=== PATIENT | male | born 1955 | race Caucasian/White ===

== ENCOUNTER 2021-04-13 07:36 | Outpatient (REF) | payer MEDICARE, SELFPAY ==
[2021-04-13 11:01] LABS: MANUAL DIFF FLAG NO
[2021-04-13 11:14] LABS: Appearance Urine HAZY; Color Urine YELLOW; Glucose Urine UA NEG (NEG); Leukocyte Esterase Urine NEG (NEG); Nitrite Urine NEG (NEG); Specific Gravity - Urine 1.025 (1.005-1.025); Urine Blood NEG (NEG); Urine Ketones NEG (NEG); Urine Protein NEG (NEG-TRACE)
[2021-04-13 11:17] LABS: Basophils Absolute Auto 0.1 X10*3/uL (0.0-0.2); Basophils Percent Auto 0.9 % (0-2); Eosinophils Absolute Auto 0.2 X10*3/uL (0.0-0.4); Eosinophils Percent Auto 3.6 % (0-4); Hematocrit 49.5 % (42.0-52.0); Hemoglobin 15.9 g/dl (14.0-18.0); Imm Gran Abs Auto 0.02 X10*3/uL (0.00-0.03); Imm Gran Pct Auto 0.3 % (0.0-0.4); Lymphocytes Absolute Auto 2.3 X10*3/uL (1.2-4.9); Lymphocytes Percent Auto 34.2 % (20-40); Mean Corpuscular HGB Conc 32.1 g/dl (31.0-36.0); Mean Corpuscular Hemoglobin 29.3 pg (27.0-33.0); Mean Corpuscular Volume 91.2 fL (80.0-98.0); Mean Platelet Volume 11.4 fL (9.4-12.4); Monocytes Absolute Auto 0.6 X10*3/uL (0.1-1.2); Monocytes Percent Auto 9.5 % (2-11); Neutrophils Absolute Auto 3.46 x10*3/uL (2.0-8.3); Neutrophils Percent Auto 51.5 % (45-73); Platelet Count 210 X10*3/uL (160-400); Red Blood Count 5.43 X10*6/uL (4.60-5.80); Red Cell Distribution Width 12.6 % (11.0-16.0); White Blood Count 6.7 X10*3/uL (4.8-10.8)
[2021-04-13 11:21] LABS: Estimated Average Glucose 114 mg/dL; Hemoglobin A1c % 5.6 %
[2021-04-13 11:37] LABS: Alanine Aminotransferase 14 U/L (0-40); Albumin Level 4.4 g/dL (3.5-5.0); Alkaline Phosphatase 56 U/L (39-117); Anion Gap 11 (12-20); Aspartate Amino Transferase 18 U/L (5-37); Bilirubin Total 0.8 mg/dL (0.0-1.0); Blood Urea Nitrogen 14 mg/dL (9-16); Calcium 9.1 mg/dL (8.4-10.2); Carbon Dioxide 28 mmol/L (22-29); Chloride 105 mmol/L (96-108); Cholesterol 224 mg/dL; Estimated Glomerular Filt Rate > 60; Glucose Fasting 111 mg/dL (60-99); HDL Cholesterol 50 mg/dL; LDL Cholesterol Calculated 156 mg/dl; Potassium 4.4 mmol/L (3.3-5.1); Sodium 140 mmol/L (135-145); Total Protein 6.9 g/dL (6.5-8.0); Triglycerides 92 mg/dL
[2021-04-13 12:22] LABS: Prostate Specific Antigen 0.78 ng/mL (<0.05-4.0)
== END 2021-04-13 07:37 | disposition home or self-care (01) ==
LOC: HO.HMGCLDS 07:36
PROVIDERS: PCP Internal Medicine; Visit Provider Internal Medicine
DX: Z00.01 Encounter for general adult medical examination with abnormal findings (principal); R35.0 Frequency of micturition; I10 Essential (primary) hypertension; E78.9 Disorder of lipoprotein metabolism, unspecified; E66.09 Other obesity due to excess calories
CPT/HCPCS: 36415; 80053; 80061; 81003; 83036; 84153; 84443; 85025

== ENCOUNTER 2021-08-19 07:25 | Inpatient (IN) | payer MEDICARE, SELFPAY ==
--- NOTE | ~2021-08-19 | CT_ITS ---
EXAMINATION: CT ANGIOGRAM NECK WITH CONTRAST CT ANGIOGRAM BRAIN WITH CONTRAST CLINICAL INFORMATION: Stroke. COMPARISON: Brain MRI 08/19/2021. TECHNIQUE: Test bolus sequences followed by intravenous administration 100 mL of Omnipaque 350. Helical imaging was performed in the axial plane from the thoracic inlet to the skull vertex. The data was processed at the lab animal technologist workstation for generation of MIP sequences. Angled MIPs and volume rendered reformatted images were also generated at an offline 3D workstation. Stenoses are assessed in accordance with NASCET criteria unless otherwise indicated. This CT examination was performed using dose optimization techniques as appropriate, variously including the following: *Automated exposure control *Adjustment of mA and/or kV according to patient size (this includes techniques or standardized protocols for targeted exams where dose is matched to indication/reason for exam; i.e. extremities or head) *Use of iterative reconstruction technique DLP: 1769 mGy-cm FINDINGS: Head CT: No diagnostic head CT was performed (MRI done just prior). No gross mass effect or midline shift is seen. The region of border zone ischemia seen on the MRI is not as well-defined. The extracranial structures are unremarkable allowing for paranasal sinus mucosal thickening. Neck CTA: The aortic arch demonstrates mild atheromatous changes but is patent. The great vessel origins are patent. Atheromatous changes are seen at both carotid bifurcations and along the proximal internal carotid arteries but without significant stenosis. The cervical segments of both ICAs are patent. The bilateral vertebral arteries are patent and are codominant. Head CTA: No proximal vessel occlusion is seen. The intradural vertebral arteries and basilar artery are patent. Both sample steamer are patent. Atheromatous changes are seen at the bilateral carotid siphons without significant stenosis. The right A1 segment is nondominant. The left A1 segment largely supplies the bilateral A2 segments. Both MCAs are patent the MCA collaterals appear symmetric. No discrete aneurysm is seen. The dural venous sinuses are normally opacified. Non-vascular findings: The cervical soft tissues are within normal limits. The upper lungs are essentially clear with background changes of emphysema demonstrated. Multilevel degenerative changes are seen in the spine. CT/CT angio head neck stroke IMPRESSION: No occlusion or high-grade stenosis within the intracranial arteries or the major neck arteries. This critical result was discussed with Dr. Jordan on 08/19/2021 3:05 PM, and it was ascertained that the content and urgency of the report was understood at the time of direct communication.
--- NOTE | ~2021-08-19 | CT_ITS ---
EXAMINATION: CT CERVICAL SPINE WITHOUT CONTRAST CLINICAL INFORMATION: Trauma. Fall. COMPARISON: None TECHNIQUE: Axial images through the cervical spine without contrast. Sagittal and coronal reconstructions on the technologist workstation were performed. This CT examination was performed using dose optimization techniques as appropriate, variously including the following: *Automated exposure control *Adjustment of mA and/or kV according to patient size (this includes techniques or standardized protocols for targeted exams where dose is matched to indication/reason for exam; i.e. extremities or head) *Use of iterative reconstruction technique DLP: 735 mGy-cm FINDINGS: Bone alignment is normal. No fracture or dislocation is seen. There is multilevel degenerative spondylosis and degenerative disc disease from C3-C4 to C6-C7. There are degenerative changes at the C1 dens articulation. Prevertebral soft tissues are normal. There is mild paraseptal emphysema. The lung apices are otherwise unremarkable. CT/CT cervical spine wo con IMPRESSION: Degenerative changes. No fracture or dislocation. Fleischner guidelines were followed.
--- NOTE | ~2021-08-19 | XR_ITS ---
EXAMINATION: XR CHEST CLINICAL INFORMATION: Chest pain. COMPARISON: None TECHNIQUE: Frontal view of the chest was obtained. FINDINGS: The cardiomediastinal silhouette is within normal limits. The lungs are well expanded. No consolidation or effusion. No pneumothorax. No visible rib fracture. XR/XR chest 1V IMPRESSION: No acute cardiopulmonary findings.
--- NOTE | ~2021-08-19 | CT_ITS ---
EXAMINATION: CT HEAD WITHOUT CONTRAST CLINICAL INFORMATION: Seizure. Fall. COMPARISON: None TECHNIQUE: Contiguous axial imaging was performed from the skull base to vertex without intravenous administration of contrast. This CT examination was performed using dose optimization techniques as appropriate, variously including the following: *Automated exposure control *Adjustment of mA and/or kV according to patient size (this includes techniques or standardized protocols for targeted exams where dose is matched to indication/reason for exam; i.e. extremities or head) *Use of iterative reconstruction technique DLP: 817 mGy-cm FINDINGS: There is no evidence of an extra-axial collection. There is no evidence of intra-axial or extra-axial hemorrhage. The ventricles and extra-axial CSF spaces are appropriate. Shankar-white matter differentiation is normal. There is a left basal ganglia pulmonary infarct. No mass or mass effect is seen review of bone windows is normal. No skull fracture is seen. There are inflammatory changes of the ethmoid and left frontal sinuses. CT/CT head/brain wo con IMPRESSION: Left basal ganglia lacunar infarct. Mild inflammatory changes of the ethmoid and left frontal sinuses.
--- NOTE | ~2021-08-19 | MR_ITS ---
EXAMINATION: MR BRAIN WITHOUT CONTRAST CLINICAL INFORMATION: CVA. COMPARISON: Head CT 08/19/2021. TECHNIQUE: Multiplanar, multisequence imaging of the brain was performed without intravenous contrast. FINDINGS: Multiple small foci of acute border zone type infarction are seen at the right parietotemporal and occipital junction. No large or confluent infarction is seen. Mild to moderate patchy T2/FLAIR hyperintensity is seen within the cerebral white matter. The ventricles are normal in size without hydrocephalus. The major arterial flow voids are preserved at the skull base. The orbital contents appear normal. There is moderate polypoid paranasal sinus mucosal thickening/opacification. The mastoids are clear. MR/MR head/brain wo con IMPRESSION: Multiple small foci of acute border zone infarction in the right parietotemporal and occipital junction. No intracranial mass or hemorrhage. Background changes of chronic microangiopathy seen within the white matter.
[2021-08-19 07:50] VITALS: BP 136/72; PULSE 110; PULSE 81; RESP 20; TEMP 36.9; O2SAT 91; BMI 33.9
--- NOTE | 2021-08-19 07:54 | ECG_ITS ---
Test Reason : seizure Blood Pressure : / mmHG Vent. Rate : 079 BPM Atrial Rate : 079 BPM P-R Int : 172 ms QRS Dur : 094 ms QT Int : 390 ms P-R-T Axes : 038 -46 023 degrees QTc Int : 447 ms Normal sinus rhythm Left anterior fascicular block Inferior infarct (cited on or before 21-OCT-2004) Abnormal ECG When compared with ECG of 21-OCT-2004 16:17, Left anterior fascicular block is now Present Referred By: Vito Gee Electronically Signed By:TOMASZ GAMEZ MD
--- NOTE | 2021-08-19 07:56 | ED.GENADULT ---
HPI - General Adult General Chief complaint: Seizure Stated complaint: DIFF BREATHING, DISORIENTED PER EMS Time Seen by Provider: 08/19/21 07:49 Source: patient Mode of arrival: EMS Limitations: no limitations History of Present Illness HPI narrative: Per significative other pt was found in the floor convulsing,was postictal after the episode,now awake and alert ,denies chest pain and sob,states that he had flash feeling in the eyes Yesterday Onset (ago): hour(s) (1) Severity: moderate Pain Consistency: constant Relieving factors: none Exacerbating factors: none Related Data Previous Rx's Medication Instructions Recorded atenolol 50 mg tablet 50 mg PO DAILY 90 Days #90 tab 07/24/21 tamsulosin 0.4 mg capsule (Flomax) 0.4 mg PO BEDTIME 90 Days #90 cap 07/24/21 Allergies Allergy/AdvReac Type Severity Reaction Status Date / Time hydrochlorothiazide Allergy Unknown muscle Verified 05/03/21 07:51 stiffness Review of Systems Constitutional: Constitutional: Denies fever(s) Eyes: Eyes: Reports seeing flashes (Yesterday) ENT: Reports system reviewed and no additional complaints, except as documented Cardiovascular: Cardiovascular: Reports no additional cardiovascular complaints Respiratory: Respiratory: Reports no additional respiratory complaints Gastrointestinal: Gastrointestinal: Reports no additional gastrointestinal complaints Integumentary/Breasts: Skin/Breast: Reports system reviewed and no additional complaints, except as docu PMFSH Past Medical History [facility] Narrative: HTN Social History Social History Housing: House Alcohol intake: current Alcohol intake frequency: a few times a week Patient Tobacco Use Status: Former Tobacco user Tobacco use type: Cigarette Years Smoked: 30 years ago Use of substances other than those prescribed or required for medical reasons: Yes Substance Use Type: Marijuana Advance Directives: No Advance Directives Information Provided: No Current occupational status: retired Physical Exam ED Vital Signs: Vital Signs - 24 hr 08/19/21 07:50 08/19/21 08:10 08/19/21 10:56 Temperature 98.5 F Pulse Rate 81 77 72 Respiratory Rate 20 16 16 Blood Pressure 136/72 160/91 H Pulse Oximetry 91 L 96 96 BMI result Body Mass Index 33.9 Const General: cooperative and no acute distress Nutritional Appearance: average body habitus Orientation/consciousness: patient oriented x3 Limitations: no limitations HENMT Head: Yes normal to inspection General nose exam: Normal external nose present Face and sinus: Yes normal facial exam Mouth: Normal oral and palatal mucosa present Throat: Yes posterior oropharynx normal Neck Neck: Yes normal visual inspection Chest Chest palpation & inspection: normal inspection of the chest Resp Effort & Inspection: normal respiratory effort Auscultation: clear to auscultation bilaterally Cardio Jugular venous distension: no JVD Rate: regular rate Rhythm: regular rhythm GI Inspection: Yes normal to inspection Palpation (GI): Soft to palpation, not firm, nontender, no guarding and not rigid General: Yes no CVA tenderness Back/Spine/Pelvis Back: no CVA tenderness Skin General skin exam: no rashes or lesions noted, elasticity normal and turgor normal Lesions: no lesions Rashes: no rashes Neuro General: patient oriented x3 NIH Stroke Scale Time: 08:00 Level of Consciousness: Alert Level of Consciousness Questions: Answers both questions correctly Level of Consciousness Commands: Performs both tasks correctly Best Gaze: Normal Visual: No visual loss Facial Palsy: Normal Motor Arm (Right): No drift Motor Arm (Left): No drift Motor Leg (Right): No drift Motor Leg (Left): No drift Limb Ataxia: Absent Sensory: Normal Best Language: No aphasia Dysarthia: Normal Extinction and Inattention: No abnormality Score: 0 Course Reevaluation(s) Reevaluation #1: Ct head showed left basal gangliar lacunar infart,case d/w DR Garcia.pt is out os the window for TPA ,his stroke scale is m0 on top he hs seizure Time: 10:26 Medical Decision Making Lab Data Result diagrams: 08/19/21 08:19 08/19/21 08:19 Labs: Lab Results 08/19/21 08/19/21 08/19/21 Range/Units 08:19 08:19 08:19 WBC 8.4 (4.8-10.8) X10*3/uL RBC 5.22 (4.60-5.80) X10*6/uL Hgb 15.2 (14.0-18.0) g/dl Hct 46.2 (42.0-52.0) % MCV 88.5 (80.0-98.0) fL MCH 29.1 (27.0-33.0) pg MCHC 32.9 (31.0-36.0) g/dl RDW 12.7 (11.0-16.0) % Plt Count 157 L D (160-400) X10*3/uL MPV 11.0 (9.4-12.4) fL Immature Gran % (Auto) 0.5 H (0.0-0.4) % Neut % (Auto) 82.4 H (45-73) % Lymph % (Auto) 9.8 L (20-40) % [place] % (Auto) 5.8 (2-11) % Eos % (Auto) 1.4 (0-4) % Baso % (Auto) 0.1 (0-2) % Lymph # (Auto) 0.8 L (1.2-4.9) X10*3/uL [place] # (Auto) 0.5 (0.1-1.2) X10*3/uL Eos # (Auto) 0.1 (0.0-0.4) X10*3/uL Baso # (Auto) 0.0 (0.0-0.2) X10*3/uL Abs Immat Gran (auto) 0.04 H (0.00-0.03) X10*3/uL Absolute Neuts (auto) 6.9 (2.0-8.3) x10*3/uL Absolute Nucleated RBC 0.000 (0.0-0.012) X10*3/uL Nucleated RBC % (auto) 0.0 (0.0-0.2) /100WBC PT 11.7 (9.9-13.0) SEC INR 1.0 (0.9-1.1) APTT 25.0 (24.1-38.0) SEC Sodium 140 (135-145) mmol/L Potassium 4.2 (3.3-5.1) mmol/L Chloride 107 (96-108) mmol/L Carbon Dioxide 23 (22-29) mmol/L Anion Gap 14 (12-20) BUN 14 (9-16) mg/dL Creatinine 1.02 (0.5-1.4) mg/dL Estim Creat Clear Calc 91.3 Estimated GFR > 60 Random Glucose 185 H (60-115) mg/dL Calcium 9.2 (8.4-10.2) mg/dL Total Bilirubin 0.6 (0.0-1.0) mg/dL AST 16 (5-37) U/L ALT 12 (0-40) U/L Alkaline Phosphatase 52 (39-117) U/L Troponin I High Sens (<3.5-35.0) ng/L Total Protein 6.7 (6.5-8.0) g/dL Albumin 4.1 (3.5-5.0) g/dL 08/19/21 Range/Units 08:19 WBC (4.8-10.8) X10*3/uL RBC (4.60-5.80) X10*6/uL Hgb (14.0-18.0) g/dl Hct (42.0-52.0) % MCV (80.0-98.0) fL MCH (27.0-33.0) pg MCHC (31.0-36.0) g/dl RDW (11.0-16.0) % Plt Count (160-400) X10*3/uL MPV (9.4-12.4) fL Immature Gran % (Auto) (0.0-0.4) % Neut % (Auto) (45-73) % Lymph % (Auto) (20-40) % [place] % (Auto) (2-11) % Eos % (Auto) (0-4) % Baso % (Auto) (0-2) % Lymph # (Auto) (1.2-4.9) X10*3/uL [place] # (Auto) (0.1-1.2) X10*3/uL Eos # (Auto) (0.0-0.4) X10*3/uL Baso # (Auto) (0.0-0.2) X10*3/uL Abs Immat Gran (auto) (0.00-0.03) X10*3/uL Absolute Neuts (auto) (2.0-8.3) x10*3/uL Absolute Nucleated RBC (0.0-0.012) X10*3/uL Nucleated RBC % (auto) (0.0-0.2) /100WBC PT (9.9-13.0) SEC INR (0.9-1.1) APTT (24.1-38.0) SEC Sodium (135-145) mmol/L Potassium (3.3-5.1) mmol/L Chloride (96-108) mmol/L Carbon Dioxide (22-29) mmol/L Anion Gap (12-20) BUN (9-16) mg/dL Creatinine (0.5-1.4) mg/dL Estim Creat Clear Calc Estimated GFR Random Glucose (60-115) mg/dL Calcium (8.4-10.2) mg/dL Total Bilirubin (0.0-1.0) mg/dL AST (5-37) U/L ALT (0-40) U/L Alkaline Phosphatase (39-117) U/L Troponin I High Sens 9.1 (<3.5-35.0) ng/L Total Protein (6.5-8.0) g/dL Albumin (3.5-5.0) g/dL ECG Data Attestation: I personally reviewed and interpreted this ECG as follows: Pacemaker model: NSR 79 no ischemic nareshaaaaaaaaaaaaaaaaaaaaaaanges Discharge Plan Discharge Clinical Impression: Seizure, CVA (cerebral vascular accident) Patient Disposition: Admitted As Inpatient
[2021-08-19 08:10] VITALS: PULSE 77; RESP 16; O2SAT 96
--- NOTE | 2021-08-19 08:21 | PC.NURSE ---
Pt does report 2-3 days of flashing lights prior to today. Sat 91% n ra, placed on 2lpm via nc. denies sob or other complaints
[2021-08-19 08:25] LABS: MANUAL DIFF FLAG NO
[2021-08-19 08:32] LABS: Basophils Percent Auto 0.1 % (0-2); Eosinophils Absolute Auto 0.1 X10*3/uL (0.0-0.4); Eosinophils Percent Auto 1.4 % (0-4); Hematocrit 46.2 % (42.0-52.0); Hemoglobin 15.2 g/dl (14.0-18.0); Imm Gran Abs Auto 0.04 X10*3/uL (0.00-0.03); Imm Gran Pct Auto 0.5 % (0.0-0.4); Lymphocytes Absolute Auto 0.8 X10*3/uL (1.2-4.9); Lymphocytes Percent Auto 9.8 % (20-40); Mean Corpuscular HGB Conc 32.9 g/dl (31.0-36.0); Mean Corpuscular Hemoglobin 29.1 pg (27.0-33.0); Mean Corpuscular Volume 88.5 fL (80.0-98.0); Monocytes Absolute Auto 0.5 X10*3/uL (0.1-1.2); Monocytes Percent Auto 5.8 % (2-11); Neutrophils Absolute Auto 6.9 x10*3/uL (2.0-8.3); Neutrophils Percent Auto 82.4 % (45-73); Platelet Count 157 X10*3/uL (160-400); Red Blood Count 5.22 X10*6/uL (4.60-5.80); Red Cell Distribution Width 12.7 % (11.0-16.0); White Blood Count 8.4 X10*3/uL (4.8-10.8)
[2021-08-19 08:34] LABS: Prothrombin Time 11.7 SEC (9.9-13.0)
[2021-08-19 08:44] LABS: Alanine Aminotransferase 12 U/L (0-40); Albumin Level 4.1 g/dL (3.5-5.0); Alkaline Phosphatase 52 U/L (39-117); Anion Gap 14 (12-20); Aspartate Amino Transferase 16 U/L (5-37); Bilirubin Total 0.6 mg/dL (0.0-1.0); Blood Urea Nitrogen 14 mg/dL (9-16); Calcium 9.2 mg/dL (8.4-10.2); Carbon Dioxide 23 mmol/L (22-29); Chloride 107 mmol/L (96-108); Creatinine Clr Calc Pharmacy 91.3; Estimated Glomerular Filt Rate > 60; Glucose Random 185 mg/dL (60-115); Potassium 4.2 mmol/L (3.3-5.1); Sodium 140 mmol/L (135-145); Total Protein 6.7 g/dL (6.5-8.0)
[2021-08-19 08:49] LABS: Troponin-I High Sensitivity 9.1 ng/L (<3.5-35.0)
[2021-08-19] MEDS: Aspirin 325 MG TABLET PO (10:44)
[2021-08-19] MEDS: levETIRAcetam 750 MG in 0.9 % Sodium Chloride 100 ML 430 MG IV (10:48)
[2021-08-19 10:56] VITALS: BP 160/91; PULSE 72; RESP 16; O2SAT 96
--- NOTE | 2021-08-19 10:59 | PC.NURSE ---
MRI screening form complete, neuro at bedside for evaluation
[2021-08-19 11:00] LABS: COVID-19 Test Negative (Negative)
--- NOTE | 2021-08-19 11:11 | PHA.MEDREC ---
Pharmacy Consult ? Medication Reconciliation Pharmacy has completed the medication reconciliation. Spoke with patient, daughter and who was on speaker phone.
--- NOTE | 2021-08-19 11:21 | P.CNNE_ITS ---
History of Present Illness Data of Consult Service Date: 08/19/21 Primary Care Provider: Ronal Marino MD [facility] Reason for consult: Stroke and seizure 66 years old man was brought to hospital after his found him unresponsive and seizing in bathroom. He said that during last few days he was having episodes when suddenly he would see bright lights on both sides of visual field. These episodes were lasting from minutes to 2 and continued all day. Yesterday he was in the bathroom when he had some similar symptoms and then he did not know what happened. His heard a noise inside the bathroom and found him on the floor convulsing. He shook for about a minute and then was unresponsive for a while. There was no incontinence. He did not sustain significant physical injury. Now he was back to baseline. Review of Systems Review of Systems: No recent headache or trauma. [facility] Social History Social History Housing: House Alcohol intake: current Alcohol intake frequency: a few times a week Patient Tobacco Use Status: Former Tobacco user Tobacco use type: Cigarette Years Smoked: 30 years ago Use of substances other than those prescribed or required for medical reasons: Yes Substance Use Type: Marijuana Advance Directives: No Advance Directives Information Provided: No Current occupational status: retired Meds Allergies Allergy/AdvReac Type Severity Reaction Status Date / Time hydrochlorothiazide Allergy Unknown muscle Verified 05/03/21 07:51 stiffness Active Medications: Current Medications Levetiracetam 750 mg/ Sodium (Chloride) 107.5 mls @ 430 mls/hr IV Q12H GARY Last Admin: 08/19/21 10:48 Dose: 430 mls/hr Documented by: Pharmacy Consult (Consult Rx Perform Med Rec) 1 each MISCELLANE ONCE PRN PRN Reason: Consult order Physical Exam Vital Signs: Vital Signs: Last Vital Signs Temp 98.5 F 08/19/21 07:50 Pulse 72 08/19/21 10:56 Resp 16 08/19/21 10:56 BP 160/91 H 08/19/21 10:56 Pulse Ox 96 08/19/21 10:56 BMI result Body Mass Index 33.9 Neuro: Other: Alert and awake with normal spontaneity of speech fluency comprehension and affect. Pupils were equal round reactive to light. With double simultaneous stimulation he did not recognize movement on left side of visual field. Face was symmetrical. There was no pronator drift. Deep tendon reflexes were trace with flexor plantars. Results Labs CBC & Chem 7: 08/19/21 08:19 08/19/21 08:19 Labs: Short CBC 08/19/21 Range/Units 08:19 WBC 8.4 (4.8-10.8) X10*3/uL Hgb 15.2 (14.0-18.0) g/dl Hct 46.2 (42.0-52.0) % Plt Count 157 L D (160-400) X10*3/uL BMP 08/19/21 08:19 Sodium 140 Potassium 4.2 Chloride 107 Carbon Dioxide 23 BUN 14 Creatinine 1.02 Calcium 9.2 Liver Function 08/19/21 Range/Units 08:19 Total Bilirubin 0.6 (0.0-1.0) mg/dL AST 16 (5-37) U/L ALT 12 (0-40) U/L Alkaline Phosphatase 52 (39-117) U/L Albumin 4.1 (3.5-5.0) g/dL Noncontrast head CT revealed slight hyperdensity around the tent, mild microvascular disease and no definite new lesion. Assessment and Plan (1) Seizure: Status: Acute 66 years old man who was found by his in the bathroom unresponsive and shaking. According to her he had a convulsion for about a minute or 2 and then he was confused around responsive for a while. He reported seeing flashes of light during last few days. His examination revealed left visual extinction or hemianopsia. CT scan of brain without contrast did not reveal any significant new lesion. My recommendation is to obtain an MRI of brain with and without contrast, and an EEG, and advised him to not drive at this time or be involved in an activity that could put his life in danger such as swimming alone or sitting in a soaking tub alone. Procedures Date of Service Date of Service: 08/19/21
--- NOTE | 2021-08-19 12:35 | P.HPHOSP_ITS ---
History of Present Illness Date of Service: 08/19/21 <Bryanna Jordan NP - Last Filed: 08/19/21 16:26> Chief Complaint: Fall, seizure <Bryanna Jordan NP - Last Filed: 08/19/21 16:26> 66 year old man presenting after a fall and possible seizure. Yesterday he was having flashing lights to his peripheral vision bilaterally that started yesterday. He stated that it would come and go. Then today he woke up and suddenly fell forward falling through a towel rack. The next thing he remembered was being helped out by the EMS. His found him floor seizing, full body shaking. He denied recent illness, sick contacts, fever, chills, nausea, vomiting, diarrhea. He denied hx of seizures. MRI showed multiple small foci of acute border zone infarctions in the right parietal temporal and occipital junction.His labs were WNL. He was started on IV Keppra in the ED. He will be admitted for acute stroke and seizure. <Bryanna Jordan NP - Last Filed: 08/19/21 16:26> Review of Systems Review of Systems: Denies any recent fever chills or decrease in appetite respiratory denies any shortness of breath coverage production cardiovascular denies chest pain gastrointestinal denies any dysphagia abdominal pain nausea vomiting or diarrhea genitourinary denies any dysuria frequency or hematuria musculoskeletal denies any joint pain or swelling neuropsych See HPI all other systems reviewed are negative <Bryanna Jordan NP - Last Filed: 08/19/21 16:26> [facility] Medical History: Medical History BPH (benign prostatic hyperplasia) Hypertension, essential <Bryanna Jordan NP - Last Filed: 08/19/21 16:26> Social History: Social History Household Members: Spouse Housing: House Alcohol intake: current Alcohol intake frequency: a few times a week Patient Tobacco Use Status: Former Tobacco user Tobacco use type: Cigarette Years Smoked: 30 years ago Substance Use Type: Marijuana service: No Current occupational status: employed and retired <JOSÉ MIGUEL Liang Last Filed: 08/19/21 16:26> Meds Allergies/Adverse reactions: Allergies Allergy/AdvReac Type Severity Reaction Status Date / Time hydrochlorothiazide Allergy Unknown muscle Verified 09/03/21 08:46 stiffness <Bryanna Jordan NP - Last Filed: 08/19/21 16:26> Active Medications: Current Medications Levetiracetam 750 mg/ Sodium (Chloride) 107.5 mls @ 430 mls/hr IV Q12H GARY Last Infusion: 08/19/21 11:29 Dose: Infused Documented by: Pharmacy Consult (Consult Rx Perform Med Rec) 1 each MISCELLANE ONCE PRN PRN Reason: Consult order <Bryanna Jordan NP - Last Filed: 08/19/21 16:26> Physical Exam Vital Signs and Narrative: Vital Signs: Last Vital Signs Temp 98.5 F 08/19/21 07:50 Pulse 72 08/19/21 10:56 Resp 16 08/19/21 10:56 BP 160/91 H 08/19/21 10:56 Pulse Ox 96 08/19/21 10:56 BMI result Body Mass Index 33.9 <Bryanna Jordan NP - Last Filed: 08/19/21 16:26> Appearing in no acute distress head is normocephalic atraumatic eyes pupils are PERRLA sclera is anicteric mouth throat mucous membranes are intact and moist neck is supple no lymphadenopathy, no JVD noted lung sounds are clear to auscultation heart regular rate rhythm, clear S1, S2 positive bowel sounds, abdomen is soft, nontender neuro patient is alert x3, no focal deficits <Bryanna Jordan NP - Last Filed: 08/19/21 16:26> Results Labs CBC and Chem 7: : 08/21/21 05:54 08/21/21 05:54 <Bryanna Jordan NP - Last Filed: 08/19/21 16:26> Labs: Laboratory Results - last 24 hr 08/19/21 08/19/21 08/19/21 08:19 08:19 08:19 MCV 88.5 MCH 29.1 MCHC 32.9 RDW 12.7 Plt Count 157 L D MPV 11.0 Immature Gran % (Auto) 0.5 H Neut % (Auto) 82.4 H Lymph % (Auto) 9.8 L [place] % (Auto) 5.8 Eos % (Auto) 1.4 Baso % (Auto) 0.1 Lymph # (Auto) 0.8 L [place] # (Auto) 0.5 Eos # (Auto) 0.1 Baso # (Auto) 0.0 Abs Immat Gran (auto) 0.04 H Absolute Neuts (auto) 6.9 Absolute Nucleated RBC 0.000 Nucleated RBC % (auto) 0.0 PT 11.7 INR 1.0 APTT 25.0 Anion Gap 14 Estim Creat Clear Calc 91.3 Estimated GFR > 60 Random Glucose 185 H Calcium 9.2 Total Bilirubin 0.6 AST 16 ALT 12 Alkaline Phosphatase 52 Total Protein 6.7 Albumin 4.1 COVID-19 ([facility]) COVID-19 Clin Com 08/19/21 10:31 MCV MCH MCHC RDW Plt Count MPV Immature Gran % (Auto) Neut % (Auto) Lymph % (Auto) [place] % (Auto) Eos % (Auto) Baso % (Auto) Lymph # (Auto) [place] # (Auto) Eos # (Auto) Baso # (Auto) Abs Immat Gran (auto) Absolute Neuts (auto) Absolute Nucleated RBC Nucleated RBC % (auto) PT INR APTT Anion Gap Estim Creat Clear Calc Estimated GFR Random Glucose Calcium Total Bilirubin AST ALT Alkaline Phosphatase Total Protein Albumin COVID-19 ([facility]UDIA) Negative COVID-19 Clin Com See Note <Bryanna Jordan NP - Last Filed: 08/19/21 16:26> Imaging Radiologist's Impressions: Impressions Chest X-Ray 08/19/21 08:37 IMPRESSION: No acute cardiopulmonary findings. Head CT 08/19/21 09:19 IMPRESSION: Left basal ganglia lacunar infarct. Mild inflammatory changes of the ethmoid and left frontal sinuses. Cervical Spine CT 08/19/21 09:20 IMPRESSION: Degenerative changes. No fracture or dislocation. Fleischner guidelines were followed. <Bryanna Jordan NP - Last Filed: 08/19/21 16:26> Assessment and Plan (1) Hypertension, essential: Status: Inactive <Bryanna Jordan NP - Last Filed: 08/19/21 16:26> (2) Seizure: Status: Resolved <Bryanna Jordan NP - Last Filed: 08/19/21 16:26> (3) CVA (cerebral vascular accident): Status: Acute <Bryanna Jordan NP - Last Filed: 08/19/21 16:26> Plan 66 year old man admitted with new onset seizure and acute stroke Acute/subacute stroke MRI showing multiple small infarctions in the right parietotemporal and occipital junction Neurology following Aspirin and statin Echo with bubble Head CTA with no significant stenosis PT/OT New onset seizure. possibly secondary to stroke EEG Neuro following continue Keppra seizure precautions Hypertension continue atenolol BPH continue tamsulosin DVT prophylaxis with Attending Dr. Holliday Full code <Bryanna Jordan NP - Last Filed: 08/19/21 16:26> Quality Stroke Does the patient have a stroke diagnosis?: Yes <Bryanna Jordan NP - Last Filed: 08/19/21 16:26> Reason for No Anti-thrombotic by Day Two: N/A - Med Ordered <Bryanna Jordan NP - Last Filed: 08/19/21 16:26> VTE Prior VTE?: No <Bryanna Jordan NP - Last Filed: 08/19/21 16:26> VTE Risk Level:: Medical - moderate - high <Bryanna Jordan NP - Last Filed: 08/19/21 16:26> VTE Device Contraindication: Treatment Not Indicated <Bryanna Jordan NP - Last Filed: 08/19/21 16:26> VTE Drug Contraindication: N/A - Med Ordered <Bryanna Jordan NP - Last Filed: 08/19/21 16:26>
[2021-08-19 12:58] VITALS: BP 155/90; PULSE 67; RESP 18; O2SAT 97
[2021-08-19] MEDS: Enoxaparin Sodium 40 MG/0.4 ML SYRINGE SUBCUT (12:59)
--- NOTE | 2021-08-19 13:41 | MHC.CM.PN ---
Addendum entered by Aleah Tsang 08/19/21 15:04: PT CHANGED TO INPATIENT STATUS. IMM DELIVERED Original Note: CM MET WITH PT AT HIS REQUEST HE IS WORRIED ABOUT COST RELATED TO BLS TRANSPORT AND ADMISSION CM EXPLAINED OBSERVATION STATUS TO PT AND ENCOURAGED HE AND HIS TO CONTACT THE INSURANCE COMPANY DIRECTLY PT REPORTS BEING INDEPENDENT WITH CARE AND USING NO DME OR SERVICES HE IS UNSURE IF HE HAS A HCP BUT WILL CHECK WITH ONCE SHE IS OFF THE PHONE PT CONFIRMS HIS PCP IS JOEY ZEE OBSERVATION NOTICE DELIVERED, COPY SENT TO [facility] CURRENT DC PLAN IS HOME WITH NO SERVICES TO TRANSPORT
[2021-08-19] MEDS: iohexoL 350 MG/ML 100 ML INFUS..BTL IV (14:51)
[2021-08-19] MEDS: 0.9 % Sodium Chloride Flush 3 ML SYRINGE IVFLUSH (17:25)
[2021-08-19 20:00] VITALS: BP 149/70; PULSE 70; RESP 18; TEMP 36.6; O2SAT 98
[2021-08-19] MEDS: Atorvastatin Calcium 40 MG TABLET PO (20:44)
[2021-08-19] MEDS: Tamsulosin HCL 0.4 MG CAPSULE PO (20:44)
[2021-08-19 23:27] VITALS: BP 171/96; PULSE 54; RESP 17; TEMP 36.3; O2SAT 95
[2021-08-20 03:50] VITALS: BP 179/93; PULSE 62; RESP 17; TEMP 36.8; O2SAT 95
[2021-08-20 06:54] LABS: MANUAL DIFF FLAG NO
[2021-08-20 07:00] LABS: Basophils Percent Auto 0.5 % (0-2); Eosinophils Absolute Auto 0.2 X10*3/uL (0.0-0.4); Eosinophils Percent Auto 3.7 % (0-4); Hemoglobin 14.2 g/dl (14.0-18.0); Imm Gran Abs Auto 0.02 X10*3/uL (0.00-0.03); Imm Gran Pct Auto 0.4 % (0.0-0.4); Lymphocytes Absolute Auto 1.6 X10*3/uL (1.2-4.9); Mean Corpuscular Hemoglobin 29.3 pg (27.0-33.0); Mean Corpuscular Volume 88.7 fL (80.0-98.0); Mean Platelet Volume 10.8 fL (9.4-12.4); Monocytes Absolute Auto 0.5 X10*3/uL (0.1-1.2); Monocytes Percent Auto 8.5 % (2-11); Neutrophils Absolute Auto 3.3 x10*3/uL (2.0-8.3); Neutrophils Percent Auto 58.9 % (45-73); Platelet Count 142 X10*3/uL (160-400); Red Blood Count 4.85 X10*6/uL (4.60-5.80); Red Cell Distribution Width 12.7 % (11.0-16.0); White Blood Count 5.6 X10*3/uL (4.8-10.8)
[2021-08-20 07:14] LABS: Anion Gap 10 (12-20); Blood Urea Nitrogen 13 mg/dL (9-16); Calcium 8.7 mg/dL (8.4-10.2); Carbon Dioxide 28 mmol/L (22-29); Chloride 107 mmol/L (96-108); Creatinine Clr Calc Pharmacy 102.4; Estimated Glomerular Filt Rate > 60; Glucose Random 109 mg/dL (60-115); Potassium 4.4 mmol/L (3.3-5.1); Sodium 141 mmol/L (135-145)
[2021-08-20 07:15] LABS: Cholesterol 198 mg/dL; HDL Cholesterol 43 mg/dL; LDL Cholesterol Calculated 135 mg/dl; Triglycerides 102 mg/dL
[2021-08-20 07:39] VITALS: BP 147/92; PULSE 66; RESP 18; TEMP 36.4; O2SAT 96
[2021-08-20] MEDS: Aspirin 81 MG TAB.CHEW PO (07:51)
[2021-08-20] MEDS: levETIRAcetam 500 MG TABLET PO ×2 (07:51→20:52)
[2021-08-20] MEDS: atenoloL 50 MG TABLET PO (07:51)
[2021-08-20] MEDS: 0.9 % Sodium Chloride Flush 3 ML SYRINGE IVFLUSH ×3 (07:52→20:52)
--- NOTE | 2021-08-20 09:26 | HO.PM.IMPN ---
Subjective Subjective Date of Service: 08/20/21 Review of Systems Follow up embolic stroke ? seizure feeling fine today Sitting up in bed, no weakness Physical Exam Vital Signs: Vital Signs: Last Vital Signs Temp 97.5 F 08/20/21 07:39 Pulse 66 08/20/21 07:39 Resp 18 08/20/21 07:39 BP 147/92 H 08/20/21 07:39 Pulse Ox 96 08/20/21 07:39 BMI result Body Mass Index 33.9 Appearing in no acute distress lung sounds are clear to auscultation heart regular rate rhythm, clear S1, S2 positive bowel sounds, abdomen is soft, nontender neuro patient is alert x3, no focal deficits Objective Data Active Medications Acetaminophen (Acetaminophen 325 Mg Tablet) 650 mg PO Q6H PRN PRN Reason: Pain, Mild (Pain Scale 1-3) Aspirin (Aspirin 81 Mg Tab.Chew) 81 mg PO DAILY [facility] Last Admin: 08/20/21 07:51 Dose: 81 mg Documented by: JEREMY Atenolol (Atenolol 50 Mg Tablet) 50 mg PO DAILY [facility]; Protocol Last Admin: 08/20/21 07:51 Dose: 50 mg Documented by: JEREMY Atorvastatin Calcium (Atorvastatin Calcium 40 Mg Tablet) 40 mg PO BEDTIME [facility] Last Admin: 08/19/21 20:44 Dose: 40 mg Documented by: DAWNA Enoxaparin Sodium (Enoxaparin Sodium 40 Mg/0.4 Ml Syringe) 40 mg SUBCUT Q24H [facility] Last Admin: 08/19/21 12:59 Dose: 40 mg Documented by: TYLER Levetiracetam (Levetiracetam 500 Mg Tablet) 500 mg PO BID [facility] Last Admin: 08/20/21 07:51 Dose: 500 mg Documented by: JEREMY Ondansetron HCl (Ondansetron Hcl 4 Mg/2 Ml Vial) 4 mg IVPUSH Q8H PRN PRN Reason: Nausea and Vomiting Pharmacy Consult (Consult Rx Perform Med Rec) 1 each MISCELLANE ONCE PRN PRN Reason: Consult order Sodium Chloride (0.9 % Sodium Chloride Flush 3 Ml Syringe) 3 ml IVFLUSH QSHIFT [facility] Last Admin: 08/20/21 07:52 Dose: 3 ml Documented by: JEREMY Tamsulosin HCl (Tamsulosin Hcl 0.4 Mg Capsule) 0.4 mg PO BEDTIME [facility] Last Admin: 08/19/21 20:44 Dose: 0.4 mg Documented by: DAWNA Labs CBC & Chem 7: 08/20/21 06:42 08/20/21 06:42 Labs: Laboratory Results - last 24 hr 08/19/21 08/20/21 08/20/21 10:31 06:42 06:42 MCV 88.7 MCH 29.3 MCHC 33.0 RDW 12.7 Plt Count 142 L MPV 10.8 Immature Gran % (Auto) 0.4 Neut % (Auto) 58.9 Lymph % (Auto) 28.0 Reagan % (Auto) 8.5 Eos % (Auto) 3.7 Baso % (Auto) 0.5 Lymph # (Auto) 1.6 Reagan # (Auto) 0.5 Eos # (Auto) 0.2 Baso # (Auto) 0.0 Abs Immat Gran (auto) 0.02 Absolute Neuts (auto) 3.3 Absolute Nucleated RBC 0.000 Nucleated RBC % (auto) 0.0 Anion Gap 10 L Estim Creat Clear Calc 102.4 Estimated GFR > 60 Random Glucose 109 D Calcium 8.7 Triglycerides Cholesterol LDL Cholesterol, Calc HDL Cholesterol COVID-19 ([facility]) Negative COVID-19 Clin Com See Note 08/20/21 06:42 MCV MCH MCHC RDW Plt Count MPV Immature Gran % (Auto) Neut % (Auto) Lymph % (Auto) Reagan % (Auto) Eos % (Auto) Baso % (Auto) Lymph # (Auto) Reagan # (Auto) Eos # (Auto) Baso # (Auto) Abs Immat Gran (auto) Absolute Neuts (auto) Absolute Nucleated RBC Nucleated RBC % (auto) Anion Gap Estim Creat Clear Calc Estimated GFR Random Glucose Calcium Triglycerides 102 Cholesterol 198 LDL Cholesterol, Calc 135 HDL Cholesterol 43 COVID-19 ([facility]) COVID-19 Clin Com Assessment and Plan (1) Seizure: Status: Acute (2) CVA (cerebral vascular accident): Status: Acute Plan Acute/subacute stroke Likely embolic stroke MRI showing multiple small infarctions? in the right parietotemporal and occipital junction Neurology following Aspirin and statin Echo with bubble may need STACI, cardiology consult, will likely also need holter on dc Head CTA with no significant stenosis PT/OT New onset seizure. possibly secondary to stroke EEG Neuro following continue Keppra seizure precautions Hypertension continue atenolol BPH continue tamsulosin DVT prophylaxis with Attending Dr. Rosen Full code Quality Stroke Does the patient have a stroke diagnosis?: Yes Reason for No Anti-thrombotic by Day Two: N/A - Med Ordered VTE Prior VTE?: No VTE Risk Level:: Medical - moderate - high VTE Device Contraindication: Treatment Not Indicated VTE Drug Contraindication: N/A - Med Ordered
[2021-08-20 11:50] VITALS: BP 141/84; PULSE 52; RESP 17; TEMP 36.3; O2SAT 96
--- NOTE | 2021-08-20 12:56 | MHC.CM.PN ---
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 CASE MANAGEMENT FOLLOWING FOR DISCHARGE NEEDS.
--- NOTE | 2021-08-20 13:39 | P.CONCA_ITS ---
History of Present Illness History of Present Illness Date of Service: 08/20/21 Requesting physician: Jefferson Rosen Chief complaint: Embolic CVA Narrative: I was requested to see Penelope in cardiology consultation today as he came in with seizure. Subsequent workup reveals bilateral new and old evidence of infarcts. There was some evidence of acute and some chronic infarct in bilateral cerebral hemisphere raising the possibility of embolic event. Patient present with symptoms of unresponsive episode with seizure in the bathroom. Prior to that it was preceded by seeing bright lights in both sides of visual field. He has had no focal neurologic deficits at current time. Prior history of elevated fasting sugars and hyperlipidemia. No prior history of strokes that he is aware of. No prior history of vascular disease or coronary artery disease or myocardial infarction. Denies any symptoms of palpitations or fast irregular heart beat in the past. His neck CTA does not show any evidence of significant extra or intracranial vascular disease Review of Systems Constitutional: Constitutional: Reports no additional constitutional complaints and Denies weakness Eyes: Eyes: Reports no additional eye complaints ENT: Reports system reviewed and no additional complaints, except as documented Cardiovascular: Cardiovascular: Reports no additional cardiovascular complaints Respiratory: Respiratory: Reports no additional respiratory complaints Gastrointestinal: Gastrointestinal: Reports no additional gastrointestinal complaints Genitourinary: Genitourinary: Reports no additional male genitourinary complaints Integumentary/Breasts: Skin/Breast: Reports system reviewed and no additional complaints, except as docu Neurologic: Denies Neuro-related abnormal movements, Denies Abnormal speech present, Reports Other visual disturbances, Reports seizure-like activity and Denies weakness Psychiatric: Psychiatric: Reports no additional psychiatric complaints Endocrine: Endocrine: Reports no additional endocrine complaints [facility] Past Medical History Medical History BPH (benign prostatic hyperplasia) Hypertension, essential Social History Social History Household Members: Spouse Housing: House Alcohol intake: current Alcohol intake frequency: a few times a week Patient Tobacco Use Status: Former Tobacco user Tobacco use type: Cigarette Years Smoked: 30 years ago Use of substances other than those prescribed or required for medical reasons: No Substance Use Type: Marijuana Currently Displaying Signs/Symptoms of Drug Intoxication Withdrawal: No Have you been hit, kicked, punched, or otherwise hurt by someone within the past year? If so, by whom?: No Do you feel safe in your current relationship?: Yes Is there a partner from a previous relationship who is making you feel unsafe now?: No Are you made to feel afraid or neglected: No Advance Directives: No Advance Directives Information Provided: No Do you have thoughts of harming others: None Do you have a plan to hurt others: No Plan Recently lost weight without trying: No Eating poorly because of decreased appetite: No Nutrition Risks: No Nutritional Risk service: No Current occupational status: employed and retired Meds Allergies Allergy/AdvReac Type Severity Reaction Status Date / Time hydrochlorothiazide Allergy Unknown muscle Verified 05/03/21 07:51 stiffness Active Medications: Current Medications Acetaminophen (Acetaminophen 325 Mg Tablet) 650 mg PO Q6H PRN PRN Reason: Pain, Mild (Pain Scale 1-3) Aspirin (Aspirin 81 Mg Tab.Chew) 81 mg PO DAILY [facility] Last Admin: 08/20/21 07:51 Dose: 81 mg Documented by: Atenolol (Atenolol 50 Mg Tablet) 50 mg PO DAILY [facility]; Protocol Last Admin: 08/20/21 07:51 Dose: 50 mg Documented by: Atorvastatin Calcium (Atorvastatin Calcium 40 Mg Tablet) 40 mg PO BEDTIME [facility] Last Admin: 08/19/21 20:44 Dose: 40 mg Documented by: Enoxaparin Sodium (Enoxaparin Sodium 40 Mg/0.4 Ml Syringe) 40 mg SUBCUT Q24H [facility] Last Admin: 08/19/21 12:59 Dose: 40 mg Documented by: Levetiracetam (Levetiracetam 500 Mg Tablet) 500 mg PO BID [facility] Last Admin: 08/20/21 07:51 Dose: 500 mg Documented by: Ondansetron HCl (Ondansetron Hcl 4 Mg/2 Ml Vial) 4 mg IVPUSH Q8H PRN PRN Reason: Nausea and Vomiting Pharmacy Consult (Consult Rx Perform Med Rec) 1 each MISCELLANE ONCE PRN PRN Reason: Consult order Sodium Chloride (0.9 % Sodium Chloride Flush 3 Ml Syringe) 3 ml IVFLUSH QSHIFT [facility] Last Admin: 08/20/21 07:52 Dose: 3 ml Documented by: Tamsulosin HCl (Tamsulosin Hcl 0.4 Mg Capsule) 0.4 mg PO BEDTIME [facility] Last Admin: 08/19/21 20:44 Dose: 0.4 mg Documented by: Physical Exam Vital Signs: Vital Signs: Last Vital Signs Temp 97.3 F 08/20/21 11:50 Pulse 52 08/20/21 11:50 Resp 17 08/20/21 11:50 BP 141/84 H 08/20/21 11:50 Pulse Ox 96 08/20/21 11:50 BMI result Body Mass Index 33.9 Const: General: cooperative, comfortable, no acute distress, alert and awake Nutritional Appearance: obese Orientation/consciousness: patient oriented x3 Limitations: no limitations HENMT: Head: Yes normocephalic and Yes atraumatic Neck: Neck: Yes trachea midline, Yes supple and Yes no JVD Chest: Chest palpation & inspection: normal inspection of the chest Resp: Effort & Inspection: normal respiratory effort Auscultation: clear to auscultation bilaterally Cardio: Jugular venous distension: no JVD Palpation: normal PMI Rate: regular rate Rhythm: regular rhythm Heart sounds: S1 normal heart sound present, S2 normal heart sound present, no click, no gallops, no murmurs and no rubs GI: Auscultation: normal bowel sounds Skin: General skin exam: no rashes or lesions noted Neuro: General: patient oriented x3 and no focal motor deficits Speech: No Abnormal speech present Extrem: General: Yes no clubbing, cyanosis or edema Objective Labs and Meds Result diagrams: 08/20/21 06:42 08/20/21 06:42 Lab results: Laboratory Results - last 24 hr 08/20/21 08/20/21 08/20/21 06:42 06:42 06:42 WBC 5.6 RBC 4.85 Hgb 14.2 Hct 43.0 MCV 88.7 MCH 29.3 MCHC 33.0 RDW 12.7 Plt Count 142 L MPV 10.8 Immature Gran % (Auto) 0.4 Neut % (Auto) 58.9 Lymph % (Auto) 28.0 Avery % (Auto) 8.5 Eos % (Auto) 3.7 Baso % (Auto) 0.5 Lymph # (Auto) 1.6 Avery # (Auto) 0.5 Eos # (Auto) 0.2 Baso # (Auto) 0.0 Abs Immat Gran (auto) 0.02 Absolute Neuts (auto) 3.3 Absolute Nucleated RBC 0.000 Nucleated RBC % (auto) 0.0 Sodium 141 Potassium 4.4 Chloride 107 Carbon Dioxide 28 Anion Gap 10 L BUN 13 Creatinine 0.91 Estim Creat Clear Calc 102.4 Estimated GFR > 60 Random Glucose 109 D Calcium 8.7 Triglycerides 102 Cholesterol 198 LDL Cholesterol, Calc 135 HDL Cholesterol 43 Imaging Radiologist's impression: Impressions Head/Neck CTA 08/19/21 14:52 IMPRESSION: No occlusion or high-grade stenosis within the intracranial arteries or the major neck arteries. This critical result was discussed with Dr. Jordan on 08/19/2021 3:05 PM, and it was ascertained that the content and urgency of the report was understood at the time of direct communication. Assessment and Plan (1) Cerebrovascular accident, embolic: Status: Acute Patient with multiple lesions suggestive prior CVA, acute as well as chronic in bilateral hemispheres. This is suggestive of embolic phenomenon. I agree with pursuing transesophageal echocardiogram to assess for cardiac source of emboli including evaluation for cardiac masses, thrombi, PFO as well as ascending and arch of the aorta for further treatment options. Will also get a better look at left atrial appendage. If this is negative should pursue with implantable loop recorder placement given patient's high risk for atrial fibrillation given his age, hypertension and overall metabolic future that may make improved to atrial fibrillation which will guide further therapy. For not treatment is oral anticoagulation therapy. Continue statin therapy target goal LDL less than 100 mg/dL. We discussed with patient the procedure of STACI including risk, benefits, alternatives 2nd opinion. Understands agrees. Also discussed with patient the placement of implantable loop recorder including risk, benefits. He understands agrees. Procedures Date of Service Date of Service: 08/20/21
[2021-08-20] MEDS: Enoxaparin Sodium 40 MG/0.4 ML SYRINGE SUBCUT (14:16)
[2021-08-20 15:43] VITALS: BP 175/107; PULSE 56; RESP 18; TEMP 36.3; O2SAT 96
[2021-08-20 17:31] LABS: Prothrombin Time 11.5 SEC (9.9-13.0)
[2021-08-20] MEDS: Warfarin Sodium 5 MG TABLET PO (17:52)
[2021-08-20 19:56] VITALS: BP 160/78; PULSE 53; RESP 18; TEMP 36.5; O2SAT 97
[2021-08-20] MEDS: Atorvastatin Calcium 40 MG TABLET PO (20:52)
[2021-08-20] MEDS: Tamsulosin HCL 0.4 MG CAPSULE PO (20:52)
[2021-08-21] VITALS (8 sets, daily range): BP systolic 101–170; BP diastolic 41–95; PULSE 45–57; RESP 16–18; TEMP 36.1–36.5; O2SAT 94–98
[2021-08-21 06:19] LABS: Hematocrit 44.7 % (42.0-52.0); Hemoglobin 14.4 g/dl (14.0-18.0); Mean Corpuscular HGB Conc 32.2 g/dl (31.0-36.0); Mean Corpuscular Hemoglobin 29.1 pg (27.0-33.0); Mean Corpuscular Volume 90.3 fL (80.0-98.0); Mean Platelet Volume 11.4 fL (9.4-12.4); Platelet Count 151 X10*3/uL (160-400); Red Blood Count 4.95 X10*6/uL (4.60-5.80); Red Cell Distribution Width 12.6 % (11.0-16.0); White Blood Count 5.6 X10*3/uL (4.8-10.8)
[2021-08-21 06:25] LABS: INTERNATIONAL NORM RATIO 1.1 (0.9-1.1); Prothrombin Time 12.3 SEC (9.9-13.0)
[2021-08-21 06:32] LABS: Anion Gap 12 (12-20); Blood Urea Nitrogen 16 mg/dL (9-16); Carbon Dioxide 27 mmol/L (22-29); Chloride 107 mmol/L (96-108); Creatinine Clr Calc Pharmacy 101.2; Estimated Glomerular Filt Rate > 60; Glucose Random 106 mg/dL (60-115); Potassium 4.5 mmol/L (3.3-5.1); Sodium 141 mmol/L (135-145)
[2021-08-21] MEDS: atenoloL 50 MG TABLET PO (07:43)
[2021-08-21] MEDS: levETIRAcetam 500 MG TABLET PO (07:43)
[2021-08-21] MEDS: Aspirin 81 MG TAB.CHEW PO (07:44)
[2021-08-21] MEDS: 0.9 % Sodium Chloride Flush 3 ML SYRINGE IVFLUSH (07:44)
--- NOTE | 2021-08-21 09:01 | P.DS_ITS ---
DS: Providers Provider Date of Service: 08/21/21 Date of admission: 08/19/21 14:36 Primary care physician: Ronal Marino MD Consults: 08/19/21 12:43 Consult to Neurology Routine Consulting Provider: [facility] Reason for consultation: seizure Has provider been notified: Yes 08/20/21 09:30 Consult to Cardiology Routine Consulting Provider: Nik Kim Reason for consultation: ? George, embolic stroke Has provider been notified: No DS: Diagnosis Discharge Diagnosis (1) Cerebrovascular accident, embolic: Status: Acute DS: Summary Hospital Course Hospital Course: Chief Complaint: Fall, seizure 66 year old man presenting after a fall and possible seizure. Yesterday he was having flashing lights to his peripheral vision bilaterally that started yesterday. He stated that it would come and go. Then today he woke up and suddenly fell forward falling through a towel rack. The next thing he remembered was being helped out by the EMS. His found him floor seizing, full body shaking. He denied recent illness, sick contacts, fever, chills, nausea, vomiting, diarrhea. He denied hx of seizures.? MRI showed multiple small foci of acute border zone infarctions in the right parietal temporal and occipital junction.His labs were WNL. He was started on IV Keppra in the ED. He will be admitted for acute stroke and seizure. Hospital course: patient presented with new onset seizure, fall and noted to have multiple embolic pattern subacute CVA.. Neurology is recommending anti seizure meds and not to drive, GEORGE show no clot and therefore had implantable device to check for AFIB..Medical management with aspirin, statin and blood pressure controll. He advised not drive or operate heavy machinery..Discussed with him, son and at bedside.. Will continue anticoagulation with couamdin until finding of event monitor are known Time Spent with Patient Time attestation: Total time spent providing and/or coordinating discharge services: Discharge coordination time: Greater than 30 minutes Quality: Stroke Does the patient have a stroke diagnosis?: No Physical Exam Vital Signs: Vital Signs: Last Vital Signs Temp 97.7 F 08/21/21 07:37 Pulse 53 08/21/21 07:37 Resp 18 08/21/21 07:37 BP 170/95 H 08/21/21 07:37 Pulse Ox 98 08/21/21 07:37 BMI result Body Mass Index 33.9 DS: Data Data Completed and Pending Labs on day of discharge: Laboratory Results - last 24 hr 08/20/21 08/21/21 08/21/21 17:09 05:54 05:54 WBC 5.6 RBC 4.95 Hgb 14.4 Hct 44.7 MCV 90.3 MCH 29.1 MCHC 32.2 RDW 12.6 Plt Count 151 L MPV 11.4 Absolute Nucleated RBC 0.000 Nucleated RBC % (auto) 0.0 PT 11.5 INR 1.0 Sodium 141 Potassium 4.5 Chloride 107 Carbon Dioxide 27 Anion Gap 12 BUN 16 Creatinine 0.92 Estim Creat Clear Calc 101.2 Estimated GFR > 60 Random Glucose 106 Calcium 9.0 08/21/21 05:54 WBC RBC Hgb Hct MCV MCH MCHC RDW Plt Count MPV Absolute Nucleated RBC Nucleated RBC % (auto) PT 12.3 INR 1.1 Sodium Potassium Chloride Carbon Dioxide Anion Gap BUN Creatinine Estim Creat Clear Calc Estimated GFR Random Glucose Calcium Discharge Plan Discharge Anticipated Discharge Date/Time: 08/21/21 11:52 Patient Disposition: Home, Self-Care Discharge Diagnosis: Embolic CVA Referrals: Ronal Marino MD [Primary Care Provider] - 1 Week Discharge Medications: New levetiracetam 500 mg Tablet 500 mg PO BID Qty: 60 0RF aspirin 81 mg Tablet,Chewable 81 mg PO DAILY Qty: 90 0RF atorvastatin 40 mg Tablet 40 mg PO BEDTIME Qty: 30 0RF warfarin [Jantoven] 5 mg Tablet 5 mg PO DAILY@1800 Qty: 30 0RF warfarin 5 mg tablet 5 mg PO DAILY Qty: 30 0RF Continued tamsulosin [Flomax] 0.4 mg capsule 0.4 mg PO BEDTIME 90 Days Qty: 90 0RF atenolol 50 mg tablet 50 mg PO DAILY 90 Days Qty: 90 0RF Discharge Orders: Discharge Order (Routine); Ordered 08/21/21 Ordered By: Espinoza Castellanos Diet: advance to usual diet Activity on Discharge: As tolerated Stand Alone Forms: Patient Portal Discharge page Care Plan Goals: prevent more stroke in the future Health Concerns: embolic strokes, seizure Plan of Treatment: take aspirin, lipitor, and blood pressure medicaitons as recommended. 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 Assessment: as above
--- NOTE | 2021-08-21 10:17 | P.CONAN_ITS ---
HPI - Anesthesia Eval Consult details Narrative: CVA [facility] Active Problems Active Problems: All Active Problems (Updated 08/20/21 @ 13:43 by Nik Kim MD) Cerebrovascular accident, embolic (Acute) Seizure (Acute) CVA (cerebral vascular accident) (Acute) Obesity due to excess calories (Acute) Elevated fasting blood sugar (Acute) Frequency of urination (Acute) Lipid disorder (Acute) Encounter for general adult medical examination with abnormal findings (Acute) Past Medical History Medical History BPH (benign prostatic hyperplasia) Hypertension, essential Family History Family history of problems with anesthesia: No Surgical History History of Problems with Anesthesia: No Social History Social History Household Members: Spouse Housing: House Alcohol intake: current Alcohol intake frequency: a few times a week Patient Tobacco Use Status: Former Tobacco user Tobacco use type: Cigarette Years Smoked: 30 years ago Use of substances other than those prescribed or required for medical reasons: No Substance Use Type: Marijuana Currently Displaying Signs/Symptoms of Drug Intoxication Withdrawal: No Have you been hit, kicked, punched, or otherwise hurt by someone within the past year? If so, by whom?: No Do you feel safe in your current relationship?: Yes Is there a partner from a previous relationship who is making you feel unsafe now?: No Are you made to feel afraid or neglected: No Advance Directives: No Advance Directives Information Provided: No Do you have thoughts of harming others: None Do you have a plan to hurt others: No Plan Recently lost weight without trying: No Eating poorly because of decreased appetite: No Nutrition Risks: No Nutritional Risk service: No Current occupational status: employed and retired Meds Allergies Allergy/AdvReac Type Severity Reaction Status Date / Time hydrochlorothiazide Allergy Unknown muscle Verified 05/03/21 07:51 stiffness Active Medications: Current Medications Acetaminophen (Acetaminophen 325 Mg Tablet) 650 mg PO Q6H PRN PRN Reason: Pain, Mild (Pain Scale 1-3) Aspirin (Aspirin 81 Mg Tab.Chew) 81 mg PO DAILY [facility] Last Admin: 08/21/21 07:44 Dose: 81 mg Documented by: Atenolol (Atenolol 50 Mg Tablet) 50 mg PO DAILY [facility]; Protocol Last Admin: 08/21/21 07:43 Dose: 50 mg Documented by: Atorvastatin Calcium (Atorvastatin Calcium 40 Mg Tablet) 40 mg PO BEDTIME [facility] Last Admin: 08/20/21 20:52 Dose: 40 mg Documented by: Enoxaparin Sodium (Enoxaparin Sodium 40 Mg/0.4 Ml Syringe) 40 mg SUBCUT Q24H [facility] Last Admin: 08/20/21 14:16 Dose: 40 mg Documented by: Levetiracetam (Levetiracetam 500 Mg Tablet) 500 mg PO BID [facility] Last Admin: 08/21/21 07:43 Dose: 500 mg Documented by: Ondansetron HCl (Ondansetron Hcl 4 Mg/2 Ml Vial) 4 mg IVPUSH Q8H PRN PRN Reason: Nausea and Vomiting Pharmacy Consult (Consult Rx Perform Med Rec) 1 each MISCELLANE ONCE PRN PRN Reason: Consult order Sodium Chloride (0.9 % Sodium Chloride Flush 3 Ml Syringe) 3 ml IVFLUSH QSHIFT [facility] Last Admin: 08/21/21 07:44 Dose: 3 ml Documented by: Tamsulosin HCl (Tamsulosin Hcl 0.4 Mg Capsule) 0.4 mg PO BEDTIME [facility] Last Admin: 08/20/21 20:52 Dose: 0.4 mg Documented by: Warfarin Sodium (Warfarin Sodium 5 Mg Tablet) 5 mg PO DAILY@1800 [facility] Last Admin: 08/20/21 17:52 Dose: 5 mg Documented by: Exam Exam Date and Time: August 21, 2021 1017 Height,Weight and Vital Signs: Height 6 ft Weight 113.398 kg Last Vital Signs Temp 97.7 F 08/21/21 07:37 Pulse 53 08/21/21 07:37 Resp 18 08/21/21 07:37 BP 170/95 H 08/21/21 07:37 Pulse Ox 98 08/21/21 07:37 Pertinent Lab Results Pertinent Lab Results: Laboratory Tests 08/19/21 08/19/21 08/19/21 08:19 08:19 08:19 WBC 8.4 RBC 5.22 Hgb 15.2 Hct 46.2 MCV 88.5 MCH 29.1 MCHC 32.9 RDW 12.7 Plt Count 157 L D MPV 11.0 Immature Gran % (Auto) 0.5 H Neut % (Auto) 82.4 H Lymph % (Auto) 9.8 L [place] % (Auto) 5.8 Eos % (Auto) 1.4 Baso % (Auto) 0.1 Lymph # (Auto) 0.8 L [place] # (Auto) 0.5 Eos # (Auto) 0.1 Baso # (Auto) 0.0 Abs Immat Gran (auto) 0.04 H Absolute Neuts (auto) 6.9 Absolute Nucleated RBC 0.000 Nucleated RBC % (auto) 0.0 PT 11.7 INR 1.0 APTT 25.0 Sodium 140 Potassium 4.2 Chloride 107 Carbon Dioxide 23 Anion Gap 14 BUN 14 Creatinine 1.02 Estim Creat Clear Calc 91.3 Estimated GFR > 60 Random Glucose 185 H Calcium 9.2 Total Bilirubin 0.6 AST 16 ALT 12 Alkaline Phosphatase 52 Troponin I High Sens Total Protein 6.7 Albumin 4.1 Triglycerides Cholesterol LDL Cholesterol, Calc HDL Cholesterol COVID-19 ([facility]) COVID-19 Clin Com 08/19/21 08/19/21 08/20/21 08:19 10:31 06:42 WBC 5.6 RBC 4.85 Hgb 14.2 Hct 43.0 MCV 88.7 MCH 29.3 MCHC 33.0 RDW 12.7 Plt Count 142 L MPV 10.8 Immature Gran % (Auto) 0.4 Neut % (Auto) 58.9 Lymph % (Auto) 28.0 [place] % (Auto) 8.5 Eos % (Auto) 3.7 Baso % (Auto) 0.5 Lymph # (Auto) 1.6 [place] # (Auto) 0.5 Eos # (Auto) 0.2 Baso # (Auto) 0.0 Abs Immat Gran (auto) 0.02 Absolute Neuts (auto) 3.3 Absolute Nucleated RBC 0.000 Nucleated RBC % (auto) 0.0 PT INR APTT Sodium Potassium Chloride Carbon Dioxide Anion Gap BUN Creatinine Estim Creat Clear Calc Estimated GFR Random Glucose Calcium Total Bilirubin AST ALT Alkaline Phosphatase Troponin I High Sens 9.1 Total Protein Albumin Triglycerides Cholesterol LDL Cholesterol, Calc HDL Cholesterol COVID-19 ([facility]) Negative COVID-19 Clin Com See Note 08/20/21 08/20/21 08/20/21 06:42 06:42 17:09 WBC RBC Hgb Hct MCV MCH MCHC RDW Plt Count MPV Immature Gran % (Auto) Neut % (Auto) Lymph % (Auto) [place] % (Auto) Eos % (Auto) Baso % (Auto) Lymph # (Auto) [place] # (Auto) Eos # (Auto) Baso # (Auto) Abs Immat Gran (auto) Absolute Neuts (auto) Absolute Nucleated RBC Nucleated RBC % (auto) PT 11.5 INR 1.0 APTT Sodium 141 Potassium 4.4 Chloride 107 Carbon Dioxide 28 Anion Gap 10 L BUN 13 Creatinine 0.91 Estim Creat Clear Calc 102.4 Estimated GFR > 60 Random Glucose 109 D Calcium 8.7 Total Bilirubin AST ALT Alkaline Phosphatase Troponin I High Sens Total Protein Albumin Triglycerides 102 Cholesterol 198 LDL Cholesterol, Calc 135 HDL Cholesterol 43 COVID-19 ([facility]) COVID-19 [employer] 08/21/21 08/21/21 08/21/21 05:54 05:54 05:54 WBC 5.6 RBC 4.95 Hgb 14.4 Hct 44.7 MCV 90.3 MCH 29.1 MCHC 32.2 RDW 12.6 Plt Count 151 L MPV 11.4 Immature Gran % (Auto) Neut % (Auto) Lymph % (Auto) [place] % (Auto) Eos % (Auto) Baso % (Auto) Lymph # (Auto) [place] # (Auto) Eos # (Auto) Baso # (Auto) Abs Immat Gran (auto) Absolute Neuts (auto) Absolute Nucleated RBC 0.000 Nucleated RBC % (auto) 0.0 PT 12.3 INR 1.1 APTT Sodium 141 Potassium 4.5 Chloride 107 Carbon Dioxide 27 Anion Gap 12 BUN 16 Creatinine 0.92 Estim Creat Clear Calc 101.2 Estimated GFR > 60 Random Glucose 106 Calcium 9.0 Total Bilirubin AST ALT Alkaline Phosphatase Troponin I High Sens Total Protein Albumin Triglycerides Cholesterol LDL Cholesterol, Calc HDL Cholesterol COVID-19 ([facility]) COVID-19 [employer] Com Airway Mallampati Class: III TM Dist: >3cm Neck ROM: Full Partial: Lower Loose/Missing/Broken Teeth: Yes Heart: [id number] Lungs: cta b/l Assessment and Plan Assessment Anesthesia Assessment: Anesthesia Plan Discussed and Chart Reviewed Final Anesthetic Review Family History of Problems with Anesthesia: No History of Problems with Anesthesia: No NPO: Yes ASA Class: III Final Preanesthetic Review: No Changes in Pt Med Stat, Meds/Allgs Chart Reviewed, Consent Obtained/Reviewed and Anes Risks/Benef Reviewed Patient Risk: Intermediate Procedure Risk: Intermediate Assessment/Block/Sedation in SS: Assess/Block/Sedation-SS Anesthetic Plan Anesthetic Plan: MAC: and Agree w/ Assess. and Plan Disposition: Standard PACU
--- NOTE | 2021-08-21 11:00 | CA_ITS ---
Transesophageal Echocardiogram Patient (Last, First, Middle): Penelope Driscoll, Gender: Male Date of : 1955 Age: 66 Procedure Date: 08/21/2021 Procedure Type: Transesophageal Echocardiogram Location: S3E Height: 182.88 cm Weight: 113.4 kg BSA: 2.34 m2 Heart Rate: bpm BP: 162 / 92 mmHg Human Resource Assistant: DEMAR Referring MD: Nik Kim MD Symptoms: Embolic CVA Conclusion: ??? 1. Normal LV systolic function with probably mild LVH with grade 1 diastolic dysfunction 2. Moderately dilated right-sided chambers 3. No intracardiac shunting 4. Trivial aortic regurgitation 5. No intracardiac thrombi or masses or vegetations next 6. Mild atherosclerotic changes noted in the arch and descending thoracic aorta 7. No gross pericardial effusion Findings Procedure Information Consent was obtained prior to the procedure. Pre STACI oral cavity was checked and revealed no overcrowding. The adult 3D probe was passed with no difficulty. Left Ventricle Normal left ventricular size and systolic function. There is mildly increased left ventricular wall thickness. The visually estimated ejection fraction is between 60-65%. Spectral Doppler is indicative of an impaired relaxation filling pattern. E/E prime ratio is <8, consistent with normal filling pressures. Evidence suggests grade I (mild) diastolic dysfunction. Right Ventricle Moderately increased right ventricular cavity size. There is normal right ventricular systolic function. Atria The left atrium is likely dilated. There is no evidence of interatrial shunt by color Doppler and contrast. There is no evidence of a patent foramen ovale. left atrium was identified multiple view. There are no masses or thrombi noted. The left atrial appendage was also identified multiple views and no evidence of clot or masses seen. The left atrial appendage ejection velocity is within normal limits. The left upper, right upper and right lower pulmonary vein drain normally into the left atrium. The right atrium is moderately dilated. There is a prominent eustachian valve. Right atrium was seen in multiple views with no clots or masses seen. IVC and SVC drain normally into the right atrium. Aortic Valve Normal aortic valve structure and function. There is no aortic valve stenosis. There is no evidence of a mass on the aortic valve. There is trace (trivial) aortic valve regurgitation. Mitral Valve Normal mitral valve structure and function. There is trace mitral valve regurgitation. There is no mitral valve stenosis. There is no mass noted on the mitral valve. Pulmonic Valve The pulmonic valve is likely normal. There is trace pulmonic valve regurgitation. Tricuspid Valve Normal tricuspid valve structure. There is mild tricuspid valve regurgitation. The right ventricular systolic pressure is normal. There is no evidence of pulmonary hypertension. Great Vessels All visible segments of the aorta are normal in size. Small plaque is seen in the arch and descending thoracic aorta. The visualized portions of the pulmonary artery and branches are normal. Venous The inferior vena cava is normal in size. Pericardium/Pleural There is no evidence of pericardial effusion. Prior Study Comparison no prior STACI Measurements Mitral Valve MV Pk E: 0.43 MV PK A: 0.62 MV Decel Time: 306.00 E/A: 0.70 E'Lateral: 6.69 E'Medial: 5.56 E/E' Med: 7.80 E/E' Lat: 6.50 PHT: 90.00 MVA PHT: 2.44 Decel [place]: 1.41 Diastolic Function MV Pk E: 0.43 MV Pk A: 0.62 E/A: 0.70 E'Medial: 5.56 E/E' Med: 7.80 E' Laterial: 6.69 E/E' Lat: 6.50 Tricuspid Valve TR Pk [place]: 2.31 TR Pk Grad: 21.00 Updated by Nik Kim on 12:46 PM with Status of Final Nik Kim MD electronically signed on 08/21/2021 12:46:23 PM with status of Final
--- NOTE | 2021-08-21 12:08 | PM.OP ---
Brief Operative Note Date of Service: 08/21/21 Pre-op diagnosis: Embolic CVA Post-op diagnosis: same Procedure: Placement of implantable loop recorder Implants: After obtaining full informed consent patient was in the OR suite after the STACI. Patient was sedated because the STACI. Patient's precordial area was then shaved. The area was then prepped and draped in a sterile fashion. Patient was then given 2% lidocaine with epinephrine intradermally and subcutaneously. A [employer] implantable loop recorder serial number [id number] was then implanted in the subcutaneous space using Seldinger technique. Measured R-wave at 0.41 mV. The wound was then closed with Steri-Strip and pressure bandage applied. Patient tolerated the procedure well Surgeon: Nik Kim MD Anesthesia: local Was an Combatant Diver Officer used for this Procedure?: No Estimated blood loss (mL): 1 Pathology: none sent Condition: stable Disposition: PACU
--- NOTE | 2021-08-21 12:10 | PM.PNCARD ---
Subjective Subjective Date of Service: 08/21/21 Principal diagnosis: Embolic CVA Interval history: No new cardiac symptoms to report. Underwent STACI without any clear source of cardiac emboli. Underwent implantable loop recorder placement which he tolerated well. Denies any new cardiac complaints. Review of Systems Review of Systems Yes all other systems are reviewed and are negative Physical Exam Vital Signs: Last Vital Signs Temp 97.6 F 08/21/21 10:24 Pulse 46 L 08/21/21 10:24 Resp 18 08/21/21 10:24 BP 162/92 H 08/21/21 10:24 Pulse Ox 98 08/21/21 10:24 BMI result Body Mass Index 33.9 Const General: cooperative, comfortable, no acute distress, alert and awake Orientation/consciousness: patient oriented x3 Neck Neck: Yes trachea midline, Yes supple and Yes no JVD Resp Effort & Inspection: normal respiratory effort Auscultation: clear to auscultation bilaterally Cardio Jugular venous distension: no JVD Palpation: normal PMI Rate: regular rate Rhythm: regular rhythm Heart sounds: S1 normal heart sound present, S2 normal heart sound present, no click, no gallops and no murmurs GI Auscultation: normal bowel sounds Neuro General: patient oriented x3 and no focal motor deficits Objective Labs and Meds Result diagrams: 08/21/21 05:54 08/21/21 05:54 Lab results: Laboratory Results - last 24 hr 08/20/21 08/21/21 08/21/21 17:09 05:54 05:54 WBC 5.6 RBC 4.95 Hgb 14.4 Hct 44.7 MCV 90.3 MCH 29.1 MCHC 32.2 RDW 12.6 Plt Count 151 L MPV 11.4 Absolute Nucleated RBC 0.000 Nucleated RBC % (auto) 0.0 PT 11.5 INR 1.0 Sodium 141 Potassium 4.5 Chloride 107 Carbon Dioxide 27 Anion Gap 12 BUN 16 Creatinine 0.92 Estim Creat Clear Calc 101.2 Estimated GFR > 60 Random Glucose 106 Calcium 9.0 08/21/21 05:54 WBC RBC Hgb Hct MCV MCH MCHC RDW Plt Count MPV Absolute Nucleated RBC Nucleated RBC % (auto) PT 12.3 INR 1.1 Sodium Potassium Chloride Carbon Dioxide Anion Gap BUN Creatinine Estim Creat Clear Calc Estimated GFR Random Glucose Calcium Progress Note: A&P Assessment and plan (1) Cerebrovascular accident, embolic: Status: Acute Assessment and Plan: Patient with embolic CVA without any structural abnormality noted on the STACI to suggest any source of emboli from the heart. Continue with warfarin therapy as planned by Neurology. Target INR between 2 and 3. Implantable loop recorder has been placed, will follow clinically. High likelihood of atrial fibrillation, see below (2) Enlarged RV (right ventricle): Status: Acute Assessment and Plan: Patient with right-sided chamber enlargement without any signs or symptoms of heart failure. He has witnessed apnea during anesthesia which a consistent with presence of underlying probably obstructive sleep apnea which also makes him more likely to develop atrial fibrillation. Advise home sleep study. (3) Witnessed episode of apnea: Status: Acute Assessment and Plan: As above. Will follow up in the clinic. Fall Risk Details Current Medications: Current Medications Acetaminophen (Acetaminophen 325 Mg Tablet) 650 mg PO Q6H PRN PRN Reason: Pain, Mild (Pain Scale 1-3) Acetaminophen (Acetaminophen 325 Mg Tablet) 650 mg PO ONCE PRN PRN Reason: Pain, Mild (Pain Scale 1-3) Aspirin (Aspirin 81 Mg Tab.Chew) 81 mg PO DAILY [facility] Last Admin: 08/21/21 07:44 Dose: 81 mg Documented by: Atenolol (Atenolol 50 Mg Tablet) 50 mg PO DAILY [facility]; Protocol Last Admin: 08/21/21 07:43 Dose: 50 mg Documented by: Atorvastatin Calcium (Atorvastatin Calcium 40 Mg Tablet) 40 mg PO BEDTIME [facility] Last Admin: 08/20/21 20:52 Dose: 40 mg Documented by: Enoxaparin Sodium (Enoxaparin Sodium 40 Mg/0.4 Ml Syringe) 40 mg SUBCUT Q24H [facility] Last Admin: 08/20/21 14:16 Dose: 40 mg Documented by: Levetiracetam (Levetiracetam 500 Mg Tablet) 500 mg PO BID [facility] Last Admin: 08/21/21 07:43 Dose: 500 mg Documented by: Ondansetron HCl (Ondansetron Hcl 4 Mg/2 Ml Vial) 4 mg IVPUSH Q8H PRN PRN Reason: Nausea and Vomiting Ondansetron HCl (Ondansetron Hcl 4 Mg/2 Ml Vial) 4 mg IVPUSH ONCE PRN PRN Reason: Nausea and Vomiting Oxycodone HCl (Oxycodone Hcl Immed Release 5 Mg Tablet) 10 mg PO ONCE PRN PRN Reason: Pain, Severe (Pain Scale 7-10) Pharmacy Consult (Consult Rx Perform Med Rec) 1 each MISCELLANE ONCE PRN PRN Reason: Consult order Sodium Chloride (0.9 % Sodium Chloride Flush 3 Ml Syringe) 3 ml IVFLUSH QSHIFT [facility] Last Admin: 08/21/21 07:44 Dose: 3 ml Documented by: Tamsulosin HCl (Tamsulosin Hcl 0.4 Mg Capsule) 0.4 mg PO BEDTIME [facility] Last Admin: 08/20/21 20:52 Dose: 0.4 mg Documented by: Warfarin Sodium (Warfarin Sodium 5 Mg Tablet) 5 mg PO DAILY@1800 [facility] Last Admin: 08/20/21 17:52 Dose: 5 mg Documented by: Time Spent With Patient Time: Total time spent is greater than 50% in coordination of care (as documented) at patient's floor/unit and/or counseling patient: Time with patient: 25 - 35 minutes Progress Note: Quality Stroke Does the patient have a stroke diagnosis?: No Reason for No Anti-thrombotic by Day Two: N/A - Med Ordered Procedures Date of Service Date of Service: 08/21/21
--- NOTE | 2021-08-21 13:32 | MHC.CM.PN ---
Addendum entered by Celsa Bergman 08/21/21 13:49: CHANGE OF DC PLAN PATIENT IS DC TO HOME ON COUMADIN WILL NEED INR DRAWN BY THURSDAY VNA REFERRALS PLACED. THIS NOTE TO BE UPDATED WITH FINAL DC PLAN Original Note: PATIENT IS DC HOME - SELF CARE TO SUPERVISOR [employer] AWARE OF PLAN. IMM 08/19 IN CHART
--- NOTE | 2021-08-21 15:06 | MHC.CM.PN ---
PER CONVERSATION WITH PATIENT'S PCP OFFICE ([phone]) PATIENT CAN COME TO LAB AT PCP LOCATION AND HAVE INR DRAWN. CASE MANAGEMENT STILL ATTEMPTING TO SECURE A VNA FOR THE HOME. IF SUCCESSFUL, PATIENT WILL BE MADE AWARE. RN, AND PATIENT AWARE OF PLAN
== END 2021-08-21 17:45 | disposition home or self-care (01) | DRG 42 ==
LOC: HO.ED 11:00 → HO.EDOVER 12:48 → HO.S3 13:23
PROVIDERS: Family Medicine; Internal Medicine Cardiovascular Disease; Admitting Provider Nurse Practitioner Acute Care; Emergency Provider Emergency Medicine; PCP Internal Medicine; Visit Provider Internal Medicine
PROC: 0JH602Z Insertion of Monitoring Device into Chest Subcutaneous Tissue and Fascia, Open Approach (ICD-10-PCS; CPT 93312; principal; 2021-08-21 11:00)
PROC: 0JH602Z Insertion of Monitoring Device into Chest Subcutaneous Tissue and Fascia, Open Approach (ICD-10-PCS; CPT 33285; 2021-08-21 11:00)
DX: I63.49 Cerebral infarction due to embolism of other cerebral artery (principal); R56.9 Unspecified convulsions; N40.0 Benign prostatic hyperplasia without lower urinary tract symptoms; R29.700 NIHSS score 0; Z20.822 Contact with and (suspected) exposure to COVID-19; Z87.891 Personal history of nicotine dependence; Z79.01 Long term (current) use of anticoagulants; Z79.82 Long term (current) use of aspirin; Z79.899 Other long term (current) drug therapy
CPT/HCPCS: 36415; 70450; 70496; 70498; 70551; 71045; 72125; 80048; 80053; 80061; 84484; 85025; 85027; 85610; 85730; 87635; 93005; 93312; 96374; 97161; 97165; 99285; C1764; J1650; J1953; Q9967

== ENCOUNTER 2021-08-22 12:01 | Outpatient (REF) | payer MEDICARE, SELFPAY ==
[2021-08-22 14:13] LABS: INTERNATIONAL NORM RATIO 1.1 (0.9-1.1); Prothrombin Time 12.2 SEC (9.9-13.0)
== END 2021-08-22 12:02 | disposition home or self-care (01) ==
LOC: HO.HMGCLDS 12:01
PROVIDERS: Visit Provider Internal Medicine
DX: I63.9 Cerebral infarction, unspecified (principal)
CPT/HCPCS: 36415; 85610

== ENCOUNTER → 2021-09-24 14:23 | Outpatient (BNVA) | payer MEDICARE, SELFPAY | PROVIDERS: PCP Internal Medicine; Referring Provider Internal Medicine; Visit Provider Nurse Practitioner Family | DX: Z45.09 Encounter for adjustment and management of other cardiac device (principal); I51.7 Cardiomegaly; I10 Essential (primary) hypertension; E78.9 Disorder of lipoprotein metabolism, unspecified; E66.09 Other obesity due to excess calories; R56.9 Unspecified convulsions; Z86.73 Personal history of transient ischemic attack (TIA), and cerebral infarction without residual deficits; Z68.34 Body mass index [BMI] 34.0-34.9, adult | CPT/HCPCS: 99212 ==

== ENCOUNTER 2021-09-27 14:08 | Outpatient (REF) | payer MEDICARE, SELFPAY ==
[2021-09-27 16:50] LABS: INTERNATIONAL NORM RATIO 1.2 (0.9-1.1); Prothrombin Time 13.1 SEC (9.9-13.0)
== END 2021-09-27 14:09 | disposition home or self-care (01) ==
LOC: HO.HMGCLDS 14:08
PROVIDERS: PCP Internal Medicine; Visit Provider Internal Medicine
DX: I63.9 Cerebral infarction, unspecified (principal); Z79.01 Long term (current) use of anticoagulants
CPT/HCPCS: 36415; 85610

== ENCOUNTER → 2021-10-03 12:59 | Outpatient (BNVA) | payer MEDICARE, SELFPAY | PROVIDERS: PCP Internal Medicine; Visit Provider Internal Medicine | DX: I63.9 Cerebral infarction, unspecified (principal); Z79.01 Long term (current) use of anticoagulants; Z51.81 Encounter for therapeutic drug level monitoring | CPT/HCPCS: 85610; 99202 ==

== ENCOUNTER → 2021-10-07 13:22 | Outpatient (BNVA) | payer MEDICARE, SELFPAY | PROVIDERS: PCP Internal Medicine; Visit Provider Internal Medicine | DX: I63.9 Cerebral infarction, unspecified (principal); Z79.01 Long term (current) use of anticoagulants; Z51.81 Encounter for therapeutic drug level monitoring | CPT/HCPCS: 85610; 99211 ==

== ENCOUNTER → 2021-10-10 08:45 | Outpatient (BNVA) | payer MEDICARE, SELFPAY | PROVIDERS: PCP Internal Medicine; Visit Provider Internal Medicine | DX: I63.9 Cerebral infarction, unspecified (principal); Z79.01 Long term (current) use of anticoagulants; Z51.81 Encounter for therapeutic drug level monitoring | CPT/HCPCS: 85610; 99211 ==

== ENCOUNTER → 2021-10-15 08:44 | Outpatient (BNVA) | payer MEDICARE, SELFPAY | PROVIDERS: PCP Internal Medicine; Visit Provider Internal Medicine | DX: I63.9 Cerebral infarction, unspecified (principal); Z79.01 Long term (current) use of anticoagulants; Z51.81 Encounter for therapeutic drug level monitoring | CPT/HCPCS: 85610; 99211 ==

== ENCOUNTER → 2021-10-17 10:51 | Outpatient (REF) | payer MEDICARE, SELFPAY | LOC: HO.SL 10:51 | PROVIDERS: PCP Internal Medicine; Visit Provider Internal Medicine Cardiovascular Disease | DX: R06.81 Apnea, not elsewhere classified (principal); R06.83 Snoring | CPT/HCPCS: 95806 ==

== ENCOUNTER → 2021-10-22 08:56 | Outpatient (BNVA) | payer MEDICARE, SELFPAY | PROVIDERS: PCP Internal Medicine; Visit Provider Internal Medicine | DX: I63.9 Cerebral infarction, unspecified (principal); Z79.01 Long term (current) use of anticoagulants; Z51.81 Encounter for therapeutic drug level monitoring | CPT/HCPCS: 85610; 99211 ==

== ENCOUNTER → 2021-10-29 09:37 | Outpatient (BNVA) | payer MEDICARE, SELFPAY | PROVIDERS: PCP Internal Medicine; Visit Provider Internal Medicine | DX: I63.9 Cerebral infarction, unspecified (principal); Z79.01 Long term (current) use of anticoagulants; Z51.81 Encounter for therapeutic drug level monitoring | CPT/HCPCS: 85610; 99211 ==

== ENCOUNTER → 2021-11-08 09:00 | Outpatient (BNVA) | payer MEDICARE, SELFPAY | PROVIDERS: PCP Internal Medicine; Visit Provider Internal Medicine | DX: I63.9 Cerebral infarction, unspecified (principal); Z79.01 Long term (current) use of anticoagulants; Z51.81 Encounter for therapeutic drug level monitoring | CPT/HCPCS: 85610; 99211 ==

== ENCOUNTER → 2021-11-15 09:15 | Outpatient (BNVA) | payer MEDICARE, SELFPAY | PROVIDERS: PCP Internal Medicine; Visit Provider Internal Medicine | DX: I63.9 Cerebral infarction, unspecified (principal); Z79.01 Long term (current) use of anticoagulants; Z51.81 Encounter for therapeutic drug level monitoring | CPT/HCPCS: 85610; 99211 ==

== ENCOUNTER → 2021-11-22 09:05 | Outpatient (BNVA) | payer MEDICARE, SELFPAY | PROVIDERS: PCP Internal Medicine; Visit Provider Internal Medicine | DX: I63.9 Cerebral infarction, unspecified (principal); Z79.01 Long term (current) use of anticoagulants; Z51.81 Encounter for therapeutic drug level monitoring | CPT/HCPCS: 85610; 99211 ==

== ENCOUNTER → 2021-12-02 09:02 | Outpatient (BNVA) | payer MEDICARE, SELFPAY | PROVIDERS: PCP Internal Medicine; Visit Provider Internal Medicine | DX: I63.9 Cerebral infarction, unspecified (principal); Z79.01 Long term (current) use of anticoagulants; Z51.81 Encounter for therapeutic drug level monitoring | CPT/HCPCS: 85610; 99211 ==

== ENCOUNTER → 2021-12-17 09:00 | Outpatient (BNVA) | payer MEDICARE, SELFPAY | PROVIDERS: PCP Internal Medicine; Visit Provider Internal Medicine | DX: Z86.73 Personal history of transient ischemic attack (TIA), and cerebral infarction without residual deficits (principal); Z51.81 Encounter for therapeutic drug level monitoring; Z79.01 Long term (current) use of anticoagulants | CPT/HCPCS: 85610; 99211 ==

== ENCOUNTER → 2022-01-07 09:01 | Outpatient (BNVA) | payer MEDICARE, SELFPAY | PROVIDERS: PCP Internal Medicine; Visit Provider Internal Medicine | DX: I63.9 Cerebral infarction, unspecified (principal); Z79.01 Long term (current) use of anticoagulants; Z51.81 Encounter for therapeutic drug level monitoring | CPT/HCPCS: 85610; 99211 ==

== ENCOUNTER → 2022-01-28 09:16 | Outpatient (BNVA) | payer MEDICARE, SELFPAY | PROVIDERS: PCP Internal Medicine; Visit Provider Internal Medicine | DX: I63.9 Cerebral infarction, unspecified (principal); Z79.01 Long term (current) use of anticoagulants; Z51.81 Encounter for therapeutic drug level monitoring | CPT/HCPCS: 85610; 99211 ==

== ENCOUNTER → 2022-02-18 09:11 | Outpatient (BNVA) | payer MEDICARE, SELFPAY | PROVIDERS: PCP Internal Medicine; Visit Provider Internal Medicine | DX: I63.9 Cerebral infarction, unspecified (principal); Z79.01 Long term (current) use of anticoagulants; Z51.81 Encounter for therapeutic drug level monitoring | CPT/HCPCS: 85610; 99211 ==

== ENCOUNTER → 2022-03-18 09:17 | Outpatient (BNVA) | payer MEDICARE, SELFPAY | PROVIDERS: PCP Internal Medicine; Visit Provider Internal Medicine | DX: I63.9 Cerebral infarction, unspecified (principal); Z79.01 Long term (current) use of anticoagulants; Z51.81 Encounter for therapeutic drug level monitoring | CPT/HCPCS: 85610; 99211 ==

== ENCOUNTER → 2022-03-25 09:34 | Outpatient (BNVA) | payer MEDICARE, SELFPAY | PROVIDERS: PCP Internal Medicine; Referring Provider Internal Medicine; Visit Provider Internal Medicine Cardiovascular Disease | DX: I63.9 Cerebral infarction, unspecified (principal); I10 Essential (primary) hypertension | CPT/HCPCS: 99212 ==

== ENCOUNTER → 2022-04-15 09:27 | Outpatient (BNVA) | payer MEDICARE, SELFPAY | PROVIDERS: PCP Internal Medicine; Visit Provider Internal Medicine | DX: I63.9 Cerebral infarction, unspecified (principal); Z79.01 Long term (current) use of anticoagulants; Z51.81 Encounter for therapeutic drug level monitoring | CPT/HCPCS: 85610; 99211 ==

== ENCOUNTER 2022-04-16 08:49 | Outpatient (REF) | payer MEDICARE, SELFPAY ==
[2022-04-16 12:03] LABS: MANUAL DIFF FLAG NO
[2022-04-16 12:05] LABS: Basophils Absolute Auto 0.1 X10*3/uL (0.0-0.2); Basophils Percent Auto 0.8 % (0-2); Eosinophils Absolute Auto 0.3 X10*3/uL (0.0-0.4); Eosinophils Percent Auto 4.8 % (0-4); Hematocrit 47.4 % (42.0-52.0); Hemoglobin 16.2 g/dl (14.0-18.0); Imm Gran Abs Auto 0.01 X10*3/uL (0.00-0.03); Imm Gran Pct Auto 0.2 % (0.0-0.4); Lymphocytes Absolute Auto 2.1 X10*3/uL (1.2-4.9); Lymphocytes Percent Auto 33.2 % (20-40); Mean Corpuscular HGB Conc 34.2 g/dl (31.0-36.0); Mean Corpuscular Hemoglobin 30.2 pg (27.0-33.0); Mean Corpuscular Volume 88.4 fL (80.0-98.0); Mean Platelet Volume 11.8 fL (9.4-12.4); Monocytes Absolute Auto 0.6 X10*3/uL (0.1-1.2); Monocytes Percent Auto 9.8 % (2-11); Neutrophils Absolute Auto 3.2 x10*3/uL (2.0-8.3); Neutrophils Percent Auto 51.2 % (45-73); Platelet Count 183 X10*3/uL (160-400); Red Blood Count 5.36 X10*6/uL (4.60-5.80); Red Cell Distribution Width 12.7 % (11.0-16.0); White Blood Count 6.2 X10*3/uL (4.8-10.8)
[2022-04-16 12:28] LABS: Alanine Aminotransferase 36 U/L (0-40); Albumin Level 4.2 g/dL (3.5-5.0); Alkaline Phosphatase 60 U/L (39-117); Anion Gap 17 (12-20); Aspartate Amino Transferase 26 U/L (5-37); Bilirubin Total 0.9 mg/dL (0.0-1.0); Blood Urea Nitrogen 19 mg/dL (9-16); Calcium 9.3 mg/dL (8.4-10.2); Carbon Dioxide 23 mmol/L (22-29); Chloride 105 mmol/L (96-108); Estimated Glomerular Filt Rate > 60; Glucose Random 117 mg/dL (60-115); Potassium 4.6 mmol/L (3.3-5.1); Sodium 140 mmol/L (135-145); Total Protein 6.7 g/dL (6.5-8.0)
[2022-04-16 12:39] LABS: Estimated Average Glucose 123 mg/dL; Hemoglobin A1c % 5.9 %
[2022-04-16 12:51] LABS: Prostate Specific Antigen 0.63 ng/mL (<0.05-4.0)
[2022-04-17 17:22] LABS: LDL Cholesterol Direct 99 mg/dL (<100)
== END 2022-04-16 08:50 | disposition home or self-care (01) ==
LOC: HO.HMGCLDS 08:49
PROVIDERS: PCP Internal Medicine; Visit Provider Internal Medicine
DX: Z00.01 Encounter for general adult medical examination with abnormal findings (principal); Z12.5 Encounter for screening for malignant neoplasm of prostate; E66.09 Other obesity due to excess calories; E78.9 Disorder of lipoprotein metabolism, unspecified; I10 Essential (primary) hypertension; R56.9 Unspecified convulsions; R73.01 Impaired fasting glucose; R35.0 Frequency of micturition; Z79.01 Long term (current) use of anticoagulants
CPT/HCPCS: 36415; 80053; 83036; 83721; 84153; 85025

== ENCOUNTER → 2022-05-13 09:28 | Outpatient (BNVA) | payer MEDICARE, SELFPAY | PROVIDERS: PCP Internal Medicine; Visit Provider Internal Medicine | DX: I63.9 Cerebral infarction, unspecified (principal); Z79.01 Long term (current) use of anticoagulants; Z51.81 Encounter for therapeutic drug level monitoring | CPT/HCPCS: 85610; 99211 ==

== ENCOUNTER → 2022-06-18 09:25 | Outpatient (BNVA) | payer MEDICARE, SELFPAY | PROVIDERS: PCP Internal Medicine; Visit Provider Internal Medicine | DX: I63.9 Cerebral infarction, unspecified (principal); Z79.01 Long term (current) use of anticoagulants; Z51.81 Encounter for therapeutic drug level monitoring | CPT/HCPCS: 85610; 99211 ==

== ENCOUNTER → 2022-07-23 09:26 | Outpatient (BNVA) | payer MEDICARE, SELFPAY | PROVIDERS: PCP Internal Medicine; Visit Provider Internal Medicine | DX: I63.9 Cerebral infarction, unspecified (principal); Z79.01 Long term (current) use of anticoagulants; Z51.81 Encounter for therapeutic drug level monitoring | CPT/HCPCS: 85610; 99211 ==

== ENCOUNTER → 2022-07-29 13:21 | Outpatient (BNVA) | payer MEDICARE, SELFPAY | PROVIDERS: PCP Internal Medicine; Visit Provider Internal Medicine | DX: Z86.010 Personal history of colon polyps (principal); Z86.73 Personal history of transient ischemic attack (TIA), and cerebral infarction without residual deficits; Z79.01 Long term (current) use of anticoagulants; Z80.0 Family history of malignant neoplasm of digestive organs | CPT/HCPCS: 99202 ==

== ENCOUNTER → 2022-08-27 09:22 | Outpatient (BNVA) | payer MEDICARE, SELFPAY | PROVIDERS: PCP Internal Medicine; Visit Provider Internal Medicine | DX: I63.9 Cerebral infarction, unspecified (principal); Z79.01 Long term (current) use of anticoagulants; Z51.81 Encounter for therapeutic drug level monitoring | CPT/HCPCS: 85610; 99211 ==

== ENCOUNTER → 2022-09-15 11:08 | Outpatient (BNVA) | payer MEDICARE, SELFPAY | PROVIDERS: PCP Internal Medicine; Visit Provider Internal Medicine | DX: I63.9 Cerebral infarction, unspecified (principal); Z79.01 Long term (current) use of anticoagulants; Z51.81 Encounter for therapeutic drug level monitoring | CPT/HCPCS: 85610; 99211 ==

== ENCOUNTER → 2022-09-26 09:08 | Outpatient (BNVA) | payer MEDICARE, SELFPAY | PROVIDERS: PCP Internal Medicine; Visit Provider Internal Medicine | DX: Z86.73 Personal history of transient ischemic attack (TIA), and cerebral infarction without residual deficits (principal); Z79.01 Long term (current) use of anticoagulants; Z51.81 Encounter for therapeutic drug level monitoring | CPT/HCPCS: 85610; 99211 ==

== ENCOUNTER → 2022-09-30 10:27 | Outpatient (BNVA) | payer MEDICARE, SELFPAY | PROVIDERS: PCP Internal Medicine; Referring Provider Internal Medicine; Visit Provider Internal Medicine Cardiovascular Disease | DX: Z86.73 Personal history of transient ischemic attack (TIA), and cerebral infarction without residual deficits (principal); I10 Essential (primary) hypertension; Z79.01 Long term (current) use of anticoagulants | CPT/HCPCS: 93005; 99212 ==

== ENCOUNTER 2022-10-10 11:51 | Outpatient (REF) | payer MEDICARE, SELFPAY ==
[2022-10-10 11:57] VITALS: BMI 33.9
[2022-10-10 11:59] VITALS: BP 170/94; PULSE 58; RESP 16; TEMP 36.6; O2SAT 95
[2022-10-10 12:47] VITALS: BP 186/93; PULSE 54; RESP 16; O2SAT 96
--- NOTE | 2022-10-10 13:04 | P.BOP_ITS ---
Brief Operative Note Date of Service: 10/10/22 Pre-op diagnosis: Implantable loop recorder in place Procedure: Removal of implantable loop recorder Implants: After obtaining consent patient was brought to the minor surgery suite. Patient was then laid on the operating table in supine position. The precordial area was then prepped and draped in sterile fashion. Patient was then given 2% lidocaine with epinephrine intradermally and subcutaneously. A small incision was then made over the head of the implantable loop recorder. The implantable loop recorder was then removed with the use of Dulce forceps. The wound was then closed with Steri-Strips. Pressure dressing was then applied in a sterile fashion. Surgeon: Nik Kim MD Anesthesia: local Was an Natural Resources Engineer used for this Procedure?: No Estimated blood loss (mL): 1 Pathology: none sent Condition: stable Disposition: same day
== END 2022-10-10 11:52 | disposition home or self-care (01) ==
LOC: HO.MS 11:51
PROVIDERS: PCP Internal Medicine; Visit Provider Internal Medicine Cardiovascular Disease
PROC: (CPT 33286; principal; 2022-10-10 12:00)
DX: Z95.818 Presence of other cardiac implants and grafts (principal)
CPT/HCPCS: 33286

== ENCOUNTER → 2022-10-17 11:56 | Outpatient (BNVA) | payer MEDICARE, SELFPAY | PROVIDERS: PCP Internal Medicine; Visit Provider Nurse Practitioner Family | DX: Z51.89 Encounter for other specified aftercare (principal); I10 Essential (primary) hypertension; Z79.01 Long term (current) use of anticoagulants; Z86.73 Personal history of transient ischemic attack (TIA), and cerebral infarction without residual deficits | CPT/HCPCS: 99212 ==

== ENCOUNTER → 2022-10-30 09:32 | Outpatient (BNVA) | payer MEDICARE, SELFPAY | PROVIDERS: PCP Internal Medicine; Visit Provider Internal Medicine | DX: Z86.73 Personal history of transient ischemic attack (TIA), and cerebral infarction without residual deficits (principal); Z79.01 Long term (current) use of anticoagulants; Z51.81 Encounter for therapeutic drug level monitoring | CPT/HCPCS: 85610; 99211 ==

== ENCOUNTER → 2022-12-04 09:28 | Outpatient (BNVA) | payer MEDICARE, SELFPAY | PROVIDERS: PCP Internal Medicine; Visit Provider Internal Medicine | DX: Z86.73 Personal history of transient ischemic attack (TIA), and cerebral infarction without residual deficits (principal); Z79.01 Long term (current) use of anticoagulants; Z51.81 Encounter for therapeutic drug level monitoring | CPT/HCPCS: 85610; 99211 ==

== ENCOUNTER → 2022-12-12 09:53 | Outpatient (BNVA) | payer MEDICARE, SELFPAY | PROVIDERS: PCP Internal Medicine; Visit Provider Internal Medicine | DX: Z86.73 Personal history of transient ischemic attack (TIA), and cerebral infarction without residual deficits (principal); Z79.01 Long term (current) use of anticoagulants; Z51.81 Encounter for therapeutic drug level monitoring | CPT/HCPCS: 85610; 99211 ==

== ENCOUNTER 2022-12-18 10:31 | Day surgery (SDC) | payer MEDICARE, SELFPAY ==
[2022-12-15 12:06] VITALS: BMI 34.7
[2022-12-18 11:26] VITALS: BP 180/96; PULSE 67; RESP 16; TEMP 36.7; O2SAT 96; BMI 33.2
--- NOTE | 2022-12-18 12:03 | PC.NURSE ---
Pt & INR reviewed by anesthesia Dr Gilbert & Dr Ion alva to proceed.
--- NOTE | 2022-12-18 12:03 | HO.ANESPROP2 ---
HPI - Anesthesia Eval Consult details Narrative: for upper endo plus colon screen PMFSH Active Problems Active Problems: All Active Problems (Updated 10/17/22 @ 12:05 by SIRISHA Mcdaniels) Visit for wound check (Acute) Family history of stomach cancer (Acute) Colon cancer screening (Acute) Current use of anticoagulant therapy (Acute) Warfarin anticoagulation (Acute) CVA (cerebral vascular accident) (Acute) Hypertension, essential (Acute) On warfarin therapy (Acute) Seizures (Acute) Uncontrolled hypertension (Acute) Hospital discharge follow-up (Acute) Witnessed episode of apnea (Acute) Enlarged RV (right ventricle) (Acute) Cerebrovascular accident, embolic (Acute) Obesity due to excess calories (Acute) Elevated fasting blood sugar (Acute) Frequency of urination (Acute) Lipid disorder (Acute) Encounter for general adult medical examination with abnormal findings (Acute) Past Medical History Medical History BPH (benign prostatic hyperplasia) CVA (cerebral vascular accident) Hypertension, essential Family History Family History Father Stomach cancer Paternal Grandfather Stomach cancer Family history of problems with anesthesia: No Surgical History Surgical History History of total right knee replacement Hx of colonoscopy History of Problems with Anesthesia: No Social History Social History Household Members: Spouse Housing: House Alcohol intake: current Alcohol intake frequency: a few times a week Patient Tobacco Use Status: Former Tobacco user Quit Date: 1999 Tobacco use type: Cigarette Years Smoked: 30 +/- e-Cigarette/Vaping Use: Never Used Use of substances other than those prescribed or required for medical reasons: No Substance Use Type: Marijuana Advance Directives: No Advance Directives Information Provided: Yes service: No Current occupational status: employed and retired 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 Current occupational exposures/hazards: No Cognitive needs: No Hearing needs: No Vision needs: No Meds Allergies Allergy/AdvReac Type Severity Reaction Status Date / Time hydrochlorothiazide Allergy Unknown muscle Verified 12/12/22 10:11 stiffness Home Medications Medication Instructions Recorded Confirmed Last Taken Type chlorhexidine gluconate 0.12 % ml PO 09/26/22 12/12/22 Unknown History mouthwash Exam Exam Date and Time: December 18, 2022 1203 Height,Weight and Vital Signs: Height 6 ft Weight 111.13 kg Last Vital Signs Temp 98.1 F 12/18/22 11:26 Pulse 67 12/18/22 11:26 Resp 16 12/18/22 11:26 BP 180/96 H 12/18/22 11:26 Pulse Ox 96 12/18/22 11:26 O2 Del Method Room Air 12/18/22 11:26 Pertinent Lab Results Pertinent Lab Results: Laboratory Tests 12/18/22 11:30 PT 13.5 H INR 1.2 H Airway Mallampati Class: II TM Dist: >3cm Neck ROM: Full Heart: rrr Lungs: cta Assessment and Plan Assessment Anesthesia Assessment: Anesthesia Plan Discussed and Chart Reviewed Final Anesthetic Review Family History of Problems with Anesthesia: No History of Problems with Anesthesia: No NPO: Yes ASA Class: III Final Preanesthetic Review: No Changes in Pt Med Stat, Meds/Allgs Chart Reviewed, Consent Obtained/Reviewed and Anes Risks/Benef Reviewed Patient Risk: Intermediate Procedure Risk: Low Anesthetic Plan Anesthetic Plan: MAC: Disposition: Standard PACU
--- NOTE | 2022-12-18 12:26 | MHC.SHP ---
Pre-Procedural Eval Section A Date of Service: 12/18/22 Section B Chief Complaint: fam hx of gastric ca, personal hx of polyps Details of Present Illness: PMH: BPH (benign prostatic hyperplasia) CVA (cerebral vascular accident) Hypertension, essential Surgical History History of total right knee replacement Hx of colonoscopy Family History Father Stomach cancer Paternal Grandfather Stomach cancer Present Medications: see Short Stay Collaborative assessment Allergies: Allergies Allergy/AdvReac Type Severity Reaction Status Date / Time hydrochlorothiazide Allergy Unknown muscle Verified 12/12/22 10:11 stiffness Review of Systems Review of Systems Comment: 10 point ROS negative Exam Exam Comment: Gen appear: No acute distress HEENT: no icterus Chest: No overt resp distress Abd: soft, nontender, nondistended Psych: Stable affect, answering questions appropriately Neuro: A/Ox3 noted to move all extremities spontaneously Ext: no peripheral edema Plan Diagnosis/Plan: Unchanged I have reviewed the history and physical and performed a pertinent physical examination on my patient. No changes have occurred unless specified. Time Spent With Patient Time: Total time managing care of this patient today ____ minutes.
--- NOTE | 2022-12-18 12:27 | W.PM.OPN ---
Operative Note Operative Note Date of Service: 12/18/22 Narrative: Procedure:?Esophagogastroduodenoscopy and colonoscopy Endoscopist:?Jasmin Lemon MD Indication:?Fam hx of gastric ca, personal hx of polyps Anesthesia Provider:?Dr Susana Ledezma Anesthesia Type:?MAC Instrument:?Olympus GIF-H190, PCF-190L EGD Procedure:?? The procedure, indications, preparation and potential complications were reviewed with the patient, who indicated understanding and gave written informed consent to proceed. A physical exam was performed. The endoscope was introduced through the mouth, and advanced to the second part of duodenum. The mucosa was carefully examined on slow withdrawal of the endoscope. The patient tolerated the procedure well and there were no immediate complications. EGD Findings:? Esophagus:? Normal mucosa noted in the entire esophagus. Small hiatal hernia with Z line at 42 cm and the diaphragmatic pinch at 45 cm. Stomach:? Normal gastric mucosa. Retroflexion performed in the fundus showed Hill grade II hernia. No obvious mucosal abnormality was noted. Due to family hx, mapping biopsies per Josey protocol were obtained. Duodenum:? Normal duodenal mucosa to the extent visualised. Colonoscopy Procedure:? The patient was then turned for the colonoscopy. A digital rectal exam was performed which was normal.? A distal attachment cap was affixed to the tip of the scope and the colonoscope was then inserted through the anus and advanced through the colon to the cecum at 75 cm and terminal ileum. Appendiceal orifice and ileocecal valve were identified. Mucosa was carefully examined under high definition white light as the instrument was slowly withdrawn in a retrograde panoramic fashion. Retroflexion was performed in rectum. The procedure was not difficult. There were no immediate obvious complications. The quality of the prep was BBPS: 3+2+3 = adequate Withdrawal time: 15 minutes Limitations: No limitation. Findings: Mucosa: Normal mucosa to cecum and terminal ileum. Protruding lesions: 4 sessile polyp of size 2-5 mm in the cecum. Cold snare polypectomy was performed. The polyps were completely removed and retrieved. 1 semi-pedunculated polyp of size 5 mm in the cecum. Hot snare polypectomy was performed. The polyp was completely removed and retrieved. Medium internal hemorrhoids without stigmata of recent bleeding. Impression: 1. Normal esophagus 2. Hiatal hernia 3. Normal stomach (biopsy) 4. Normal duodenum 5. Total of 5 polyps removed from cecum 6. Internal hemorrhoids Recommendations:?? Repeat colonoscopy in 3 years if at least 3 polyps are adenomas. No further EGD for gastric ca screening recommended if this index EGD biopsies do not show any gastric intestinal metaplasia/dysplasia.
[2022-12-18 13:41] VITALS: BP 134/72; PULSE 71; RESP 16; TEMP 36.5; O2SAT 96
[2022-12-18 13:59] VITALS: BP 121/60; PULSE 65; RESP 18; TEMP 36.5; O2SAT 96
== END 2022-12-18 14:36 | disposition home or self-care (01) ==
PROVIDERS: PCP Internal Medicine; Visit Provider Internal Medicine
PROC: (CPT 45385; principal; 2022-12-18 12:00)
DX: Z12.11 Encounter for screening for malignant neoplasm of colon (principal); D12.0 Benign neoplasm of cecum; K64.8 Other hemorrhoids; Z86.010 Personal history of colon polyps; K44.9 Diaphragmatic hernia without obstruction or gangrene; A04.8 Other specified bacterial intestinal infections; Z80.0 Family history of malignant neoplasm of digestive organs; I10 Essential (primary) hypertension; Z86.73 Personal history of transient ischemic attack (TIA), and cerebral infarction without residual deficits; Z79.01 Long term (current) use of anticoagulants
CPT/HCPCS: 45385; 43239; 36415; 85610; 88305; 88342; J2250

== ENCOUNTER 2022-12-25 09:13 | Outpatient (AMB) | payer MEDICARE, SELFPAY ==
[2022-12-25 09:43] LABS: Prothrombin Time Whole Bld POC 25.3 sec (11.1-13.5); ~PT, ~INR - Anti Coag Clinic 2.1 (0.9-1.1)
--- NOTE | 2022-12-25 09:44 | MHC.OFFVISCO ---
Intake Intake Visit Reasons: Anticoagulation Allergies hydrochlorothiazide Allergy (Unknown, Verified 12/25/22 09:36) muscle stiffness Medication List - Last Reconciled 12/25/22 by Aleah Trevino RN atenolol 50 mg PO DAILY 90 days atorvastatin 40 mg PO BEDTIME chlorhexidine gluconate 0.12% mL PO warfarin See Protocol one to two tablets based on INR level PO daily; dosing to be adjusted as instructed by Anticoagulation Clinic Nursing Note INR: 2.1- in therapeutic range Medications and supplements reviewed- no changes No changes in health, diet, medications, or supplements, Denies any signs and symptoms of bleeding or bruising or clotting. Bleeding, bruising, clotting discussed Nutritional guidance given Dose: 7.5mg x 6, 10mg x 1 F/U INR: pt ref earlier appt than 4 weeks Patient verbalizes understanding of instructions given pt s/p colonoscopy with 5 day hold of warfarin without lovenox bridge, restarted warfarin 12/19/22 Anti-Coag Initial Assessment Social Hx Patient Tobacco Use Status: Former Tobacco user Quit Date: 1999 Tobacco use type: Cigarette alcohol intake: current Alcohol intake frequency: a few times a week Cardiovascular Hx: HTN and Other (enlarged right ventricle) Blood Disorder Hx: Hyperlipidemia Hx: Prostate and Other (urinary frequency) Neurological Hx: Epilepsy/Seizures and Stroke/TIA Cancer HX: No Psych. Illness/Depression: No Coding Level of Care Code Est Patient Level 1 Diagnoses Current use of anticoagulant therapy Z79.01 Assessment & Plan Assessment & Plan (1) Current use of anticoagulant therapy: Code(s): Z79.01 - terminal carman (current) use of anticoagulants Category: Medical
== END 2022-12-25 09:50 | disposition home or self-care (01) ==
LOC: HO.ACS 09:13
PROVIDERS: PCP Internal Medicine; Visit Provider Internal Medicine
DX: Z79.01 Long term (current) use of anticoagulants (principal)

== ENCOUNTER → 2022-12-25 09:13 | Outpatient (BNVA) | payer MEDICARE, SELFPAY | PROVIDERS: PCP Internal Medicine; Visit Provider Internal Medicine | DX: Z86.73 Personal history of transient ischemic attack (TIA), and cerebral infarction without residual deficits (principal); Z79.01 Long term (current) use of anticoagulants; Z51.81 Encounter for therapeutic drug level monitoring | CPT/HCPCS: 85610; 99211 ==

== ENCOUNTER 2023-01-07 10:56 | Outpatient (AMB) | payer MEDICARE, SELFPAY ==
--- NOTE | 2023-01-07 11:02 | A.OFFVIS_ITS ---
Intake Vital Signs 01/07/23 11:05 Height 6 ft Weight 246 lb 14.684 oz BMI 33.5 BP 149/71 H Blood Pressure Location Lt brachial Position Sitting Pulse 57 Intake Visit Reasons: s/P [place]; Dr Lemon Intake Note: Penelope presents in the office as a follow up for his procedures. CC: He has a soreness in the back but he states that it is not related to GI. Other than that he is feeling okay. Psychiatric Technician Required: No Allergies hydrochlorothiazide Allergy (Unknown, Verified 12/25/22 09:36) muscle stiffness HPI HPI Comments History of Present Illness Details 67y.o M with personal hx of polyps who is here to discuss repeat colonoscopy. 07/29/22: Patient currently does not have any gastrointestinal symptoms to include abdominal pain, nausea, vomiting, changes in bowel habits, blood in stool. Has occasional heartburn which is manageable by [id number] antacids. Last colonoscopy 2014 probably at [facility] and did not have a polyp at that time. But did have a polyp prior to this. Fam hx pertinent for some sort of abdominal cancer, possibly stomach cancer but patient is not sure (father diagnosed at age 55y.o - lived for 20y after resection). Thinks grandfather had stomach cancer as well. Patient has never had an upper endoscopy. 12/18/22: EGD/colo: EGD Findings:? * Esophagus:? Normal mucosa noted in the entire esophagus. Small hiatal hernia with Z line at 42 cm and the diaphragmatic pinch at 45 cm. * Stomach:? Normal gastric mucosa. Retroflexion performed in the fundus showed Hill grade II hernia. No obvious mucosal abnormality was noted. Due to family hx, mapping biopsies per Josey protocol were obtained. * Duodenum:? Normal duodenal mucosa to the extent visualised. Colonoscopy Findings: Mucosa: Normal mucosa to cecum and terminal ileum. Protruding lesions: * 4 sessile polyp of size 2-5 mm in the cecum. Cold snare polypectomy was performed. The polyps were completely removed and retrieved. * 1 semi-pedunculated polyp of size 5 mm in the cecum. Hot snare polypectomy was performed. The polyp was completely removed and retrieved. * Medium internal hemorrhoids without stigmata of recent bleeding. Path: A.? Stomach, antrum lesser curvature, biopsy: - Antral-type mucosa with severe chronic active inflammation. - Positive for H pylori. B.? Stomach, antrum greater curvature, biopsy: - Antral-type mucosa with severe chronic active inflammation. - Positive for H pylori. C.? Stomach, incisura, biopsy: - Antral-type mucosa with severe chronic active inflammation. - Positive for H pylori. D.? Stomach, body lesser curvature, biopsy: - Antral-type and oxyntic mucosa with severe chronic active inflammation. - Positive for H pylori. E.? Stomach, body greater curvature, biopsy: - Oxyntic mucosa with severe chronic active inflammation. - Positive for H pylori. F.? Cecum, polypectomies (5):? Fragments of tubular adenomata; negative for high-grade dysplasia or carcinoma. 01/07/23: Presents with his . No acute gastrointestinal issues. Results of EGD and colo reviewed. Due to fam hx of gastric ca and inflammation noted on histology, will favor treatment or H Pylori. He was also notified of 5 TAs and need for repeat colo in 3 years. [facility] Medical History BPH (benign prostatic hyperplasia) CVA (cerebral vascular accident) Hypertension, essential Surgical History History of esophagogastroduodenoscopy (EGD) History of total right knee replacement Hx of colonoscopy Family History Father Stomach cancer Paternal Grandfather Stomach cancer Social History Household Members: Spouse Housing: House Alcohol intake: current Alcohol intake frequency: a few times a week Patient Tobacco Use Status: Former Tobacco user Quit Date: 1999 Tobacco use type: Cigarette Years Smoked: 30 +/- e-Cigarette/Vaping Use: Never Used Substance Use Type: Marijuana service: No Current occupational status: employed and retired 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 Current occupational exposures/hazards: No Cognitive needs: No Hearing needs: No Vision needs: No Review of Systems Const All systems reviewed & are unremarkable except as noted in HPI and below Physical Exam Vital Signs: Last Vital Signs Pulse 57 01/07/23 11:05 BP 149/71 H 01/07/23 11:05 BMI result Body Mass Index 33.5 Gen appear: No acute distress, well nourished HEENT: no icterus, no cervical lymphadenopathy Chest: No overt resp distress CVS: S1/S2, regular Abd: soft, nontender, nondistended Psych: Stable affect, answering questions appropriately Neuro: A/Ox3 noted to move all extremities spontaneously Ext: no peripheral edema Assessment & Plan Assessment & Plan (1) Personal history of colonic polyps: Code(s): Z86.010 - Personal history of colonic polyps (2) Family history of stomach cancer: Code(s): Z80.0 - Family history of malignant neoplasm of digestive organs (3) Warfarin anticoagulation: Code(s): Z79.01 - nursing home (current) use of anticoagulants (4) H. pylori infection: Code(s): A04.8 - Other specified bacterial intestinal infections Plan 1. Colon polyps: Repeat colonoscopy recommended in 3 years i.e 2025. Bulletin board updated in [employer]. 2. H Pylori infection: Due to fam hx of gastric ca in father as well as grandfather will favor treatment despite absence of GIM on mapping biopsies. Quad therapy will be prescribed as below. Plan: -Omeprazole 40mg 2 times a day -Tetracycline 500mg 4 times a day (counseled on sun sensitivity) -Metronidazole 250mg 4 times a day? (Counseled on avoidance of etOH with this) -Bismuth Subsalicylate 524mg 4 times a day (may turn stools black). -This is to be taken for 14 days total -Breath test for KAHLIL will be arranged 2-3 weeks after completion of therapy -Instructions were given in written as well -Pt was also encouraged to reach out to coumadin clinic due to potential for drug interaction, for any adjustment in warfarin as needed. Follow up in office if KAHLIL positive. Medications: New omeprazole 20 mg PO BID 14 days 28 caps 0RF metronidazole 250 mg PO QID 14 days 56 tabs 0RF bismuth subsalicylate 2 tabs PO QID 14 days 112 tabs 0RF tetracycline 500 mg PO QID 14 days 56 caps 0RF Patient Instructions: Date: 01/07/23 ? Dear Penelope ? This is to review the results of the biopsy and the instructions for medications again. As discussed, the upper endoscopy showed presence of H.Pylori which is a bacteria that can cause irritation and changes in the lining of the stomach. In most patients, it is important to treat this as if left untreated there is a small chance of the gastric changes progressing to cancer. This small risk is variable and also depends on other factors such as obesity, diabetes, family history etc. Treatment is through a combination of antibiotics and acid-suppressing medications to be taken for 2 weeks. Please do not start the treatment until you have ALL the following pills: -Omeprazole 40mg 2 times a day -Tetracycline 500mg 4 times a day (avoid sunburn while taking) -Metronidazole 250mg 4 times a day? (this may cause abdominal discomfort and nausea. Avoid all alcohol while taking, can take with food to avoid nausea) -Bismuth Subsalicylate 524mg 4 times a day (may turn stools black). Once the treatment has been completed, you will be due for a test to make sure the bacteria has been eliminated ( test of cure ). If you have any questions, please call the office at [phone]. Sincerely Jasmin Lemon MD Gastroenterology [address] [place] [address], [address] [place] [address] Coding Level of Care Code Est Pt Level 4 (70791) Diagnoses Personal history of colonic polyps Z86.010 Family history of stomach cancer Z80.0 Warfarin anticoagulation Z79.01 H. pylori infection A04.8
[2023-01-07 11:05] VITALS: BP 149/71; PULSE 57; BMI 33.5
== END 2023-01-07 11:39 | disposition home or self-care (01) ==
PROVIDERS: Visit Provider Internal Medicine
DX: D12.0 Benign neoplasm of cecum (principal); A04.8 Other specified bacterial intestinal infections; Z86.010 Personal history of colon polyps; Z71.2 Person consulting for explanation of examination or test findings
CPT/HCPCS: 99214

== ENCOUNTER → 2023-01-07 10:56 | Outpatient (BNVA) | payer MEDICARE, SELFPAY | PROVIDERS: Visit Provider Internal Medicine | DX: A04.8 Other specified bacterial intestinal infections (principal); Z79.01 Long term (current) use of anticoagulants; Z86.010 Personal history of colon polyps; Z80.0 Family history of malignant neoplasm of digestive organs | CPT/HCPCS: 99212 ==

== ENCOUNTER 2023-01-13 08:55 | Outpatient (AMB) | payer MEDICARE, SELFPAY ==
[2023-01-13 09:09] LABS: ~PT, ~INR - Anti Coag Clinic 3.6 (0.9-1.1)
--- NOTE | 2023-01-13 09:16 | MHC.OFFVISCO ---
Intake Intake Visit Reasons: Anticoagulation Allergies hydrochlorothiazide Allergy (Unknown, Verified 01/13/23 09:02) muscle stiffness Medication List - Last Reconciled 01/13/23 by Freda Thomas RN atenolol 50 mg PO DAILY 90 days atorvastatin 40 mg PO BEDTIME bismuth subsalicylate 2 tabs PO QID 14 days chlorhexidine gluconate 0.12% mL PO metronidazole 250 mg PO QID 14 days omeprazole 20 mg PO BID 14 days tetracycline 500 mg PO QID 14 days warfarin See Protocol one to two tablets based on INR level PO daily; dosing to be adjusted as instructed by Anticoagulation Clinic Nursing Note Amb to [facility] accomp by , feeling ok has started on the bismuth (aware not to take at same time as warfarin), metronidazole (raise INR), Omeprazole (raise INR), and tetracycline (raise INR) 01/10 sts taking x 14 days, for H/Pylori, should be completed 01/23, has increased greens and decreased dose last night to 7.5mg (vs 10 per L.Trevino) Medications and supplements reviewed as noted above, pt sts he is not drinking beers while on new meds No other changes in health, diet, medications, or supplements Denies any unusual signs and symptoms of bruising, bleeding Denies any new Chest pain, SOB, or clotting INR: 3.6 above therapeutic range Nutritional guidance given: continue with moderate greens while on antibiotics, Dose: hold warfarin today, resume 7.5mg Thursday and , decrease dose on Thursday to 5mg (vs 7.5mg), take 7.5mg Thursday and Thursday and Thursday; F/U INR: 1 week, reviewed with pt and importance of continued follow up as already INR is elevating and dosing adjustments Patient verbalizes understanding of instructions given with accurate read back/ teach back of dosing Anti-Coag Initial Assessment Social Hx Patient Tobacco Use Status: Former Tobacco user Quit Date: 1999 Tobacco use type: Cigarette alcohol intake: current Alcohol intake frequency: a few times a week Cardiovascular Hx: HTN and Other (enlarged right ventricle) Blood Disorder Hx: Hyperlipidemia Hx: Prostate and Other (urinary frequency) Neurological Hx: Epilepsy/Seizures and Stroke/TIA Cancer HX: No Psych. Illness/Depression: No Coding Level of Care Code Est Patient Level 1 Diagnoses Current use of anticoagulant therapy Z79.01 Time Spent (min) 15 Assessment & Plan Assessment & Plan (1) Current use of anticoagulant therapy: Code(s): Z79.01 - long-term (current) use of anticoagulants Category: Medical
== END 2023-01-13 09:45 | disposition home or self-care (01) ==
LOC: HO.ACS 08:55
PROVIDERS: PCP Internal Medicine; Visit Provider Internal Medicine
DX: Z79.01 Long term (current) use of anticoagulants (principal)

== ENCOUNTER → 2023-01-13 08:55 | Outpatient (BNVA) | payer MEDICARE, SELFPAY | PROVIDERS: PCP Internal Medicine; Visit Provider Internal Medicine | DX: Z86.73 Personal history of transient ischemic attack (TIA), and cerebral infarction without residual deficits (principal); Z79.01 Long term (current) use of anticoagulants; Z51.81 Encounter for therapeutic drug level monitoring | CPT/HCPCS: 85610; 99211 ==

== ENCOUNTER 2023-01-20 08:57 | Outpatient (AMB) | payer MEDICARE, SELFPAY ==
[2023-01-20 09:17] LABS: Prothrombin Time Whole Bld POC 63.3 sec (11.1-13.5); ~PT, ~INR - Anti Coag Clinic 5.3 (0.9-1.1)
--- NOTE | 2023-01-20 09:39 | MHC.OFFVISCO ---
Intake Intake Visit Reasons: Anticoagulation Allergies hydrochlorothiazide Allergy (Unknown, Verified 01/20/23 09:08) muscle stiffness Medication List - Last Reconciled 01/20/23 by Freda Thomas RN atenolol 50 mg PO DAILY 90 days atorvastatin 40 mg PO BEDTIME bismuth subsalicylate 2 tabs PO QID 14 days chlorhexidine gluconate 0.12% mL PO metronidazole 250 mg PO QID 14 days omeprazole 20 mg PO BID 14 days tetracycline 500 mg PO QID 14 days warfarin See Protocol one to two tablets based on INR level PO daily; dosing to be adjusted as instructed by Anticoagulation Clinic Nursing Note Amb to [facility] accomp by , feeling well Medications and supplements reviewed, continues on antibiotics for H Pylori, will complete 01/23 No other changes in health, diet, medications, or supplements Denies any unusual signs and symptoms of bruising, bleeding Denies any new Chest pain, SOB, or clotting INR: 5.3 our meter, sent to our lab for confirmation LAB 4.6 discussion regarding elevation somewhat expected due to meds however dosing changes last week to try to keep from going too high pt not a green eater though he was instructed to increase greens, sts he had green beans (no lowering effect) and blueberries, discussed needs a good green like spinach today or broccoli has been also eating cherries which can raise INR Nutritional guidance given: dark leafy greens today and tomorrow, spinach only x 1 day can do broccoli x 2 days, reviewed power of greens and food list then balance greens and reds in diet Dose: hold warfarin today, decrease dose tomorrow to 2.5mg, and 5mg on recheck on Thursday; F/U INR: 01/23 Patient and verbalizes understanding of instructions given with accurate read back/ teach back of dosing and understanding of continuous monitoring due to antibiotics compose note to Dr Marino office as original meter was critical INR Anti-Coag Initial Assessment Social Hx Patient Tobacco Use Status: Former Tobacco user Quit Date: 1999 Tobacco use type: Cigarette alcohol intake: current Alcohol intake frequency: a few times a week Cardiovascular Hx: HTN and Other (enlarged right ventricle) Blood Disorder Hx: Hyperlipidemia Hx: Prostate and Other (urinary frequency) Neurological Hx: Epilepsy/Seizures and Stroke/TIA Cancer HX: No Psych. 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
== END 2023-01-20 15:38 | disposition home or self-care (01) ==
LOC: HO.ACS 08:57
PROVIDERS: PCP Internal Medicine; Visit Provider Internal Medicine
DX: Z79.01 Long term (current) use of anticoagulants (principal)

== ENCOUNTER 2023-01-20 08:57 | Outpatient (REF) | payer MEDICARE, SELFPAY ==
[2023-01-20 10:19] LABS: INTERNATIONAL NORM RATIO 4.6 (0.9-1.1); Prothrombin Time 56.4 SEC (11.1-13.3)
== END 2023-01-20 08:58 | disposition home or self-care (01) ==
LOC: HO.LAB 08:57
PROVIDERS: PCP Internal Medicine; Visit Provider Internal Medicine
DX: Z79.01 Long term (current) use of anticoagulants (principal)
CPT/HCPCS: 36415; 85610; 99212

== ENCOUNTER 2023-01-23 09:25 | Outpatient (AMB) | payer MEDICARE, SELFPAY ==
[2023-01-23 10:03] LABS: Prothrombin Time Whole Bld POC 32.9 sec (11.1-13.5); ~PT, ~INR - Anti Coag Clinic 2.7 (0.9-1.1)
--- NOTE | 2023-01-23 10:08 | MHC.OFFVISCO ---
Intake Intake Visit Reasons: Anticoagulation Allergies hydrochlorothiazide Allergy (Unknown, Verified 01/23/23 09:57) muscle stiffness Medication List - Last Reconciled 01/23/23 by Freda Thomas RN atenolol 50 mg PO DAILY 90 days atorvastatin 40 mg PO BEDTIME bismuth subsalicylate 2 tabs PO QID 14 days chlorhexidine gluconate 0.12% mL PO metronidazole 250 mg PO QID 14 days omeprazole 20 mg PO BID 14 days tetracycline 500 mg PO QID 14 days warfarin See Protocol one to two tablets based on INR level PO daily; dosing to be adjusted as instructed by Anticoagulation Clinic Nursing Note Amb to [facility] accomp by feeling well Medications and supplements reviewed, warfarin dosing chgs due to H Pylori antibiotics, completing today No other changes in health, diet, medications, or supplements Denies any unusual signs and symptoms of bruising, bleeding Denies any new Chest pain, SOB, or clotting INR: 2.7 now in therapeutic range Nutritional guidance given: continue with extra greens related to delayed onset of some of new meds Dose: resume usual dosing; 10mg x 1 day and 7.5mg x 6 days F/U INR: 1 week Patient verbalizes understanding of instructions given with accurate read back/ teach back of dosing Anti-Coag Initial Assessment Social Hx Patient Tobacco Use Status: Former Tobacco user Quit Date: 1999 Tobacco use type: Cigarette alcohol intake: current Alcohol intake frequency: a few times a week Cardiovascular Hx: HTN and Other (enlarged right ventricle) Blood Disorder Hx: Hyperlipidemia Hx: Prostate and Other (urinary frequency) Neurological Hx: Epilepsy/Seizures and Stroke/TIA Cancer HX: No Psych. Illness/Depression: No Coding Level of Care Code Est Patient Level 1 Diagnoses Current use of anticoagulant therapy Z79.01 Time Spent (min) 15 Assessment & Plan Assessment & Plan (1) Current use of anticoagulant therapy: Code(s): Z79.01 - [facility] (current) use of anticoagulants Category: Medical
== END 2023-01-23 10:20 | disposition home or self-care (01) ==
LOC: HO.ACS 09:25
PROVIDERS: PCP Internal Medicine; Visit Provider Internal Medicine
DX: Z79.01 Long term (current) use of anticoagulants (principal)

== ENCOUNTER → 2023-01-23 09:25 | Outpatient (BNVA) | payer MEDICARE, SELFPAY | PROVIDERS: PCP Internal Medicine; Visit Provider Internal Medicine | DX: Z86.73 Personal history of transient ischemic attack (TIA), and cerebral infarction without residual deficits (principal); Z79.01 Long term (current) use of anticoagulants; Z51.81 Encounter for therapeutic drug level monitoring | CPT/HCPCS: 85610; 99211 ==

== ENCOUNTER 2023-01-30 08:32 | Outpatient (AMB) | payer MEDICARE, SELFPAY ==
[2023-01-30 08:47] LABS: Prothrombin Time Whole Bld POC 41.5 sec (11.1-13.5); ~PT, ~INR - Anti Coag Clinic 3.5 (0.9-1.1)
--- NOTE | 2023-01-30 09:00 | MHC.OFFVISCO ---
Intake Intake Visit Reasons: Anticoagulation Allergies hydrochlorothiazide Allergy (Unknown, Verified 01/30/23 08:40) muscle stiffness Medication List - Last Reconciled 01/30/23 by Freda Thomas, RN atenolol 50 mg PO DAILY 90 days atorvastatin 40 mg PO BEDTIME chlorhexidine gluconate 0.12% mL PO warfarin See Protocol one to two tablets based on INR level PO daily; dosing to be adjusted as instructed by Anticoagulation Clinic Nursing Note Amb to [facility] accomp by , feeling well Medications and supplements reviewed, HPylori meds removed from EMAR as completed No changes in health, diet, medications, or supplements PT STS having dental implant x 2 on 02/10 (posts and temp crown) sts he needed to hold warfarin x 2 days before and have an INR done day before Denies any unusual signs and symptoms of bruising, bleeding Denies any new Chest pain, SOB, or clotting INR: 3.5 above therapeutic range, increase secondary to delayed raise in INR from HPylori meds Nutritional guidance given: mod greens today then balance greens and reds in diet, greens when prep for dental Dose: decrease dose today to 5mg (vs 7.5) and take 7.5mg daily (including Thursday which is usually 10mg) until hold 02/08 and 02/09 for dental on 02/10; F/U INR: 02/09 Patient and verbalizes understanding of instructions given with accurate read back/ teach back of dosing Anti-Coag Initial Assessment Social Hx Patient Tobacco Use Status: Former Tobacco user Quit Date: 1999 Tobacco use type: Cigarette alcohol intake: current Alcohol intake frequency: a few times a week Cardiovascular Hx: HTN and Other (enlarged right ventricle) Blood Disorder Hx: Hyperlipidemia Hx: Prostate and Other (urinary frequency) Neurological Hx: Epilepsy/Seizures and Stroke/TIA Cancer HX: No Psych. Illness/Depression: No Coding Level of Care Code Est Patient Level 2 Diagnoses Current use of anticoagulant therapy Z79.01 Time Spent (min) 30 Assessment & Plan Assessment & Plan (1) Current use of anticoagulant therapy: Code(s): Z79.01 - [facility] (current) use of anticoagulants Category: Medical
== END 2023-01-30 09:12 | disposition home or self-care (01) ==
LOC: HO.ACS 08:32
PROVIDERS: PCP Internal Medicine; Visit Provider Internal Medicine
DX: Z79.01 Long term (current) use of anticoagulants (principal)

== ENCOUNTER → 2023-01-30 08:32 | Outpatient (BNVA) | payer MEDICARE, SELFPAY | PROVIDERS: PCP Internal Medicine; Visit Provider Internal Medicine | DX: I69.30 Unspecified sequelae of cerebral infarction (principal); Z79.01 Long term (current) use of anticoagulants; Z51.81 Encounter for therapeutic drug level monitoring | CPT/HCPCS: 85610; 99212 ==

== ENCOUNTER 2023-02-09 08:31 | Outpatient (AMB) | payer MEDICARE, SELFPAY ==
[2023-02-09 08:39] LABS: Prothrombin Time Whole Bld POC 24.9 sec (11.1-13.5); ~PT, ~INR - Anti Coag Clinic 2.1 (0.9-1.1)
--- NOTE | 2023-02-09 08:50 | MHC.OFFVISCO ---
Intake Intake Visit Reasons: Anticoagulation Allergies hydrochlorothiazide Allergy (Unknown, Verified 02/09/23 08:32) muscle stiffness Medication List - Last Reconciled 02/09/23 by Cherie Gallegos RN amoxicillin 2,000 mg PO atenolol 50 mg PO DAILY 90 days atorvastatin 40 mg PO BEDTIME chlorhexidine gluconate 0.12% mL PO warfarin See Protocol one to two tablets based on INR level PO daily; dosing to be adjusted as instructed by Anticoagulation Clinic Nursing Note INR: 2.1 in therapeutic range Medications and supplements reviewed No changes in health, diet, medications, or supplements, Denies any signs and symptoms of bleeding or bruising or clotting. Bleeding, bruising, clotting discussed Nutritional guidance given Dose: HOLDING X 2 DAYS FOR DENTAL IMPLANTS THEN RESUME TUES PER MD 10MG X 2 DAYS/ THEN RESUME 10MG X 1 DAY/ 6MG X 6 DAYS F/U INR: 10 DAYS Patient verbalizes understanding of instructions given RESULTS FAXED TO [facility] MOELLER Anti-Coag Initial Assessment Social Hx Patient Tobacco Use Status: Former Tobacco user Quit Date: 1999 Tobacco use type: Cigarette alcohol intake: current Alcohol intake frequency: a few times a week Cardiovascular Hx: HTN and Other (enlarged right ventricle) Blood Disorder Hx: Hyperlipidemia Hx: Prostate and Other (urinary frequency) Neurological Hx: Epilepsy/Seizures and Stroke/TIA Cancer HX: No Psych. Illness/Depression: No Coding Level of Care Code Est Patient Level 1 Diagnoses Current use of anticoagulant therapy Z79.01 Results AMB INR Fingerstick AMB INR Fingerstick 2.1 Last Edit by Cherie Gallegos RN on 02/09/23 08:41 MANUAL ENTRY INTERFACE DELAY Assessment & Plan Assessment & Plan (1) Current use of anticoagulant therapy: Code(s): Z79.01 - [facility] (current) use of anticoagulants Category: Medical
== END 2023-02-09 08:53 | disposition home or self-care (01) ==
LOC: HO.ACS 08:31
PROVIDERS: PCP Internal Medicine; Visit Provider Internal Medicine
DX: Z79.01 Long term (current) use of anticoagulants (principal)

== ENCOUNTER → 2023-02-09 08:31 | Outpatient (BNVA) | payer MEDICARE, SELFPAY | PROVIDERS: PCP Internal Medicine; Visit Provider Internal Medicine | DX: Z86.73 Personal history of transient ischemic attack (TIA), and cerebral infarction without residual deficits (principal); Z79.01 Long term (current) use of anticoagulants; Z51.81 Encounter for therapeutic drug level monitoring | CPT/HCPCS: 85610; 99211 ==

== ENCOUNTER 2023-02-12 08:42 | Outpatient (REF) | payer MEDICARE, SELFPAY ==
[2023-02-16 10:55] LABS: H Pylori Breath Test Negative (Negative)
== END 2023-02-12 08:43 | disposition home or self-care (01) ==
LOC: HO.LNP 08:42
PROVIDERS: PCP Internal Medicine; Visit Provider Internal Medicine
DX: Z11.2 Encounter for screening for other bacterial diseases (principal)
CPT/HCPCS: 83013; 99211

== ENCOUNTER 2023-02-23 09:00 | Outpatient (AMB) | payer MEDICARE, SELFPAY ==
--- NOTE | 2023-02-23 09:08 | MHC.OFFVISCO ---
Intake Intake Visit Reasons: Anticoagulation Allergies hydrochlorothiazide Allergy (Unknown, Verified 02/23/23 09:05) muscle stiffness Medication List - Last Reconciled 02/23/23 by Aleah Trevino RN amoxicillin 2,000 mg PO atenolol 50 mg PO DAILY 90 days atorvastatin 40 mg PO BEDTIME chlorhexidine gluconate 0.12% mL PO warfarin See Protocol one to two tablets based on INR level PO daily; dosing to be adjusted as instructed by Anticoagulation Clinic Nursing Note INR: 2.4- in therapeutic range Medications and supplements reviewed No changes in health, diet, medications, or supplements, Denies any signs and symptoms of bleeding or bruising or clotting. Bleeding, bruising, clotting discussed Nutritional guidance given Dose: 10mg x 1, 7.5mg x 6 F/U INR: pt ref earlier appt than 4 weeks Patient and verbalizes understanding of instructions given pt s/p dental implants on 02/10/23, finished course of antibiotics. pt states eating more solid foods- ie broccolli and tomatoes. has f/u with dentist today. pt states will call acs with any changes Anti-Coag Initial Assessment Social Hx Patient Tobacco Use Status: Former Tobacco user Quit Date: 1999 Tobacco use type: Cigarette alcohol intake: current Alcohol intake frequency: a few times a week Cardiovascular Hx: HTN and Other (enlarged right ventricle) Blood Disorder Hx: Hyperlipidemia Hx: Prostate and Other (urinary frequency) Neurological Hx: Epilepsy/Seizures and Stroke/TIA Cancer HX: No Psych. Illness/Depression: No Coding Level of Care Code Est Patient Level 1 Diagnoses Current use of anticoagulant therapy Z79.01 Assessment & Plan Assessment & Plan (1) Current use of anticoagulant therapy: Code(s): Z79.01 - custodial (current) use of anticoagulants Category: Medical
[2023-02-23 09:10] LABS: Prothrombin Time Whole Bld POC 28.3 sec (11.1-13.5); ~PT, ~INR - Anti Coag Clinic 2.4 (0.9-1.1)
== END 2023-02-23 09:18 | disposition home or self-care (01) ==
LOC: HO.ACS 09:00
PROVIDERS: PCP Internal Medicine; Visit Provider Internal Medicine
DX: Z79.01 Long term (current) use of anticoagulants (principal)

== ENCOUNTER → 2023-02-23 09:00 | Outpatient (BNVA) | payer MEDICARE, SELFPAY | PROVIDERS: PCP Internal Medicine; Visit Provider Internal Medicine | DX: Z86.73 Personal history of transient ischemic attack (TIA), and cerebral infarction without residual deficits (principal); Z79.01 Long term (current) use of anticoagulants; Z51.81 Encounter for therapeutic drug level monitoring | CPT/HCPCS: 85610; 99211 ==

== ENCOUNTER 2023-03-24 09:01 | Outpatient (AMB) | payer MEDICARE, SELFPAY ==
--- NOTE | 2023-03-24 09:15 | MHC.OFFVISCO ---
Intake Intake Visit Reasons: Anticoagulation Allergies hydrochlorothiazide Allergy (Unknown, Verified 03/24/23 09:09) muscle stiffness Medication List - Last Reconciled 03/24/23 by Aleah Trevino RN amoxicillin 2,000 mg PO atenolol 50 mg PO DAILY 90 days atorvastatin 40 mg PO BEDTIME warfarin See Protocol one to two tablets based on INR level PO daily; dosing to be adjusted as instructed by Anticoagulation Clinic Nursing Note INR: 2.1- in therapeutic range Medications and supplements reviewed No changes in health, diet, medications, or supplements, Denies any signs and symptoms of bleeding or bruising or clotting. Bleeding, bruising, clotting discussed Nutritional guidance given Dose: 10mg x 1, 7.5mg x 6 F/U INR: 4 weeks Patient verbalizes understanding of instructions given Anti-Coag Initial Assessment Social Hx Patient Tobacco Use Status: Former Tobacco user Quit Date: 1999 Tobacco use type: Cigarette alcohol intake: current Alcohol intake frequency: a few times a week Cardiovascular Hx: HTN and Other (enlarged right ventricle) Blood Disorder Hx: Hyperlipidemia Hx: Prostate and Other (urinary frequency) Neurological Hx: Epilepsy/Seizures and Stroke/TIA Cancer HX: No Psych. 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
== END 2023-03-24 09:40 | disposition home or self-care (01) ==
LOC: HO.ACS 09:01
PROVIDERS: PCP Internal Medicine; Visit Provider Internal Medicine
DX: Z79.01 Long term (current) use of anticoagulants (principal)

== ENCOUNTER → 2023-03-24 09:01 | Outpatient (BNVA) | payer MEDICARE, SELFPAY | PROVIDERS: PCP Internal Medicine; Visit Provider Internal Medicine | DX: Z86.73 Personal history of transient ischemic attack (TIA), and cerebral infarction without residual deficits (principal); Z79.01 Long term (current) use of anticoagulants; Z51.81 Encounter for therapeutic drug level monitoring | CPT/HCPCS: 85610; 99211 ==

== ENCOUNTER 2023-04-21 09:25 | Outpatient (AMB) | payer MEDICARE, SELFPAY ==
[2023-04-21 09:40] LABS: Prothrombin Time Whole Bld POC 34.3 sec (11.1-13.5); ~PT, ~INR - Anti Coag Clinic 2.9 (0.9-1.1)
--- NOTE | 2023-04-21 09:40 | MHC.OFFVISCO ---
Intake Intake Visit Reasons: Anticoagulation Allergies hydrochlorothiazide Allergy (Unknown, Verified 03/24/23 09:09) muscle stiffness Nursing Note INR: 2.9- in therapeutic range of 2-3 Medications and supplements reviewed- had flu and covid booster on 03/27/23 No changes in health, diet, medications, or supplements, Denies any signs and symptoms of bleeding or bruising or clotting. Bleeding, bruising, clotting discussed Nutritional guidance given Dose: 10mg x 1, 7.5mg x 6 F/U INR: pt req 5 weeks Patient verbalizes understanding of instructions given Anti-Coag Initial Assessment Social Hx Patient Tobacco Use Status: Former Tobacco user Quit Date: 1999 Tobacco use type: Cigarette alcohol intake: current Alcohol intake frequency: a few times a week Cardiovascular Hx: HTN and Other (enlarged right ventricle) Blood Disorder Hx: Hyperlipidemia Hx: Prostate and Other (urinary frequency) Neurological Hx: Epilepsy/Seizures and Stroke/TIA Cancer HX: No Psych. Illness/Depression: No Coding Level of Care Code Est Patient Level 1 Diagnoses Current use of anticoagulant therapy Z79.01 Assessment & Plan Assessment & Plan (1) Current use of anticoagulant therapy: Code(s): Z79.01 - assisted (current) use of anticoagulants Category: Medical
== END 2023-04-21 09:52 | disposition home or self-care (01) ==
LOC: HO.ACS 09:25
PROVIDERS: PCP Internal Medicine; Visit Provider Internal Medicine
DX: Z79.01 Long term (current) use of anticoagulants (principal)

== ENCOUNTER → 2023-04-21 09:25 | Outpatient (BNVA) | payer MEDICARE, SELFPAY | PROVIDERS: PCP Internal Medicine; Visit Provider Internal Medicine | DX: Z86.73 Personal history of transient ischemic attack (TIA), and cerebral infarction without residual deficits (principal); Z79.01 Long term (current) use of anticoagulants; Z51.81 Encounter for therapeutic drug level monitoring | CPT/HCPCS: 85610; 99211 ==

== ENCOUNTER 2023-04-22 10:25 | Outpatient (AMB) | payer MEDICARE, SELFPAY ==
[2023-04-22 10:27] VITALS: BP 142/74; PULSE 60; O2SAT 96; BMI 33.9
--- NOTE | 2023-04-22 10:27 | A.OFFPC_ITS ---
Vital Signs 04/22/23 10:27 Height 6 ft Weight 250 lb 2 oz BMI 33.9 BP 142/74 H Blood Pressure Location Rt brachial Position Sitting Pulse 60 Pulse Source Pulse Oximeter Pulse Oximetry (%) 96 Oxygen Delivery Method Room Air Intake Visit Reasons: Annual Allergies hydrochlorothiazide Allergy (Unknown, Verified 04/22/23 10:27) muscle stiffness Medication List - Last Reconciled 04/22/23 by Ronal Marino MD atenolol 50 mg PO DAILY 90 days atorvastatin 40 mg PO BEDTIME warfarin See Protocol one to two tablets based on INR level PO daily; dosing to be adjusted as instructed by Anticoagulation Clinic Tobacco use date assessed: 04/22/23 Fall risk assessment: No Falls in past year Last assessed Fall Risk: 04/22/23 Dental Screening Dental Screen Date: 04/22/23 Did you have a dental visit in the last 12 months?: Yes Did you have a dental problem in the last 6 months where you did not have access to dental care?: No Was dental information given to patient?: Patient has dentist HPI Annual HPI Details Patient is a 68-year-old gentleman with history of stroke See neurologist last year currently taking warfarin Patient had Cardiology visit in October when his loop recorder was removed, no atrial ventricular arrhythmia was recorded as a cause of stroke He is questioning whether he should continue with warfarin I have told him to discuss it further with the Neurology Meanwhile patient is on atenolol 50 mg and atorvastatin 40 mg He goes to warfarin clinic every 5 week for INR check He had a colonoscopy December of this year by Dr. [facility], next 1 will be in 3 years BMI is elevated at 33.9 patient need to lose weight Labs are due today Patient has no appointment scheduled for cardiology I see in his chart He will return in 6 months for follow-up with me Pneumonia and tetanus vaccine was given today. Patient already had COVID and flu vaccine from pharmacy for this season. [facility] Medical History BPH (benign prostatic hyperplasia) CVA (cerebral vascular accident) Hypertension, essential Surgical History History of esophagogastroduodenoscopy (EGD) Hx of colonoscopy History of total right knee replacement Family History Father Stomach cancer Paternal Grandfather Stomach cancer Social History Household Members: Spouse Housing: House Alcohol intake: current Alcohol intake frequency: a few times a week Patient Tobacco Use Status: Former Tobacco user Quit Date: 1999 Tobacco use type: Cigarette Years Smoked: 30 +/- e-Cigarette/Vaping Use: Never Used Substance Use Type: Marijuana service: No Current occupational status: employed and retired 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 1. Little interest or pleasure in doing things: not at all 2. Feeling down, depressed, or hopeless: not at all 3. Trouble falling or staying asleep, or sleeping too much: not at all 4. Feeling tired or having little energy: not at all 5. Poor appetite or overeating: not at all 6. Feeling bad about yourself - or that you are a failure or have let yourself or your family down: not at all 7. Trouble concentrating on things, such as reading the newspaper or watching television: not at all 8. Moving or speaking so slowly that other people could have noticed. Or the opposite - being so fidgety or restless that you have been moving around a lot more than usual: not at all 9. Thoughts that you would be better off or of hurting yourself in some way: not at all Total score: 0 Depression Screening Interpretation: Negative Depression Screening Done: Yes 06395 - PHQ-9 Billing: Yes Source: Developed by Drs. José Miguel Fischer, Katya Green, Kni Doan and colleagues, with an educational willi from [employer]. Thrive Questionnaire Date Thrive assessed: 08/30/21 WYATT-7 AMB Questionnaire WYATT-7 Date WYATT - 7 assessed: 08/30/21 Source: Developed by Drs. José Miguel Fischer, Katya Green, Kin Doan and colleagues, with an educational willi from [employer]. Review of Systems Const Denies chills, Denies fever(s) and Denies headache(s) Eyes Denies blurry vision ENT Denies headache(s), Denies nasal discharge, Denies nasal obstruction, Denies odynophagia and Denies sinus pain Card Denies chest pain at rest and Denies chest pain with activity Resp Denies cough and Denies hemoptysis GI Denies diarrhea, Denies odynophagia, Denies vomiting and Denies hematemesis Reports as per HPI Musc Denies abnormal gait Skin/Breast Reports as per HPI Neuro Denies Neuro-related abnormal movements, Denies Abnormal speech present, Denies abnormal gait and Denies headache(s) Psych Denies mood swings and Denies paranoia Endo Reports as per HPI Reddy/Lymph Reports as per HPI Aller/Immun Reports as per HPI Physical exam (Primary Care) Vital Signs: Last Vital Signs Pulse 60 04/22/23 10:27 BP 142/74 H 04/22/23 10:27 Pulse Ox 96 04/22/23 10:27 Oxygen Delivery Method Room Air 04/22/23 10:27 BMI result Body Mass Index 33.9 Tobacco/Smoking Status: Tobacco use Status Tobacco use date assessed 04/22/23 04/22/23 10:29 Patient Tobacco Use Status Former Tobacco user 04/22/23 10:29 Tobacco use type Cigarette 04/22/23 10:29 e-Cigarette/Vaping Use Never Used 04/22/23 10:29 Depression Screening Interpretation: Negative Thrive Assessment: Date of Thrive Assessment Date Thrive assessed 08/30/21 04/22/23 10:29 Const General: cooperative, comfortable and no acute distress Orientation/consciousness: patient oriented x3 HENMT Head: Yes normocephalic and Yes atraumatic Eyes General: appearance normal, both eyes and all related structures Pupils: Equal, round and reactive pupils present EOM: EOMs intact bilaterally Neck Neck: Yes supple and No lymphadenopathy Thyroid: Thyroid normal Lymphatic: no lymphadenopathy noted Chest Breast/axilla palpation: normal palpation of the breasts Resp Effort & Inspection: normal respiratory effort and able to speak in complete sentences Auscultation: clear to auscultation bilaterally Cardio Heart sounds: S1 normal heart sound present and S2 normal heart sound present GI Palpation (GI): Soft to palpation and nontender Auscultation: normal bowel sounds General: Yes no CVA tenderness Back/Spine/Pelvis Back: no CVA tenderness Skin General skin exam: elasticity normal and turgor normal Neuro General: patient oriented x3 and gait normal Cranial nerves: Yes Equal, round and reactive pupils present Speech: No Abnormal speech present Coordination: tandem gait normal and Romberg test negative Extrem General: Yes normal exam except as noted and No edema Immunizations pneumoc 20-nicole conj-dip cr(PF) 0.5 mL IM syringe Performing Provider: Ronal Marino MD Performing Location: [facility] Administered by: REGULO Hayes on 04/22/23 11:11 Dose Route Admin Location Dispensed Lot Number Expiration Date [employer] Community Service Officer Coordinator 0.5 mL IM Left Deltoid 0.5 mL [id number] 01/14/24 0976-7999-56 [employer] VIS Given Date VIS Provided VIS Publication Date 04/22/23 Single Vaccine 21 Eligibility Eligibility Date Funding Source Not VFC Eligible 04/22/23 Private Boostrix Tdap 2.5 Lf unit-8 mcg-5 Lf/0.5 mL intramuscular syringe Performing Provider: Ronal Marino MD Performing Location: [facility] Administered by: [employer] REGULO Landis on 04/22/23 11:11 Dose Route Admin Location Dispensed Lot Number Expiration Date [employer] Community Service Officer Coordinator 0.5 mL IM Left Deltoid 0.5 mL [id number] 06/25/25 [id number] [employer] VIS Given Date VIS Provided VIS Publication Date 04/22/23 Single Vaccine 21 Eligibility Eligibility Date Funding Source Not VFC Eligible 04/22/23 Private Assessment and Plan Assessment & Plan (1) Encounter for general adult medical examination with abnormal findings: Code(s): Z00.01 - Encounter for general adult medical examination with abnormal findings (2) Lipid disorder: Code(s): E78.9 - Disorder of lipoprotein metabolism, unspecified (3) Seizures: Code(s): R56.9 - Unspecified convulsions (4) Enlarged RV (right ventricle): Code(s): I51.7 - Cardiomegaly (5) Hypertension, essential: Code(s): I10 - Essential (primary) hypertension (6) On warfarin therapy: Code(s): Z79.01 - senior living (current) use of anticoagulants (7) CVA (cerebral vascular accident): Code(s): I63.9 - Cerebral infarction, unspecified Qualifiers: CVA mechanism: embolism Precerebral and cerebral artery: unspecified cerebral artery Qualified Code(s): I63.40 - Cerebral infarction due to embolism of unspecified cerebral artery (8) Alcoholic peripheral neuropathy: Code(s): G62.1 - Alcoholic polyneuropathy (9) Paresthesia of left lower extremity: Code(s): R20.2 - Paresthesia of skin (10) Alcoholism: Code(s): F10.20 - Alcohol dependence, uncomplicated Plan Patient is a 68-year-old gentleman with history of stroke See neurologist last year currently taking warfarin He is complaining of numbness left big toe Patient have a long history of alcohol consumption, he tells me that he has cut down from past Currently drinking 6 pack of beer every weekend and wine at least 2 times a week. Patient had Cardiology visit in October when his loop recorder was removed, no atrial ventricular arrhythmia was recorded as a cause of stroke, he does have enlarged right ventricle He is questioning whether he should continue with warfarin I have told him to discuss it further with the Neurology, there is a questionable history of seizures as well however he is not taking any medications and has not had any seizures in past 1 year Meanwhile patient is on atenolol 50 mg and atorvastatin 40 mg He goes to warfarin clinic every 5 week for INR check He had a colonoscopy December of this year by Dr. [facility], next 1 will be in 3 years BMI is elevated at 33.9 patient need to lose weight Labs are due today Patient has no appointment scheduled for cardiology I see in his chart He will return in 6 months for follow-up with me Pneumonia and tetanus vaccine was given today. Patient already had COVID and flu vaccine from pharmacy for this season. 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01 - Encounter for general adult medical examination with abnormal findings, Z79.01 - senior living (current) use of anticoagulants Comprehensive Met. Panel Today E78.9 - Disorder of lipoprotein metabolism, unspecified, I10 - Essential (primary) hypertension, I51.7 - Cardiomegaly, I63.9 - Cerebral infarction, unspecified, R56.9 - Unspecified convulsions, Z00.01 - Encounter for general adult medical examination with abnormal findings, Z79.01 - senior living (current) use of anticoagulants LDL Cholesterol Direct Today E78.9 - Disorder of lipoprotein metabolism, unspecified, I10 - Essential (primary) hypertension, I51.7 - Cardiomegaly, I63.9 - Cerebral infarction, unspecified, R56.9 - Unspecified convulsions, Z00.01 - Encounter for general adult medical examination with abnormal findings, Z79.01 - senior living (current) use of anticoagulants Pneumococcal 20 Immunization Today Z23 - Encounter for immunization TDaP Immunization Today Z23 - Encounter for immunization Coding Level of Care Code Est Pt Prev Care >65y(29483) Diagnoses Encounter for general adult medical examination with abnormal findings Z00.01 Lipid disorder E78.9 Seizures R56.9 Enlarged RV (right ventricle) I51.7 Hypertension, essential I10 On warfarin therapy Z79.01 Cerebrovascular accident (CVA) due to embolism of cerebral artery I63.40 CVA mechanism: embolism Precerebral and cerebral artery: unspecified cerebral artery 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 Paresthesia of left lower extremity R20.2 Alcoholism F10.20
== END 2023-04-22 11:11 | disposition home or self-care (01) ==
PROVIDERS: Visit Provider Internal Medicine
DX: Z00.00 Encounter for general adult medical examination without abnormal findings (principal); R56.9 Unspecified convulsions; I63.40 Cerebral infarction due to embolism of unspecified cerebral artery; G62.1 Alcoholic polyneuropathy; F10.20 Alcohol dependence, uncomplicated; E78.9 Disorder of lipoprotein metabolism, unspecified; I51.7 Cardiomegaly; Z23 Encounter for immunization; I10 Essential (primary) hypertension; Z79.01 Long term (current) use of anticoagulants; R20.2 Paresthesia of skin
CPT/HCPCS: 90471; 90677; 90715; 99397

== ENCOUNTER 2023-04-22 11:13 | Outpatient (REF) | payer MEDICARE, SELFPAY ==
[2023-04-22 13:31] LABS: MANUAL DIFF FLAG NO
[2023-04-22 13:38] LABS: Basophils Absolute Auto 0.1 X10*3/uL (0.0-0.2); Basophils Percent Auto 0.8 % (0-2); Eosinophils Absolute Auto 0.3 X10*3/uL (0.0-0.4); Eosinophils Percent Auto 4.4 % (0-4); Hematocrit 47.2 % (42.0-52.0); Hemoglobin 15.5 g/dl (14.0-18.0); Imm Gran Abs Auto 0.02 X10*3/uL (0.00-0.03); Imm Gran Pct Auto 0.3 % (0.0-0.4); Lymphocytes Absolute Auto 1.7 X10*3/uL (1.2-4.9); Lymphocytes Percent Auto 27.1 % (20-40); Mean Corpuscular HGB Conc 32.8 g/dl (31.0-36.0); Mean Corpuscular Hemoglobin 29.4 pg (27.0-33.0); Mean Corpuscular Volume 89.4 fL (80.0-98.0); Mean Platelet Volume 11.5 fL (9.4-12.4); Monocytes Absolute Auto 0.6 X10*3/uL (0.1-1.2); Monocytes Percent Auto 9.6 % (2-11); Neutrophils Absolute Auto 3.6 x10*3/uL (2.0-8.3); Neutrophils Percent Auto 57.8 % (45-73); Platelet Count 201 X10*3/uL (160-400); Red Blood Count 5.28 X10*6/uL (4.60-5.80); Red Cell Distribution Width 12.8 % (11.0-16.0); White Blood Count 6.2 X10*3/uL (4.8-10.8)
[2023-04-22 14:06] LABS: Alanine Aminotransferase 18 U/L (0-40); Albumin Level 4.2 g/dL (3.5-5.0); Alkaline Phosphatase 55 U/L (39-117); Anion Gap 11 (12-20); Aspartate Amino Transferase 20 U/L (5-37); Bilirubin Total 0.9 mg/dL (0.0-1.0); Blood Urea Nitrogen 16 mg/dL (9-16); Calcium 9.7 mg/dL (8.4-10.2); Carbon Dioxide 27 mmol/L (22-29); Chloride 108 mmol/L (96-108); Estimated Glomerular Filt Rate > 60; Glucose Random 100 mg/dL (60-115); Potassium 4.4 mmol/L (3.3-5.1); Sodium 142 mmol/L (135-145)
[2023-04-22 14:29] LABS: TSH reflex Free T4 1.19 uIU/mL (0.32-4.0)
[2023-04-25 15:43] LABS: Vitamin D 25-OH, D2 <4 ng/mL; Vitamin D 25-OH, D3 33 ng/mL; Vitamin D 25-OH, Total 33 ng/mL (30-100)
[2023-04-27 19:05] LABS: LDL Cholesterol Direct 86 mg/dL (<100)
== END 2023-04-22 11:14 | disposition home or self-care (01) ==
LOC: HO.HMGCLDS 11:13
PROVIDERS: PCP Internal Medicine; Visit Provider Internal Medicine
DX: Z00.01 Encounter for general adult medical examination with abnormal findings (principal); E78.9 Disorder of lipoprotein metabolism, unspecified; R56.9 Unspecified convulsions; I51.7 Cardiomegaly; I10 Essential (primary) hypertension; Z79.01 Long term (current) use of anticoagulants; Z86.73 Personal history of transient ischemic attack (TIA), and cerebral infarction without residual deficits
CPT/HCPCS: 36415; 80053; 82306; 83721; 84443; 85025

== ENCOUNTER 2023-05-26 09:30 | Outpatient (AMB) | payer MEDICARE, SELFPAY ==
[2023-05-26 09:46] LABS: Prothrombin Time Whole Bld POC 37.9 sec (11.1-13.5); ~PT, ~INR - Anti Coag Clinic 3.2 (0.9-1.1)
--- NOTE | 2023-05-26 09:52 | MHC.OFFVISCO ---
Intake Intake Visit Reasons: Anticoagulation Allergies hydrochlorothiazide Allergy (Unknown, Verified 05/26/23 09:37) muscle stiffness Medication List - Last Reconciled 05/26/23 by Cherie Gallegos RN atenolol 50 mg PO DAILY 90 days atenolol-chlorthalidone 50-25 mg 1 tab PO DAILY atorvastatin 40 mg PO BEDTIME warfarin See Protocol one to two tablets based on INR level PO daily; dosing to be adjusted as instructed by Anticoagulation Clinic Nursing Note INR: 3.2almost in therapeutic range, had RSV Vaccine 2 weeks ago , and dental work recently Medications and supplements reviewed No changes in health, diet, medications, or supplements, Denies any signs and symptoms of bleeding or bruising or clotting. Bleeding, bruising, clotting discussed Nutritional guidance given - cooked greens lower your INR more than raw Dose: keep same dose and eat cooked greens today / 10mg sun/ 7.5mg x 6 days F/U INR: 1 month Patient verbalizes understanding of instructions given Anti-Coag Initial Assessment Social Hx Patient Tobacco Use Status: Former Tobacco user Quit Date: 1999 Tobacco use type: Cigarette alcohol intake: current Alcohol intake frequency: a few times a week Cardiovascular Hx: HTN and Other (enlarged right ventricle) Blood Disorder Hx: Hyperlipidemia Hx: Prostate and Other (urinary frequency) Neurological Hx: Epilepsy/Seizures and Stroke/TIA Cancer HX: No Psych. Illness/Depression: No Coding Level of Care Code Est Patient Level 1 Diagnoses Current use of anticoagulant therapy Z79.01 Assessment & Plan Assessment & Plan (1) Current use of anticoagulant therapy: Code(s): Z79.01 - retirement (current) use of anticoagulants Category: Medical
== END 2023-05-26 09:52 | disposition home or self-care (01) ==
LOC: HO.ACS 09:30
PROVIDERS: PCP Internal Medicine; Visit Provider Internal Medicine
DX: Z79.01 Long term (current) use of anticoagulants (principal)

== ENCOUNTER → 2023-05-26 09:30 | Outpatient (BNVA) | payer MEDICARE, SELFPAY | PROVIDERS: PCP Internal Medicine; Visit Provider Internal Medicine | DX: Z86.73 Personal history of transient ischemic attack (TIA), and cerebral infarction without residual deficits (principal); Z79.01 Long term (current) use of anticoagulants; Z51.81 Encounter for therapeutic drug level monitoring | CPT/HCPCS: 85610; 99211 ==

== ENCOUNTER 2023-06-30 09:32 | Outpatient (AMB) | payer MEDICARE, SELFPAY ==
--- NOTE | 2023-06-30 09:42 | MHC.OFFVISCO ---
Intake Intake Visit Reasons: Anticoagulation Allergies hydrochlorothiazide Allergy (Unknown, Verified 06/30/23 09:32) muscle stiffness Medication List - Last Reconciled 06/30/23 by Aleah Trevino RN atenolol-chlorthalidone 50-25 mg 1 tab PO DAILY atorvastatin 40 mg PO BEDTIME warfarin See Protocol one to two tablets based on INR level PO daily; dosing to be adjusted as instructed by Anticoagulation Clinic Nursing Note INR 3.7-?? out of therapeutic range of 2-3 Medications and supplements reviewed Patient status: no c.o, pt states had less greens, had etoh Medications or supplements: elev BP- now taking atenolol chlorthalidone- had prev been on atenolol 50mg dly Diet: same Denies any signs and symptoms of bleeding or clotting or unusual bruising Bleeding, bruising, clotting discussed Nutritional guidance given: eat greens to lower inr, no reds for 2 days Dose: hold today then cont reg 7.5mg x 6, 10mg x 1 F/U INR Date : 2 weeks Patient and spouse verbalizing understanding of instructions given. pt questioning duration of treatment with warfarin- instructed to discuss with pcp Anti-Coag Initial Assessment Social Hx Patient Tobacco Use Status: Former Tobacco user Quit Date: 1999 Tobacco use type: Cigarette alcohol intake: current Alcohol intake frequency: a few times a week Cardiovascular Hx: HTN and Other (enlarged right ventricle) Blood Disorder Hx: Hyperlipidemia Hx: Prostate and Other (urinary frequency) Neurological Hx: Epilepsy/Seizures and Stroke/TIA Cancer HX: No Psych. 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
[2023-06-30 09:43] LABS: Prothrombin Time Whole Bld POC 44.1 sec (11.1-13.5); ~PT, ~INR - Anti Coag Clinic 3.7 (0.9-1.1)
== END 2023-06-30 09:57 | disposition home or self-care (01) ==
LOC: HO.ACS 09:32
PROVIDERS: PCP Internal Medicine; Visit Provider Internal Medicine
DX: Z79.01 Long term (current) use of anticoagulants (principal)

== ENCOUNTER → 2023-06-30 09:32 | Outpatient (BNVA) | payer MEDICARE, SELFPAY | PROVIDERS: PCP Internal Medicine; Visit Provider Internal Medicine | DX: Z86.73 Personal history of transient ischemic attack (TIA), and cerebral infarction without residual deficits (principal); Z79.01 Long term (current) use of anticoagulants; Z51.81 Encounter for therapeutic drug level monitoring | CPT/HCPCS: 85610; 99211 ==

== ENCOUNTER 2023-07-14 09:25 | Outpatient (AMB) | payer MEDICARE, SELFPAY ==
[2023-07-14 09:34] LABS: Prothrombin Time Whole Bld POC 35.5 sec (11.1-13.5)
--- NOTE | 2023-07-14 09:44 | MHC.OFFVISCO ---
Intake Intake Visit Reasons: Anticoagulation Allergies hydrochlorothiazide Allergy (Unknown, Verified 07/14/23 09:27) muscle stiffness Medication List - Last Reconciled 07/14/23 by Freda Baker RN atenolol-chlorthalidone 50-25 mg 1 tab PO DAILY atorvastatin 40 mg PO BEDTIME warfarin See Protocol one to two tablets based on INR level PO daily; dosing to be adjusted as instructed by Anticoagulation Clinic Nursing Note INR: [3.0] in therapeutic range Medications and supplements reviewed No changes in health, diet, medications, or supplements, Denies any signs and symptoms of unusual bleeding or bruising or clotting. Bleeding, bruising, clotting discussed Nutritional guidance given Pt states he has been eating pistachios and broccoli and chocolate Dose: Keep same dosing, 10 mg x1 day/7.5 mg x6 days F/U INR: [1 month per pt request] Patient verbalizes understanding of instructions given Anti-Coag Initial Assessment Social Hx Patient Tobacco Use Status: Former Tobacco user Quit Date: 1999 Tobacco use type: Cigarette alcohol intake: current Alcohol intake frequency: a few times a week Cardiovascular Hx: HTN and Other (enlarged right ventricle) Blood Disorder Hx: Hyperlipidemia Hx: Prostate and Other (urinary frequency) Neurological Hx: Epilepsy/Seizures and Stroke/TIA Cancer HX: No Psych. 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
== END 2023-07-14 09:49 | disposition home or self-care (01) ==
LOC: HO.ACS 09:25
PROVIDERS: PCP Internal Medicine; Visit Provider Internal Medicine
DX: Z79.01 Long term (current) use of anticoagulants (principal)

== ENCOUNTER → 2023-07-14 09:25 | Outpatient (BNVA) | payer MEDICARE, SELFPAY | PROVIDERS: PCP Internal Medicine; Visit Provider Internal Medicine | DX: Z86.73 Personal history of transient ischemic attack (TIA), and cerebral infarction without residual deficits (principal); Z79.01 Long term (current) use of anticoagulants; Z51.81 Encounter for therapeutic drug level monitoring | CPT/HCPCS: 85610; 99211 ==

== ENCOUNTER 2023-08-11 09:27 | Outpatient (AMB) | payer MEDICARE, SELFPAY ==
--- NOTE | 2023-08-11 09:40 | MHC.OFFVISCO ---
Intake Intake Visit Reasons: Anticoagulation Allergies hydrochlorothiazide Allergy (Unknown, Verified 08/11/23 09:36) muscle stiffness Medication List - Last Reconciled 08/11/23 by Aleah Trevino RN atenolol-chlorthalidone 50-25 mg 1 tab PO DAILY atorvastatin 40 mg PO BEDTIME warfarin See Protocol one to two tablets based on INR level PO daily; dosing to be adjusted as instructed by Anticoagulation Clinic Nursing Note INR: 2.7- in therapeutic range of 2-3 Medications and supplements reviewed No changes in health, diet, medications, or supplements, Denies any signs and symptoms of bleeding or bruising or clotting. Bleeding, bruising, clotting discussed Nutritional guidance given Dose: 10mg x 1. 7.5 mg x 6 F/U INR: approx 5 weeks Patient verbalizes understanding of instructions given Anti-Coag Initial Assessment Social Hx Patient Tobacco Use Status: Former Tobacco user Quit Date: 1999 Tobacco use type: Cigarette alcohol intake: current Alcohol intake frequency: a few times a week Cardiovascular Hx: HTN and Other (enlarged right ventricle) Blood Disorder Hx: Hyperlipidemia Hx: Prostate and Other (urinary frequency) Neurological Hx: Epilepsy/Seizures and Stroke/TIA Cancer HX: No Psych. 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
[2023-08-11 09:41] LABS: Prothrombin Time Whole Bld POC 32.1 sec (11.1-13.5); ~PT, ~INR - Anti Coag Clinic 2.7 (0.9-1.1)
== END 2023-08-11 09:57 | disposition home or self-care (01) ==
LOC: HO.ACS 09:27
PROVIDERS: PCP Internal Medicine; Visit Provider Internal Medicine
DX: Z79.01 Long term (current) use of anticoagulants (principal)

== ENCOUNTER → 2023-08-11 09:27 | Outpatient (BNVA) | payer MEDICARE, SELFPAY | PROVIDERS: PCP Internal Medicine; Visit Provider Internal Medicine | DX: Z86.73 Personal history of transient ischemic attack (TIA), and cerebral infarction without residual deficits (principal); Z79.01 Long term (current) use of anticoagulants; Z51.81 Encounter for therapeutic drug level monitoring | CPT/HCPCS: 85610; 99211 ==

== ENCOUNTER 2023-09-04 13:39 | Outpatient (AMB) | payer MEDICARE, SELFPAY ==
[2023-09-04 13:40] VITALS: BP 126/74; PULSE 56; O2SAT 96; BMI 34.0
--- NOTE | 2023-09-04 13:40 | A.OFFPC_ITS ---
Vital Signs 3 09/04/23 13:40 Height 6 ft Weight 250 lb 8 oz BMI 34.0 BP 126/74 Blood Pressure Location Rt brachial Position Sitting Pulse 56 Pulse Source Pulse Oximeter Pulse Oximetry (%) 96 Oxygen Delivery Method Room Air Intake Visit Reasons: lump on left knee Allergies hydrochlorothiazide Allergy (Unknown, Verified 09/04/23 13:40) muscle stiffness Tobacco use date assessed: 09/04/23 Fall risk assessment: No Falls in past year Last assessed Fall Risk: 09/04/23 Dental Screening Dental Screen Date: 09/04/23 Did you have a dental visit in the last 12 months?: Yes Did you have a dental problem in the last 6 months where you did not have access to dental care?: No Was dental information given to patient?: Patient has dentist HPI lump on left knee 2 HPI0 Details Patient is 68-year-old gentleman came in today to be evaluated for pain and swelling left knee for the past 3 days Patient is a very active he bicycle and so I am as well He has osteoarthritis in his knee, he had right knee replacement about 8 years ago On examination he does have slight amount of fluid in his left knee range of motion is intact Said that since yesterday it is feeling much better. Patient will take a leave as needed I have ordered x-ray of his knee, at this time he does not want any intervention. [facility] Medical History BPH (benign prostatic hyperplasia) CVA (cerebral vascular accident) Hypertension, essential Surgical History History of esophagogastroduodenoscopy (EGD) Hx of colonoscopy History of total right knee replacement Family History Father Stomach cancer Paternal Grandfather Stomach cancer Social History Household Members: Spouse Housing: House Alcohol intake: current Alcohol intake frequency: a few times a week Patient Tobacco Use Status: Former Tobacco user Quit Date: 1999 Tobacco use type: Cigarette Years Smoked: 30 +/- e-Cigarette/Vaping Use: Never Used Substance Use Type: Marijuana service: No Current occupational status: employed and retired 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 How often do you have a drink containing alcohol?: Monthly or less 2. How many drinks containing alcohol do you have on a typical day when you are drinking?: 1 or 2 3. How often do you have six or more drinks on one occasion?: Never Total Score: 1 WYATT-7 AMB Questionnaire WYATT-7 Date WYATT - 7 assessed: 08/30/21 Source: Developed by Drs. José Miguel Fischer, Katya Green, Kin Doan and colleagues, with an educational willi from [employer]. Review of Systems Const All systems reviewed & are unremarkable except as noted in HPI and below Physical exam (Primary Care) Vital Signs: Last Vital Signs Pulse 56 09/04/23 13:40 BP 126/74 09/04/23 13:40 Pulse Ox 96 09/04/23 13:40 Oxygen Delivery Method Room Air 09/04/23 13:40 BMI result Body Mass Index 34.0 Tobacco/Smoking Status: Tobacco use Status Tobacco use date assessed 09/04/23 09/04/23 13:42 Patient Tobacco Use Status Former Tobacco user 09/04/23 13:42 Tobacco use type Cigarette 09/04/23 13:42 e-Cigarette/Vaping Use Never Used 09/04/23 13:42 Thrive Assessment: Date of Thrive Assessment Date Thrive assessed 08/30/21 09/04/23 13:42 Const General: no acute distress Orientation/consciousness: patient oriented x3 Eyes General: appearance normal, both eyes and all related structures Resp Effort & Inspection: normal respiratory effort and able to speak in complete sentences Auscultation: clear to auscultation bilaterally Neuro General: patient oriented x3 Extrem Elbow/forearm/wrist images: 2 1. Mild swelling of knee, range of motion is intact, no skin changes, no pain behind the knee Psych Mental Status: mental status grossly normal Assessment and Plan Assessment & Plan (1) Swelling of left knee joint: Code(s): M25.462 - Effusion, left knee (2) Pain in left knee: Code(s): M25.562 - Pain in left knee Qualifiers: Chronicity: acute Qualified Code(s): M25.562 - Pain in left knee Plan Patient is 68-year-old gentleman came in today to be evaluated for pain and swelling left knee for the past 3 days Patient is a very active he bicycle and so I am as well He has osteoarthritis in his knee, he had right knee replacement about 8 years ago On examination he does have slight amount of fluid in his left knee range of motion is intact Said that since yesterday it is feeling much better. Patient will take a leave as needed I have ordered x-ray of his knee, at this time he does not want any intervention. Orders: Orders 2 XR knee LT 2V Today M25.462 - Effusion, left knee, M25.562 - Pain in left knee Coding Level of Care Code Est Pt Level 3 (39146) Diagnoses Swelling of left knee joint M25.462 Acute pain of left knee M25.562 Chronicity: acute
== END 2023-09-04 14:22 | disposition home or self-care (01) ==
PROVIDERS: PCP Internal Medicine; Visit Provider Internal Medicine
DX: M25.462 Effusion, left knee (principal); M25.562 Pain in left knee
CPT/HCPCS: 99213

== ENCOUNTER 2023-09-04 13:58 | Outpatient (REF) | payer MEDICARE, SELFPAY ==
--- NOTE | ~2023-09-04 | XR_ITS ---
EXAMINATION: XR KNEE, LEFT CLINICAL INFORMATION: Left knee effusion COMPARISON: None TECHNIQUE: Four views of the left knee. FINDINGS: There is a joint effusion present. There is patellofemoral degenerative lipping and also findings which suggest a bipartite patella versus sequela of previous injury. There is degenerative change in the medial and lateral joint space with meniscal calcifications. Tibial spine spurring is also noted here. On the lateral image small bony density posterior to the tibial plateau could represent dystrophic calcification. Small avulsion fracture cannot be excluded. XR/XR knee LT 4V IMPRESSION: Findings as described above. Moderate degenerative changes and meniscal calcifications. There is a small joint fluid present. Correlation recommended clinically. Recommend MR for full evaluation
== END 2023-09-04 13:59 | disposition home or self-care (01) ==
LOC: HO.HMGCX 13:58
PROVIDERS: PCP Internal Medicine; Visit Provider Internal Medicine
DX: M25.462 Effusion, left knee (principal); M25.562 Pain in left knee
CPT/HCPCS: 73564

== ENCOUNTER 2023-09-15 09:27 | Outpatient (AMB) | payer MEDICARE, SELFPAY ==
[2023-09-15 09:41] LABS: Prothrombin Time Whole Bld POC 48.9 sec (11.1-13.5); ~PT, ~INR - Anti Coag Clinic 4.1 (0.9-1.1)
--- NOTE | 2023-09-15 09:58 | MHC.OFFVISCO ---
Intake Intake Visit Reasons: Anticoagulation Allergies hydrochlorothiazide Allergy (Unknown, Verified 09/15/23 09:36) muscle stiffness Nursing Note INR 4.1?out of therapeutic range of 2-3 Medications and supplements reviewed: no changes Patient status: no changes Medications or supplements: no changes Diet: pt not sure what he ate that may have raised his INR Denies any signs and symptoms of bleeding or clotting or unusual bruising Bleeding, bruising, clotting discussed and pt aware he is at risk for bleeding Nutritional guidance given: to have greens today and tomorrow then to balance reds and greens. Food list reviewed and given to pt. Dose: HOLD today's dose of 7.5mg then cont usual dose of 7.5mg X6 days and 10mg X 1 day (Thursday) F/U INR Date : 2 weeks?? Patient verbalizing understanding of instructions given. Anti-Coag Initial Assessment Social Hx Patient Tobacco Use Status: Former Tobacco user Quit Date: 1999 Tobacco use type: Cigarette alcohol intake: current Alcohol intake frequency: a few times a week Cardiovascular Hx: HTN and Other (enlarged right ventricle) Blood Disorder Hx: Hyperlipidemia Hx: Prostate and Other (urinary frequency) Neurological Hx: Epilepsy/Seizures and Stroke/TIA Cancer HX: No Psych. Illness/Depression: No Coding Level of Care Code Est Patient Level 1 Diagnoses Current use of anticoagulant therapy Z79.01 Assessment & Plan Assessment & Plan (1) Current use of anticoagulant therapy: Code(s): Z79.01 - nursing home (current) use of anticoagulants Category: Medical
== END 2023-09-15 10:06 | disposition home or self-care (01) ==
LOC: HO.ACS 09:27
PROVIDERS: PCP Internal Medicine; Visit Provider Internal Medicine
DX: Z79.01 Long term (current) use of anticoagulants (principal)

== ENCOUNTER → 2023-09-15 09:27 | Outpatient (BNVA) | payer MEDICARE, SELFPAY | PROVIDERS: PCP Internal Medicine; Visit Provider Internal Medicine | DX: Z86.73 Personal history of transient ischemic attack (TIA), and cerebral infarction without residual deficits (principal); Z51.81 Encounter for therapeutic drug level monitoring; Z79.01 Long term (current) use of anticoagulants | CPT/HCPCS: 85610; 99211 ==

== ENCOUNTER 2023-09-29 09:42 | Outpatient (AMB) | payer MEDICARE, SELFPAY ==
[2023-09-29 09:54] LABS: Prothrombin Time Whole Bld POC 43.8 sec (11.1-13.5); ~PT, ~INR - Anti Coag Clinic 3.7 (0.9-1.1)
--- NOTE | 2023-09-29 10:01 | MHC.OFFVISCO ---
Intake Intake Visit Reasons: Anticoagulation Allergies hydrochlorothiazide Allergy (Unknown, Verified 09/29/23 09:46) muscle stiffness Medication List - Last Reconciled 09/29/23 by Freda Baker RN atenolol-chlorthalidone 50-25 mg 1 tab PO DAILY atorvastatin 40 mg PO BEDTIME warfarin See Protocol one to two tablets based on INR level PO daily; dosing to be adjusted as instructed by Anticoagulation Clinic Nursing Note INR 3.7?out of therapeutic range od 2-3 Medications and supplements reviewed: no changes Patient status: no changes, feels well Medications or supplements: same Diet: has tried to increase greens Denies any signs and symptoms of bleeding or clotting or unusual bruising Bleeding, bruising, clotting discussed Nutritional guidance given: to have a serving of greens today and tomorrow Dose: hold today and then usual dose of 10mg X 1 day and 7.5mg X6 days F/U INR Date : 2 weeks but pt requested 3 weeks?? Patient verbalizing understanding of instructions given. Anti-Coag Initial Assessment Social Hx Patient Tobacco Use Status: Former Tobacco user Quit Date: 1999 Tobacco use type: Cigarette alcohol intake: current Alcohol intake frequency: a few times a week Cardiovascular Hx: HTN and Other (enlarged right ventricle) Blood Disorder Hx: Hyperlipidemia Hx: Prostate and Other (urinary frequency) Neurological Hx: Epilepsy/Seizures and Stroke/TIA Cancer HX: No Psych. Illness/Depression: No Coding Level of Care Code Est Patient Level 1 Diagnoses Current use of anticoagulant therapy Z79.01 Assessment & Plan Assessment & Plan (1) Current use of anticoagulant therapy: Code(s): Z79.01 - alf (current) use of anticoagulants Category: Medical
== END 2023-09-29 10:04 | disposition home or self-care (01) ==
LOC: HO.ACS 09:42
PROVIDERS: PCP Internal Medicine; Visit Provider Internal Medicine
DX: Z79.01 Long term (current) use of anticoagulants (principal)

== ENCOUNTER → 2023-09-29 09:42 | Outpatient (BNVA) | payer MEDICARE, SELFPAY | PROVIDERS: PCP Internal Medicine; Visit Provider Internal Medicine | DX: Z86.73 Personal history of transient ischemic attack (TIA), and cerebral infarction without residual deficits (principal); Z79.01 Long term (current) use of anticoagulants; Z51.81 Encounter for therapeutic drug level monitoring | CPT/HCPCS: 85610; 99211 ==

== ENCOUNTER 2023-10-19 09:48 | Outpatient (AMB) | payer MEDICARE, SELFPAY ==
--- NOTE | 2023-10-19 09:53 | MHC.OFFVISCO ---
Intake Intake Visit Reasons: Anticoagulation Allergies hydrochlorothiazide Allergy (Unknown, Verified 10/19/23 09:49) muscle stiffness Medication List - Last Reconciled 10/19/23 by Aleah Trevino RN atenolol-chlorthalidone 50-25 mg 1 tab PO DAILY atorvastatin 40 mg PO BEDTIME warfarin See Protocol one to two tablets based on INR level PO daily; dosing to be adjusted as instructed by Anticoagulation Clinic Nursing Note INR 4.0-?? out of therapeutic range of 2-3 Medications and supplements reviewed Patient status: pt unsure why inr elev, denies tylenol usage, etoh, new medication and stress Medications or supplements: no changes Diet: appetite good Denies any signs and symptoms of bleeding or clotting or unusual bruising Bleeding, bruising, clotting discussed Nutritional guidance given: eat greens to lower, no reds for 3 days Dose: hold today then reduce weekly dosing to 7.5mg x 7 F/U INR Date : 2 weeks? Patient and verbalizing understanding of instructions given. Anti-Coag Initial Assessment Social Hx Patient Tobacco Use Status: Former Tobacco user Quit Date: 1999 Tobacco use type: Cigarette alcohol intake: current Alcohol intake frequency: a few times a week Cardiovascular Hx: HTN and Other (enlarged right ventricle) Blood Disorder Hx: Hyperlipidemia Hx: Prostate and Other (urinary frequency) Neurological Hx: Epilepsy/Seizures and Stroke/TIA Cancer HX: No Psych. 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
[2023-10-19 09:55] LABS: Prothrombin Time Whole Bld POC 48.2 sec (11.1-13.5)
== END 2023-10-19 10:01 | disposition home or self-care (01) ==
LOC: HO.ACS 09:48
PROVIDERS: PCP Internal Medicine; Visit Provider Internal Medicine
DX: Z79.01 Long term (current) use of anticoagulants (principal)

== ENCOUNTER → 2023-10-19 09:48 | Outpatient (BNVA) | payer MEDICARE, SELFPAY | PROVIDERS: PCP Internal Medicine; Visit Provider Internal Medicine | DX: Z95.2 Presence of prosthetic heart valve (principal); Z51.81 Encounter for therapeutic drug level monitoring; Z79.01 Long term (current) use of anticoagulants | CPT/HCPCS: 85610; 99211 ==

== ENCOUNTER 2023-10-20 08:39 | Outpatient (AMB) | payer MEDICARE, SELFPAY ==
[2023-10-20 08:45] VITALS: BP 130/80; PULSE 50; O2SAT 96; BMI 33.8
--- NOTE | 2023-10-20 08:45 | A.OFFPC_ITS ---
Vital Signs 3 10/20/23 08:45 Height 6 ft Weight 249 lb BMI 33.8 BP 130/80 Blood Pressure Location Lt brachial Position Sitting Pulse 50 Pulse Source Pulse Oximeter Pulse Oximetry (%) 96 Oxygen Delivery Method Room Air Intake Visit Reasons: 6 month fu Allergies hydrochlorothiazide Allergy (Unknown, Verified 10/20/23 08:46) muscle stiffness Medication List - Last Reconciled 10/20/23 by Ronal Marino MD atenolol-chlorthalidone 50-25 mg 1 tab PO DAILY atorvastatin 40 mg PO BEDTIME warfarin See Protocol one to two tablets based on INR level PO daily; dosing to be adjusted as instructed by Anticoagulation Clinic Tobacco use date assessed: 10/20/23 Fall risk assessment: No Falls in past year Last assessed Fall Risk: 10/20/23 Dental Screening Dental Screen Date: 10/20/23 Did you have a dental visit in the last 12 months?: No Did you have a dental problem in the last 6 months where you did not have access to dental care?: No Was dental information given to patient?: No HPI 6 month fu 2 HPI0 Details Patient is a 68-year-old gentleman with history of stroke On lifelong warfarin, no longer seeing neurologist no more seizures Patient have alcoholic neuropathy left foot which is stable at this time No longer drinking alcohol History of atrial ventricular arrhythmia was recorded on loop recorder through Cardiology as a cause of stroke, he does have enlarged right ventricle I see that he does not have any appointment with medical billing representative Patient says that he does not need to see 1 he feels fine Meanwhile patient is on atenolol 50 mg chlorthalidone 25 mg and atorvastatin 40 mg He goes to warfarin clinic every 5 week for INR check Colonoscopy will be in [address] [facility] [address] [facility] BMI is elevated he does exercise regularly However due to pain in his left knee he has not been able to He has appointment coming up with orthopedic Labs are due today Follow-up 4 months [facility] Medical History BPH (benign prostatic hyperplasia) CVA (cerebral vascular accident) Hypertension, essential Surgical History History of esophagogastroduodenoscopy (EGD) Hx of colonoscopy History of total right knee replacement Family History Father Stomach cancer Paternal Grandfather Stomach cancer Social History Household Members: Spouse Housing: House Alcohol intake: current Alcohol intake frequency: a few times a week Patient Tobacco Use Status: Former Tobacco user Quit Date: 1999 Tobacco use type: Cigarette Years Smoked: 30 +/- e-Cigarette/Vaping Use: Never Used Substance Use Type: Marijuana service: No Current occupational status: employed and retired 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 1. Little interest or pleasure in doing things: not at all 2. Feeling down, depressed, or hopeless: not at all 3. Trouble falling or staying asleep, or sleeping too much: not at all 4. Feeling tired or having little energy: not at all 5. Poor appetite or overeating: not at all 6. Feeling bad about yourself - or that you are a failure or have let yourself or your family down: not at all 7. Trouble concentrating on things, such as reading the newspaper or watching television: not at all 8. Moving or speaking so slowly that other people could have noticed. Or the opposite - being so fidgety or restless that you have been moving around a lot more than usual: not at all 9. Thoughts that you would be better off or of hurting yourself in some way: not at all Total score: 0 Depression Screening Interpretation: Negative Depression Screening Done: Yes 32965 - PHQ-9 Billing: Yes Source: Developed by Drs. José Miguel Fischer, Katya Green, Kin Doan and colleagues, with an educational willi from [employer]. Thrive Questionnaire Date Thrive assessed: 10/20/23 I am a: Patient What is your living situation today?: I have a steady place to live Within the past 12 months, did the food you bought not last and you didn't have the money to get more?: Never true Within the past 12 months, did you worry whether your food would run out before you got money to buy more?: Never true Do you have trouble paying for medicines?: No Do you have trouble getting transportation to medical appointments?: No Do you have trouble paying your heating and electricity bill?: No Do you have trouble taking care of your child, family member or friend?: No Do you have trouble with day-to-day activities such as bathing, preparing meals, shopping, managing finances, etc.?: No Are you currently unemployed and looking for a job?: No Are you interested in more education?: No Please select the resources that you would like help with: None Currently or been in a relationship where the following occur: no concerns reported THRIVE Score: 0 AUDIT C Alcohol Use Questionnaire (AUDIT-C) 1. How often do you have a drink containing alcohol?: Monthly or less 2. How many drinks containing alcohol do you have on a typical day when you are drinking?: 1 or 2 3. How often do you have six or more drinks on one occasion?: Never Total Score: 1 Score Reviewed/Action Taken: Yes WYATT-7 AMB Questionnaire WYATT-7 Date WYATT - 7 assessed: 10/20/23 Feeling nervous, anxious, or on edge: 0 = Not at all Not being able to stop or control worryin = Not at all Worrying too much about different things: 0 = Not at all Trouble relaxin = Not at all Being so restless that it is hard to sit still: 0 = Not at all Becoming easily annoyed or irritable: 0 = Not at all Feeling afraid as if something awful might happen: 0 = Not at all Total WYATT-7 score (0-4 normal; 5-9 mild; 10-14 moderate; 15-21 severe): 0 Source: Developed by Drs. José Miguel Fischer, Katya Green, Kin Doan and colleagues, with an educational willi from [employer]. WYATT-7 Assessment Billing WYATT-7 Assessment Tool: WYATT-7 Assessment 65195 Review of Systems Const Denies chills and Denies fever(s) ENT Denies epistaxis and Denies nasal discharge Card Denies chest pain Resp Denies chest congestion, Denies cough and Denies hemoptysis GI Denies diarrhea and Denies nausea Skin/Breast Denies rash Neuro Reports no additional complaints Psych Reports no additional complaints Endo Reports no additional complaints Physical exam (Primary Care) Vital Signs: Last Vital Signs Pulse 50 10/20/23 08:45 BP 130/80 10/20/23 08:45 Pulse Ox 96 10/20/23 08:45 Oxygen Delivery Method Room Air 10/20/23 08:45 BMI result Body Mass Index 33.8 Tobacco/Smoking Status: Tobacco use Status Tobacco use date assessed 10/20/23 10/20/23 08:48 Patient Tobacco Use Status Former Tobacco user 10/20/23 08:48 Tobacco use type Cigarette 10/20/23 08:48 e-Cigarette/Vaping Use Never Used 10/20/23 08:48 PHQ-9: PHQ-9 Score PHQ-9: Total score 0 10/20/23 09:01 Depression Screening Interpretation: Negative Thrive Assessment: Date of Thrive Assessment Date Thrive assessed 10/20/23 10/20/23 08:52 Currently or been in a relationship where the following occur: no concerns reported Const General: cooperative, comfortable and no acute distress Orientation/consciousness: patient oriented x3 HENMT Head: Yes normocephalic Eyes General: appearance normal, both eyes and all related structures Neck Neck: Yes supple Resp Effort & Inspection: normal respiratory effort, no cough and no stridor Cardio Rhythm: regular rhythm Heart sounds: S1 normal heart sound present and S2 normal heart sound present Skin General skin exam: turgor normal Neuro General: patient oriented x3, tone normal and moves all extremities Extrem Elbow/forearm/wrist images: 2 1. Site of pain Right lower extremity: no edema Left lower extremity: no edema Assessment and Plan Assessment & Plan (1) Hypertension, essential: Code(s): I10 - Essential (primary) hypertension (2) Lipid disorder: Code(s): E78.9 - Disorder of lipoprotein metabolism, unspecified (3) Elevated fasting blood sugar: Code(s): R73.01 - Impaired fasting glucose (4) Obesity due to excess calories: Code(s): E66.09 - Other obesity due to excess calories Qualifiers: Body mass index: BMI 33.0-33.9 Obesity classification: adult class 1 (BMI 30 - 34.9) Serious obesity comorbidity presence: with serious comorbidity Qualified Code(s): E66.09 - Other obesity due to excess calories; Z68.33 - Body mass index [BMI] 33.0-33.9, adult (5) On warfarin therapy: Code(s): Z79.01 - group home (current) use of anticoagulants (6) Alcoholic peripheral neuropathy: Code(s): G62.1 - Alcoholic polyneuropathy (7) CVA (cerebral vascular accident): Code(s): I63.9 - Cerebral infarction, unspecified Qualifiers: CVA mechanism: embolism Precerebral and cerebral artery: unspecified cerebral artery Qualified Code(s): I63.40 - Cerebral infarction due to embolism of unspecified cerebral artery Plan Patient is a 68-year-old gentleman with history of stroke On lifelong warfarin, no longer seeing neurologist no more seizures Patient have alcoholic neuropathy left foot which is stable at this time No longer drinking alcohol History of atrial ventricular arrhythmia was recorded on loop recorder through Cardiology as a cause of stroke, he does have enlarged right ventricle I see that he does not have any appointment with medical billing representative Patient says that he does not need to see 1 he feels fine Meanwhile patient is on atenolol 50 mg chlorthalidone 25 mg and atorvastatin 40 mg He goes to warfarin clinic every 5 week for INR check Colonoscopy will be in [address] [facility] [address] [facility] BMI is elevated he does exercise regularly However due to pain in his left knee he has not been able to He has appointment coming up with orthopedic Impaired fasting sugar, diet-controlled Labs are due today Follow-up 4 months Orders: Orders 2 Comprehensive Met. 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 (current) use of anticoagulants Complete Blood Count Auto Diff Today E66.09 - Other obesity due to excess calories, E78.9 - Disorder of lipoprotein metabolism, unspecified, G62.1 - Alcoholic polyneuropathy, I10 - Essential (primary) hypertension, R73.01 - Impaired fasting glucose, Z79.01 - group home (current) use of anticoagulants Coding Level of Care Code Est Pt Level 4 (82165) Complex EM visit Add On G2211 Diagnoses Hypertension, essential I10 Lipid disorder E78.9 Elevated fasting blood sugar R73.01 Class 1 obesity due to excess calories with serious comorbidity and body mass index (BMI) of 33.0 to 33.9 in adult E66.09; Z68.33 Body mass index: BMI 33.0-33.9 Obesity classification: adult class 1 (BMI 30 - 34.9) Serious obesity comorbidity presence: with serious comorbidity On warfarin therapy Z79.01 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 Cerebrovascular accident (CVA) due to embolism of cerebral artery I63.40 CVA mechanism: embolism Precerebral and cerebral artery: unspecified cerebral artery Additional Codes WYATT-7 Assessment Billing - WYATT-7 Assessment Tool: WYATT-7 Assessment [id number] ([id number])
== END 2023-10-20 09:09 | disposition home or self-care (01) ==
PROVIDERS: PCP Internal Medicine; Visit Provider Internal Medicine
DX: I10 Essential (primary) hypertension (principal); G62.1 Alcoholic polyneuropathy; I63.40 Cerebral infarction due to embolism of unspecified cerebral artery; Z68.33 Body mass index [BMI] 33.0-33.9, adult; E78.9 Disorder of lipoprotein metabolism, unspecified; R73.01 Impaired fasting glucose; E66.09 Other obesity due to excess calories; Z79.01 Long term (current) use of anticoagulants
CPT/HCPCS: 99214; G2211

== ENCOUNTER 2023-10-20 09:10 | Outpatient (REF) | payer MEDICARE, SELFPAY ==
[2023-10-20 10:19] LABS: MANUAL DIFF FLAG NO
[2023-10-20 10:29] LABS: Basophils Absolute Auto 0.1 X10*3/uL (0.0-0.2); Basophils Percent Auto 0.8 % (0-2); Eosinophils Absolute Auto 0.3 X10*3/uL (0.0-0.4); Eosinophils Percent Auto 4.1 % (0-4); Hematocrit 45.8 % (42.0-52.0); Hemoglobin 15.8 g/dl (14.0-18.0); Imm Gran Abs Auto 0.02 X10*3/uL (0.00-0.03); Imm Gran Pct Auto 0.3 % (0.0-0.4); Lymphocytes Absolute Auto 1.6 X10*3/uL (1.2-4.9); Lymphocytes Percent Auto 26.3 % (20-40); Mean Corpuscular HGB Conc 34.5 g/dl (31.0-36.0); Mean Corpuscular Hemoglobin 30.5 pg (27.0-33.0); Mean Corpuscular Volume 88.4 fL (80.0-98.0); Mean Platelet Volume 11.4 fL (9.4-12.4); Monocytes Absolute Auto 0.7 X10*3/uL (0.1-1.2); Monocytes Percent Auto 11.2 % (2-11); Neutrophils Absolute Auto 3.5 x10*3/uL (2.0-8.3); Neutrophils Percent Auto 57.3 % (45-73); Platelet Count 209 X10*3/uL (160-400); Red Blood Count 5.18 X10*6/uL (4.60-5.80); Red Cell Distribution Width 12.6 % (11.0-16.0); White Blood Count 6.1 X10*3/uL (4.8-10.8)
[2023-10-20 10:49] LABS: Alanine Aminotransferase 23 U/L (0-40); Albumin Level 4.3 g/dL (3.5-5.0); Alkaline Phosphatase 52 U/L (39-117); Anion Gap 15 (12-20); Aspartate Amino Transferase 24 U/L (5-37); Bilirubin Total 1.3 mg/dL (0.0-1.0); Blood Urea Nitrogen 19 mg/dL (9-16); Calcium 9.8 mg/dL (8.4-10.2); Carbon Dioxide 26 mmol/L (22-29); Chloride 103 mmol/L (96-108); Estimated Glomerular Filt Rate > 60; Glucose Random 142 mg/dL (60-115); Potassium 3.6 mmol/L (3.3-5.1); Sodium 140 mmol/L (135-145); Total Protein 7.1 g/dL (6.5-8.0)
[2023-10-21 09:09] LABS: LDL Cholesterol Direct 86 mg/dL (<100)
== END 2023-10-20 09:11 | disposition home or self-care (01) ==
LOC: HO.HMGCLDS 09:10
PROVIDERS: PCP Internal Medicine; Visit Provider Internal Medicine
DX: E78.9 Disorder of lipoprotein metabolism, unspecified (principal); R73.01 Impaired fasting glucose; E66.09 Other obesity due to excess calories; I10 Essential (primary) hypertension; G62.1 Alcoholic polyneuropathy; Z79.01 Long term (current) use of anticoagulants
CPT/HCPCS: 36415; 80053; 83721; 85025

== ENCOUNTER 2023-10-27 08:56 | Outpatient (AMB) | payer MEDICARE, SELFPAY ==
[2023-10-27 09:05] VITALS: BMI 33.8
--- NOTE | 2023-10-27 09:05 | A.OFFVIS_ITS ---
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 The patient did undergo right total knee replacement surgery approximately 15 years ago. He reports minimal discomfort in his right knee. He describes his left knee pain as sharp in nature. He has had cortisone injections in the past which gave him minimal relief. He has failed the last 6 weeks of conservative treatment. He has done physical therapy exercises which aggravated his pain. Has also tried Tylenol and anti-inflammatory medicines which gave him minimal relief. He would like to hold off on left total knee replacement surgery for as long as possible. Allergies hydrochlorothiazide Allergy (Unknown, Verified 10/27/23 09:13) muscle stiffness Medication List - Last Reconciled 10/27/23 by Dequan Zavala MD atenolol-chlorthalidone 50-25 mg 1 tab PO DAILY atorvastatin 40 mg PO BEDTIME warfarin See Protocol one to two tablets based on INR level PO daily; dosing to be adjusted as instructed by Anticoagulation Clinic [facility] Medical History BPH (benign prostatic hyperplasia) CVA (cerebral vascular accident) Hypertension, essential Surgical History History of esophagogastroduodenoscopy (EGD) Hx of colonoscopy History of total right knee replacement Family History Father Stomach cancer Paternal Grandfather Stomach cancer Social History (Updated 10/27/23 @ 09:14 by Ailin Richards CMA) Household Members: Spouse Housing: House Alcohol intake: current Alcohol intake frequency: a few times a week Patient Tobacco Use Status: Former Tobacco user Quit Date: 1999 Tobacco use type: Cigarette Years Smoked: 30 +/- e-Cigarette/Vaping Use: Never Used Substance Use Type: Marijuana service: No Current occupational status: employed and retired 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, 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 Current occupational exposures/hazards: No Cognitive needs: No Hearing needs: No Vision needs: No Physical Exam Vital Signs: BMI result Body Mass Index 33.8 Const Other: Well-nourished well-developed very friendly male awake alert and oriented x3 in no acute distress Extrem Other: Bilateral lower extremity examination shows good capillary refill, no skin lesions noted, normal sensation light touch Left knee examination shows a minimal effusion, palpable crepitus with range of motion, pain with range of motion, no instability Results Reviewed Results Reviewed: X-rays of the patient's left knee show moderate joint space narrowing, subchondral sclerosis, a bipartite patella, no acute bony abnormalities Assessment & Plan Assessment & Plan (1) Arthritis of left knee: Code(s): M17.12 - Unilateral primary osteoarthritis, left knee Category: Medical Plan Mr. Driscoll presents with left knee pain due to degenerative joint disease. I had a lengthy discussion with the patient regarding the treatment options. He wishes to hold off on left total knee replacement surgery for as long as possible. I agree with this plan. He has not gotten good relief from cortisone injections in the past. Thus, I will see whether not the patient's insurance company will cover a viscosupplementation injection. I will see him back once the injection is available. If he fails continued non operative treatments we will further discuss the risks and benefits of left total knee replacement surgery. Feel free to call me at any time should questions regarding his orthopedic management arise. Thank you very much see this very friendly gentleman. I spent 21 minutes in reviewing the patient's records and imaging studies, seeing the patient and documenting in the medical record. Coding Level of Care Code New Pt Level 2 (97309) Diagnoses Arthritis of left knee M17.12
== END 2023-10-27 09:31 | disposition home or self-care (01) ==
PROVIDERS: PCP Internal Medicine; Visit Provider Orthopaedic Surgery
DX: M17.12 Unilateral primary osteoarthritis, left knee (principal)
CPT/HCPCS: 99203

== ENCOUNTER → 2023-10-27 08:56 | Outpatient (BNVA) | payer MEDICARE, SELFPAY | PROVIDERS: PCP Internal Medicine; Visit Provider Orthopaedic Surgery | DX: M17.12 Unilateral primary osteoarthritis, left knee (principal) | CPT/HCPCS: 99202 ==

== ENCOUNTER 2023-11-02 10:00 | Outpatient (AMB) | payer MEDICARE, SELFPAY ==
[2023-11-02 10:08] LABS: Prothrombin Time Whole Bld POC 41.3 sec (11.1-13.5); ~PT, ~INR - Anti Coag Clinic 3.4 (0.9-1.1)
--- NOTE | 2023-11-02 10:23 | MHC.OFFVISCO ---
Intake Intake Visit Reasons: Anticoagulation Allergies hydrochlorothiazide Allergy (Unknown, Verified 11/02/23 10:02) muscle stiffness Medication List - Last Reconciled 11/02/23 by Freda Thomas RN atenolol-chlorthalidone 50-25 mg 1 tab PO DAILY atorvastatin 40 mg PO BEDTIME warfarin See Protocol one to two tablets based on INR level PO daily; dosing to be adjusted as instructed by Anticoagulation Clinic Nursing Note Amb to [facility] accomp by , feeling well, has planned knee injection on Friday 11/03 and for next 3 weeks, sts no hold of warfarin Medications and supplements reviewed, recent dosing decrease due to elevated INRs No other changes in health, diet, medications, or supplements, Denies any signs and symptoms of bleeding, bruising, or clotting. INR 3.4 above therapeutic range dosing plan- decrease dose tonight to 2.5mg vs 7.5mg then resume usual dosing 7.5mg daily Nutritional guidance given- have small serving spinach today to help lower INR, ok fir small serving broccoli tomorrow, then no greens Thursday or and then can resume usual diet pattern with balance of greens and reds, however should have a good green evening before next knee injection TC to [facility], spoke with Crystal who stated don't usually hold warfarin for knee injections F/U INR: 10 days booked for Friday 11/10 before 2nd knee injection Patient and verbalizes understanding of instructions given Anti-Coag Initial Assessment Social Hx Patient Tobacco Use Status: Former Tobacco user Quit Date: 1999 Tobacco use type: Cigarette alcohol intake: current Alcohol intake frequency: a few times a week Cardiovascular Hx: HTN and Other Blood Disorder Hx: Hyperlipidemia Hx: Prostate and Other Neurological Hx: Epilepsy/Seizures and Stroke/TIA Cancer HX: No Psych. 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
== END 2023-11-02 10:34 | disposition home or self-care (01) ==
LOC: HO.ACS 10:00
PROVIDERS: PCP Internal Medicine; Visit Provider Internal Medicine
DX: Z79.01 Long term (current) use of anticoagulants (principal)

== ENCOUNTER → 2023-11-02 10:00 | Outpatient (BNVA) | payer MEDICARE, SELFPAY | PROVIDERS: PCP Internal Medicine; Visit Provider Internal Medicine | DX: Z86.73 Personal history of transient ischemic attack (TIA), and cerebral infarction without residual deficits (principal); Z51.81 Encounter for therapeutic drug level monitoring; Z79.01 Long term (current) use of anticoagulants | CPT/HCPCS: 85610; 99211 ==

== ENCOUNTER 2023-11-04 09:11 | Outpatient (AMB) | payer MEDICARE, SELFPAY ==
[2023-11-04 09:17] VITALS: BMI 35.1
--- NOTE | 2023-11-04 09:17 | MHC.OFFVIS ---
Vital Signs 11/04/23 09:17 Height 6 ft Weight 259 lb BMI 35.1 Intake Visit Reasons: Left Knee Euflexxa #1 Intake Note: Penelope is a 68 year old male who presents for his #1 Left knee Euflexxa gel injection. He has had cortisone injections in the past which gave him minimal relief. He describes his left knee pain as sharp in nature. He has tried Tylenol which gives him only mild relief. He is not able to tolerate anti-inflammatory medicines. He would like to hold off on surgery for as long as possible. Allergies hydrochlorothiazide Allergy (Unknown, Verified 11/04/23 09:20) muscle stiffness Medication List - Last Reconciled 11/05/23 by Dequan Zavala MD atenolol-chlorthalidone 50-25 mg 1 tab PO DAILY atorvastatin 40 mg PO BEDTIME warfarin See Protocol one to two tablets based on INR level PO daily; dosing to be adjusted as instructed by [facility]ticoagulation [facility] Medical History BPH (benign prostatic hyperplasia) CVA (cerebral vascular accident) Hypertension, essential Surgical History History of esophagogastroduodenoscopy (EGD) Hx of colonoscopy History of total right knee replacement Family History Father Stomach cancer Paternal Grandfather Stomach cancer Social History Household Members: Spouse Housing: House Alcohol intake: current Alcohol intake frequency: a few times a week Patient Tobacco Use Status: Former Tobacco user Quit Date: 1999 Tobacco use type: Cigarette Years Smoked: 30 +/- e-Cigarette/Vaping Use: Never Used Substance Use Type: Marijuana service: No Current occupational status: employed and retired 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, 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 Current occupational exposures/hazards: No Cognitive needs: No Hearing needs: No Vision needs: No Physical Exam Vital Signs: BMI result Body Mass Index 35.1 Const Other: Well-nourished well-developed very friendly male awake alert and oriented x3 in no acute distress Extrem Other: Bilateral lower extremity examination shows good capillary refill, no skin lesions noted, normal sensation light touch Left knee examination shows a minimal effusion, palpable crepitus with range of motion, pain with range of motion, no instability Office Procedures Joint Injection/Drain Joint Injection/Drain Primary Site: left knee Prep: site was prepped using aseptic technique Injected: 20 mg of (Euflexxa viscosupplementation) and 1% plain lidocaine Procedure: The patient tolerated the procedure well Coding - Large joint Procedure code (CPT) selection complete Results Reviewed Results Reviewed: X-rays of the patient's left knee show joint space narrowing, subchondral sclerosis, no acute bony abnormalities Assessment & Plan Assessment & Plan (1) Arthritis of left knee: Code(s): M17.12 - Unilateral primary osteoarthritis, left knee Category: Medical Plan Mr. Driscoll presents with left knee pain due to degenerative joint disease. I had a lengthy discussion with the patient regarding the treatment options. He wishes to hold off on surgery for as long as possible. I agree with this plan. He has not gotten good relief from cortisone injections in the past. Thus, the risks and benefits of a series of Euflexxa injections were discussed at length with the patient. The patient wished to proceed. He tolerated the 1st Euflexxa injection well. He will continue with his home exercise program. He will follow up with me next week as scheduled. Feel free to call me at any time should questions regarding his orthopedic management arise. I spent 21 minutes in reviewing the patient's records and imaging studies, seeing the patient and documenting in the medical record. Orders: Orders AMB Joint Injection/Aspiration 11/04/23 M17.12 - Unilateral primary osteoarthritis, left knee Coding Level of Care Code Est Pt Level 3 (99547) Diagnoses Arthritis of left knee M17.12 CPT Codes Coding - Large joint: 79386 - Large joint ([id number])
== END 2023-11-04 09:41 | disposition home or self-care (01) ==
PROVIDERS: PCP Internal Medicine; Visit Provider Orthopaedic Surgery
DX: M17.12 Unilateral primary osteoarthritis, left knee (principal)
CPT/HCPCS: 20610; 99213

== ENCOUNTER → 2023-11-04 09:11 | Outpatient (BNVA) | payer MEDICARE, SELFPAY | PROVIDERS: PCP Internal Medicine; Visit Provider Orthopaedic Surgery | DX: M17.12 Unilateral primary osteoarthritis, left knee (principal) | CPT/HCPCS: 20610; 99212; J7323 ==

== ENCOUNTER 2023-11-11 08:27 | Outpatient (AMB) | payer MEDICARE, SELFPAY ==
--- NOTE | 2023-11-11 08:34 | MHC.OFFVISCO ---
Intake Intake Visit Reasons: Anticoagulation Allergies hydrochlorothiazide Allergy (Unknown, Verified 11/11/23 08:29) muscle stiffness Medication List - Last Reconciled 11/11/23 by Aleah Trevino RN atenolol-chlorthalidone 50-25 mg 1 tab PO DAILY atorvastatin 40 mg PO BEDTIME warfarin See Protocol one to two tablets based on INR level PO daily; dosing to be adjusted as instructed by Anticoagulation Clinic Nursing Note INR 4.1-?? out of therapeutic range of 2-3 Medications and supplements reviewed Patient status: had etoh- 6 beers last night Medications or supplements: no changes Diet: same Denies any signs and symptoms of bleeding or clotting or unusual bruising Bleeding, bruising, clotting discussed Nutritional guidance given: eat greens Dose: hold today then 7.5mg x 7 F/U INR Date : pt req 2 weeks?? Patient verbalizing understanding of instructions given. Anti-Coag Initial Assessment Social Hx Patient Tobacco Use Status: Former Tobacco user Quit Date: 1999 Tobacco use type: Cigarette alcohol intake: current Alcohol intake frequency: a few times a week Cardiovascular Hx: HTN and Other Blood Disorder Hx: Hyperlipidemia Hx: Prostate and Other Neurological Hx: Epilepsy/Seizures and Stroke/TIA Cancer HX: No Psych. Illness/Depression: No Coding Level of Care Code Est Patient Level 1 Diagnoses Current use of anticoagulant therapy Z79.01 Results AMB INR Fingerstick AMB INR Fingerstick 4.1 Last Edit by Aleah Trevino RN on 11/11/23 08:37 interface delay Assessment & Plan Assessment & Plan (1) Current use of anticoagulant therapy: Code(s): Z79.01 - [facility] (current) use of anticoagulants Category: Medical
[2023-11-11 08:43] LABS: Prothrombin Time Whole Bld POC 49.7 sec (11.1-13.5); ~PT, ~INR - Anti Coag Clinic 4.1 (0.9-1.1)
== END 2023-11-11 08:44 | disposition home or self-care (01) ==
LOC: HO.ACS 08:27
PROVIDERS: PCP Internal Medicine; Visit Provider Internal Medicine
DX: Z79.01 Long term (current) use of anticoagulants (principal)

== ENCOUNTER → 2023-11-11 08:27 | Outpatient (BNVA) | payer MEDICARE, SELFPAY | PROVIDERS: PCP Internal Medicine; Visit Provider Internal Medicine | DX: M17.12 Unilateral primary osteoarthritis, left knee (principal); Z86.73 Personal history of transient ischemic attack (TIA), and cerebral infarction without residual deficits; Z51.81 Encounter for therapeutic drug level monitoring; Z79.01 Long term (current) use of anticoagulants | CPT/HCPCS: 20610; 85610; 99211; 99212; J7323 ==

== ENCOUNTER 2023-11-11 08:48 | Outpatient (AMB) | payer MEDICARE, SELFPAY ==
[2023-11-11 08:52] VITALS: BMI 35.1
--- NOTE | 2023-11-11 08:52 | A.OFFVIS_ITS ---
Vital Signs 11/11/23 08:52 Height 6 ft Weight 259 lb BMI 35.1 Intake Visit Reasons: Left Knee Euflexxa #2 Intake Note: Penelope is a 68 year old male who presents for his #2 Left knee Euflexxa gel injection. The patient states that he got mild relief from his 1st injection. Continues with his home exercise program. Allergies hydrochlorothiazide Allergy (Unknown, Verified 11/11/23 08:53) muscle stiffness Medication List - Last Reconciled 11/11/23 by Dequan Zavala MD atenolol-chlorthalidone 50-25 mg 1 tab PO DAILY atorvastatin 40 mg PO BEDTIME warfarin See Protocol one to two tablets based on INR level PO daily; dosing to be adjusted as instructed by Anticoagulation Clinic [facility] Medical History BPH (benign prostatic hyperplasia) CVA (cerebral vascular accident) Hypertension, essential Surgical History History of esophagogastroduodenoscopy (EGD) Hx of colonoscopy History of total right knee replacement Family History Father Stomach cancer Paternal Grandfather Stomach cancer Social History Household Members: Spouse Housing: House Alcohol intake: current Alcohol intake frequency: a few times a week Patient Tobacco Use Status: Former Tobacco user Quit Date: 1999 Tobacco use type: Cigarette Years Smoked: 30 +/- e-Cigarette/Vaping Use: Never Used Substance Use Type: Marijuana service: No Current occupational status: employed and retired 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, 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 Current occupational exposures/hazards: No Cognitive needs: No Hearing needs: No Vision needs: No Physical Exam Vital Signs: BMI result Body Mass Index 35.1 Extrem Other: Left lower extremity examination shows a minimal knee effusion, palpable crepitus with range of motion, pain with range of motion, no instability Office Procedures Joint Injection/Drain Joint Injection/Drain Primary Site: left knee Prep: site was prepped using aseptic technique Injected: 20 mg of (Euflexxa viscosupplementation) and 1% plain lidocaine Procedure: The patient tolerated the procedure well Coding 50719 - Large joint Procedure code (CPT) selection complete Results AMB INR Fingerstick AMB INR Fingerstick 4.1 Last Edit by Aleah Trevino RN on 11/11/23 08:37 interface delay Results Reviewed Results Reviewed: X-rays of the patient's left knee show joint space narrowing, subchondral sclerosis, no acute bony abnormalities Assessment & Plan Assessment & Plan (1) Arthritis of left knee: Code(s): M17.12 - Unilateral primary osteoarthritis, left knee Category: Medical Plan Mr. Driscoll presents with left knee pain due to degenerative joint disease. The risks and benefits of a 2nd Euflexxa injection were discussed at length with the patient. The patient wished to proceed. He tolerated the injection well. Will continue with his home exercise program. He will follow up next week as scheduled. Feel free to call me at any time should questions regarding his orthopedic management arise. Orders: Orders AMB Joint Injection/Aspiration Today M17.12 - Unilateral primary osteoarthritis, left knee Coding Level of Care Code Global (81547) Diagnoses Arthritis of left knee M17.12 CPT Codes Coding - 13073 Large joint: 46868 - Large joint ([id number])
== END 2023-11-11 09:24 | disposition home or self-care (01) ==
PROVIDERS: PCP Internal Medicine; Visit Provider Orthopaedic Surgery
DX: M17.12 Unilateral primary osteoarthritis, left knee (principal)
CPT/HCPCS: 20610; 99024

== ENCOUNTER 2023-11-18 09:39 | Outpatient (AMB) | payer MEDICARE, SELFPAY ==
--- NOTE | 2023-11-18 09:41 | MHC.OFFVIS ---
Intake Visit Reasons: Left Knee Euflexxa #3 Intake Note: Penelope is a 68 year old male who presents for his #3 Left knee Euflexxa gel injection. He states that he has gotten mild relief from the 1st 2 injections. He continues with his exercise program. Allergies hydrochlorothiazide Allergy (Unknown, Verified 11/18/23 09:41) muscle stiffness Medication List - Last Reconciled 11/18/23 by Dequan Zavala MD atenolol-chlorthalidone 50-25 mg 1 tab PO DAILY atorvastatin 40 mg PO BEDTIME warfarin See Protocol one to two tablets based on INR level PO daily; dosing to be adjusted as instructed by Anticoagulation Clinic [facility] Medical History BPH (benign prostatic hyperplasia) CVA (cerebral vascular accident) Hypertension, essential Surgical History History of esophagogastroduodenoscopy (EGD) Hx of colonoscopy History of total right knee replacement Family History Father Stomach cancer Paternal Grandfather Stomach cancer Social History Household Members: Spouse Housing: House Alcohol intake: current Alcohol intake frequency: a few times a week Patient Tobacco Use Status: Former Tobacco user Tobacco use type: Cigarette Years Smoked: 30 +/- e-Cigarette/Vaping Use: Never Used Substance Use Type: Marijuana service: No Current occupational status: employed and retired 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, 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 Current occupational exposures/hazards: No Cognitive needs: No Hearing needs: No Vision needs: No Physical Exam Extrem Other: Left knee examination shows a minimal effusion, palpable crepitus with range of motion, pain with range motion, no instability Office Procedures Joint Injection/Drain Joint Injection/Drain Primary Site: left knee Prep: site was prepped using aseptic technique Injected: 20 mg of (Euflexxa viscosupplementation) and 1% plain lidocaine Procedure: The patient tolerated the procedure well Coding 85339 - Large joint Procedure code (CPT) selection complete Results Reviewed Results Reviewed: X-rays of the patient's left knee show joint space narrowing, subchondral sclerosis, no acute bony abnormalities Assessment & Plan Assessment & Plan (1) Arthritis of left knee: Code(s): M17.12 - Unilateral primary osteoarthritis, left knee Category: Medical Plan Mr. Driscoll presents with left knee pain due to degenerative joint disease. The risks and benefits of a 3rd Euflexxa viscosupplementation injection were discussed at length with the patient. The patient wished to proceed. He tolerated the injection well. He will continue with his home exercise program. He will follow up with me on an as-needed basis should his symptoms not plateau at an unacceptable level over the next few months. Feel free to call me at any time should questions regarding his orthopedic management arise. Orders: Orders AMB Joint Injection/Aspiration Today M17.12 - Unilateral primary osteoarthritis, left knee Coding Level of Care Code Procedure Only Diagnoses Arthritis of left knee M17.12 CPT Codes Coding - 24637 Large joint: 08650 - Large joint ([id number])
== END 2023-11-18 10:02 | disposition home or self-care (01) ==
PROVIDERS: PCP Internal Medicine; Visit Provider Orthopaedic Surgery
DX: M17.12 Unilateral primary osteoarthritis, left knee (principal)
CPT/HCPCS: 20610

== ENCOUNTER → 2023-11-18 09:39 | Outpatient (BNVA) | payer MEDICARE, SELFPAY | PROVIDERS: PCP Internal Medicine; Visit Provider Orthopaedic Surgery | DX: M17.12 Unilateral primary osteoarthritis, left knee (principal) | CPT/HCPCS: 20610; J7323 ==

== ENCOUNTER 2023-11-23 09:12 | Outpatient (AMB) | payer MEDICARE, SELFPAY ==
[2023-11-23 09:19] LABS: Prothrombin Time Whole Bld POC 36.1 sec (11.1-13.5)
--- NOTE | 2023-11-23 09:35 | MHC.OFFVISCO ---
Intake Intake Visit Reasons: Anticoagulation Allergies hydrochlorothiazide Allergy (Unknown, Verified 11/23/23 09:13) muscle stiffness Medication List - Last Reconciled 11/23/23 by Freda Baker RN atenolol-chlorthalidone 50-25 mg 1 tab PO DAILY atorvastatin 40 mg PO BEDTIME warfarin See Protocol one to two tablets based on INR level PO daily; dosing to be adjusted as instructed by Anticoagulation Clinic Nursing Note INR: 3.0 in therapeutic range of 2-3 Medications and supplements reviewed: no changes No changes in health, diet, medications, or supplements, Denies any signs and symptoms of bleeding or bruising or clotting. Bleeding, bruising, clotting discussed Nutritional guidance given. Pt going on vacation in 2 weeks and will be having more etoh intake but states he will be increasing his greens Dose: 7.5mg daily F/U INR: 4 weeks at pt request. Suggested 2 weeks to watch his INR as he has been running high but pt insists 4 weeks Patient verbalizes understanding of instructions given Anti-Coag Initial Assessment Social Hx Patient Tobacco Use Status: Former Tobacco user Tobacco use type: Cigarette alcohol intake: current Alcohol intake frequency: a few times a week Cardiovascular Hx: HTN and Other Blood Disorder Hx: Hyperlipidemia Hx: Prostate and Other Neurological Hx: Epilepsy/Seizures and Stroke/TIA Cancer HX: No Psych. 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
== END 2023-11-23 09:39 | disposition home or self-care (01) ==
LOC: HO.ACS 09:12
PROVIDERS: PCP Internal Medicine; Visit Provider Internal Medicine
DX: Z79.01 Long term (current) use of anticoagulants (principal)

== ENCOUNTER → 2023-11-23 09:12 | Outpatient (BNVA) | payer MEDICARE, SELFPAY | PROVIDERS: PCP Internal Medicine; Visit Provider Internal Medicine | DX: Z86.73 Personal history of transient ischemic attack (TIA), and cerebral infarction without residual deficits (principal); Z79.01 Long term (current) use of anticoagulants; Z51.81 Encounter for therapeutic drug level monitoring | CPT/HCPCS: 85610; 99211 ==

== ENCOUNTER 2023-12-14 09:23 | Outpatient (AMB) | payer MEDICARE, SELFPAY ==
--- NOTE | 2023-12-14 09:35 | MHC.OFFVISCO ---
Intake Intake Visit Reasons: Anticoagulation Allergies hydrochlorothiazide Allergy (Unknown, Verified 12/14/23 09:31) muscle stiffness Medication List - Last Reconciled 12/14/23 by Aleah Trevino RN atenolol-chlorthalidone 50-25 mg 1 tab PO DAILY atorvastatin 40 mg PO BEDTIME warfarin See Protocol one to two tablets based on INR level PO daily; dosing to be adjusted as instructed by Anticoagulation Clinic Nursing Note INR 3.5-?? out of therapeutic range of 2-3 Medications and supplements reviewed Patient status: pt on vacation- had more etoh- aware will raise inr Medications or supplements: no changes Diet: appetite good, did not have greens on vacation Denies any signs and symptoms of bleeding or clotting or unusual bruising Bleeding, bruising, clotting discussed Nutritional guidance given: eat greens to lower Dose: 5mg today then 7.5mg x 7 F/U INR Date : pt ref earlier appt than 3 weeks Patient verbalizing understanding of instructions given. Anti-Coag Initial Assessment Social Hx Patient Tobacco Use Status: Former Tobacco user Tobacco use type: Cigarette alcohol intake: current Alcohol intake frequency: a few times a week Cardiovascular Hx: HTN and Other Blood Disorder Hx: Hyperlipidemia Hx: Prostate and Other Neurological Hx: Epilepsy/Seizures and Stroke/TIA Cancer HX: No Psych. Illness/Depression: No Coding Level of Care Code Est Patient Level 1 Diagnoses Current use of anticoagulant therapy Z79.01 Results AMB INR Fingerstick AMB INR Fingerstick 3.5 Last Edit by Aleah Trevino RN on 12/14/23 09:40 Assessment & Plan Assessment & Plan (1) Current use of anticoagulant therapy: Code(s): Z79.01 - halfway (current) use of anticoagulants Category: Medical
[2023-12-15 08:02] LABS: Prothrombin Time Whole Bld POC 41.6 sec (11.1-13.5); ~PT, ~INR - Anti Coag Clinic 3.5 (0.9-1.1)
== END 2023-12-14 09:58 | disposition home or self-care (01) ==
LOC: HO.ACS 09:23
PROVIDERS: PCP Internal Medicine; Visit Provider Internal Medicine
DX: Z79.01 Long term (current) use of anticoagulants (principal)

== ENCOUNTER → 2023-12-14 09:23 | Outpatient (BNVA) | payer MEDICARE, SELFPAY | PROVIDERS: PCP Internal Medicine; Visit Provider Internal Medicine | DX: Z86.73 Personal history of transient ischemic attack (TIA), and cerebral infarction without residual deficits (principal); Z51.81 Encounter for therapeutic drug level monitoring; Z79.01 Long term (current) use of anticoagulants | CPT/HCPCS: 85610; 99211 ==

== ENCOUNTER 2024-01-04 09:26 | Outpatient (AMB) | payer MEDICARE, SELFPAY ==
[2024-01-04 09:37] LABS: Prothrombin Time Whole Bld POC 42.7 sec (11.1-13.5); ~PT, ~INR - Anti Coag Clinic 3.6 (0.9-1.1)
--- NOTE | 2024-01-04 09:51 | MHC.OFFVISCO ---
Intake Intake Visit Reasons: Anticoagulation Allergies hydrochlorothiazide Allergy (Unknown, Verified 01/04/24 09:31) muscle stiffness Medication List - Last Reconciled 01/04/24 by Cherie Gallegos RN atenolol-chlorthalidone 50-25 mg 1 tab PO DAILY atorvastatin 40 mg PO BEDTIME warfarin See Protocol one to two tablets based on INR level PO daily; dosing to be adjusted as instructed by Anticoagulation Clinic Nursing Note INR: 3.6 OUT OF therapeutic range Medications and supplements reviewed DIET: LIKES MANY OF THE SUMMER FOODS THAT RAISE THE INR LIKE CHERRIES AND TOMATOES - AND BEER WILL DECREASE WEEKLY DOSE No changes in health,, medications, or supplements, Denies any signs and symptoms of bleeding or bruising or clotting. Bleeding, bruising, clotting discussed Nutritional guidance given - REVIEW FOOD LIST WEEKLY- DO NOT OVER COMPENSATE GREENS Dose: DECREASE WEEKLY DOSE 5MG X 1 DAY/ 7.5MG X 6 DAYS F/U INR: 3 WEEKS PER PT REQUEST Patient verbalizes understanding of instructions given Anti-Coag Initial Assessment Social Hx Patient Tobacco Use Status: Former Tobacco user Tobacco use type: Cigarette alcohol intake: current Alcohol intake frequency: a few times a week Cardiovascular Hx: HTN and Other Blood Disorder Hx: Hyperlipidemia Hx: Prostate and Other Neurological Hx: Epilepsy/Seizures and Stroke/TIA Cancer HX: No Psych. Illness/Depression: No Coding Level of Care Code Est Patient Level 1 Diagnoses Current use of anticoagulant therapy Z79.01 Assessment & Plan Assessment & Plan (1) Current use of anticoagulant therapy: Code(s): Z79.01 - halfway (current) use of anticoagulants Category: Medical
== END 2024-01-04 09:53 | disposition home or self-care (01) ==
LOC: HO.ACS 09:26
PROVIDERS: PCP Internal Medicine; Visit Provider Internal Medicine
DX: Z79.01 Long term (current) use of anticoagulants (principal)

== ENCOUNTER → 2024-01-04 09:26 | Outpatient (BNVA) | payer MEDICARE, SELFPAY | PROVIDERS: PCP Internal Medicine; Visit Provider Internal Medicine | DX: Z86.73 Personal history of transient ischemic attack (TIA), and cerebral infarction without residual deficits (principal); Z79.01 Long term (current) use of anticoagulants; Z51.81 Encounter for therapeutic drug level monitoring | CPT/HCPCS: 85610; 99211 ==

== ENCOUNTER 2024-01-26 09:25 | Outpatient (AMB) | payer MEDICARE, SELFPAY ==
--- NOTE | 2024-01-26 09:38 | MHC.OFFVISCO ---
Intake Intake Visit Reasons: Anticoagulation Allergies hydrochlorothiazide Allergy (Unknown, Verified 01/26/24 09:34) muscle stiffness Medication List - Last Reconciled 01/26/24 by Aleah Trevino RN atenolol-chlorthalidone 50-25 mg 1 tab PO DAILY atorvastatin 40 mg PO BEDTIME warfarin See Protocol one to two tablets based on INR level PO daily; dosing to be adjusted as instructed by Anticoagulation Clinic Nursing Note INR 3.1-?? out of therapeutic range 2-3 Medications and supplements reviewed Patient status: no c.o Medications or supplements: no changes Diet: appetite is good, eating tomatoes Denies any signs and symptoms of bleeding or clotting or unusual bruising Bleeding, bruising, clotting discussed Nutritional guidance given: eat a green today Dose: 5mg x 1. 7.5mg x 6 F/U INR Date : 3 weeks? Patient verbalizing understanding of instructions given. Anti-Coag Initial Assessment Social Hx Patient Tobacco Use Status: Former Tobacco user Tobacco use type: Cigarette alcohol intake: current Alcohol intake frequency: a few times a week Cardiovascular Hx: HTN and Other Blood Disorder Hx: Hyperlipidemia Hx: Prostate and Other Neurological Hx: Epilepsy/Seizures and Stroke/TIA Cancer HX: No Psych. 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
[2024-01-26 09:39] LABS: Prothrombin Time Whole Bld POC 36.6 sec (11.1-13.5); ~PT, ~INR - Anti Coag Clinic 3.1 (0.9-1.1)
== END 2024-01-26 09:54 | disposition home or self-care (01) ==
LOC: HO.ACS 09:25
PROVIDERS: PCP Internal Medicine; Visit Provider Internal Medicine
DX: Z79.01 Long term (current) use of anticoagulants (principal)

== ENCOUNTER → 2024-01-26 09:25 | Outpatient (BNVA) | payer MEDICARE, SELFPAY | PROVIDERS: PCP Internal Medicine; Visit Provider Internal Medicine | DX: Z86.73 Personal history of transient ischemic attack (TIA), and cerebral infarction without residual deficits (principal); Z79.01 Long term (current) use of anticoagulants; Z51.81 Encounter for therapeutic drug level monitoring | CPT/HCPCS: 85610; 99211 ==

== ENCOUNTER 2024-02-09 08:21 | Outpatient (REF) | payer MEDICARE, SELFPAY ==
[2024-02-09 11:01] LABS: Alanine Aminotransferase 26 U/L (0-40); Albumin Level 4.1 g/dL (3.5-5.0); Alkaline Phosphatase 54 U/L (39-117); Anion Gap 14 (12-20); Aspartate Amino Transferase 20 U/L (5-37); Bilirubin Total 0.9 mg/dL (0.0-1.0); Blood Urea Nitrogen 15 mg/dL (9-16); Calcium 9.6 mg/dL (8.4-10.2); Carbon Dioxide 25 mmol/L (22-29); Chloride 104 mmol/L (96-108); Estimated Glomerular Filt Rate > 60; Glucose Random 176 mg/dL (60-115); Potassium 3.3 mmol/L (3.3-5.1); Sodium 140 mmol/L (135-145); Total Protein 6.8 g/dL (6.5-8.0)
== END 2024-02-09 08:22 | disposition home or self-care (01) ==
LOC: HO.HMGCLDS 08:21
PROVIDERS: PCP Internal Medicine; Visit Provider Internal Medicine
DX: I10 Essential (primary) hypertension (principal); Z68.33 Body mass index [BMI] 33.0-33.9, adult; E66.09 Other obesity due to excess calories; E78.9 Disorder of lipoprotein metabolism, unspecified
CPT/HCPCS: 36415; 80053

== ENCOUNTER 2024-02-17 08:40 | Outpatient (AMB) | payer MEDICARE, SELFPAY ==
[2024-02-17 08:41] VITALS: BP 122/82; PULSE 52; O2SAT 98; BMI 34.0
--- NOTE | 2024-02-17 08:41 | A.OFFPC_ITS ---
Vital Signs 3 02/17/24 08:41 Height 6 ft Weight 250 lb 6 oz BMI 34.0 BP 122/82 Blood Pressure Location Rt brachial Position Sitting Pulse 52 Pulse Source Pulse Oximeter Pulse Oximetry (%) 98 Oxygen Delivery Method Room Air Intake Visit Reasons: 4 month fu Allergies hydrochlorothiazide Allergy (Unknown, Verified 02/17/24 08:41) muscle stiffness Medication List - Last Reconciled 02/17/24 by Ronal Marino MD atenolol-chlorthalidone 50-25 mg 1 tab PO DAILY atorvastatin 40 mg PO BEDTIME warfarin See Protocol one to two tablets based on INR level PO daily; dosing to be adjusted as instructed by Anticoagulation Clinic Tobacco use date assessed: 02/17/24 Fall risk assessment: No Falls in past year Last assessed Fall Risk: 02/17/24 Dental Screening Dental Screen Date: 02/17/24 Did you have a dental visit in the last 12 months?: Yes Did you have a dental problem in the last 6 months where you did not have access to dental care?: No Was dental information given to patient?: Patient has dentist HPI 4 month fu 2 HPI0 Details Patient is 68-year-old gentleman came in today for his regular follow- up appointment Blood pressure is well-controlled Patient is taking his medication regularly, no side effects. 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 He is using [id number] antifungal cream which is not helping I have sent Lotrisone cream patient may use it 2 times a day until rash is resolved. BMI is elevated need to lose weight He has appointment in May for physical exam. [facility] Medical History BPH (benign prostatic hyperplasia) CVA (cerebral vascular accident) Hypertension, essential Surgical History History of esophagogastroduodenoscopy (EGD) Hx of colonoscopy History of total right knee replacement Family History Father Stomach cancer Paternal Grandfather Stomach cancer Social History Household Members: Spouse Housing: House Alcohol intake: current Alcohol intake frequency: a few times a week Patient Tobacco Use Status: Former Tobacco user Tobacco use type: Cigarette Years Smoked: 30 +/- e-Cigarette/Vaping Use: Never Used Substance Use Type: Marijuana service: No Current occupational status: employed and retired 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 1. Little interest or pleasure in doing things: not at all 2. Feeling down, depressed, or hopeless: not at all 3. Trouble falling or staying asleep, or sleeping too much: not at all 4. Feeling tired or having little energy: not at all 5. Poor appetite or overeating: not at all 6. Feeling bad about yourself - or that you are a failure or have let yourself or your family down: not at all 7. Trouble concentrating on things, such as reading the newspaper or watching television: not at all 8. Moving or speaking so slowly that other people could have noticed. Or the opposite - being so fidgety or restless that you have been moving around a lot more than usual: not at all 9. Thoughts that you would be better off or of hurting yourself in some way: not at all Total score: 0 Depression Screening Interpretation: Negative Depression Screening Done: Yes 81363 - PHQ-9 Billing: Yes Source: Developed by Drs. José Miguel Fischer, Katya Green, Kin Doan and colleagues, with an educational willi from [employer]. Thrive Questionnaire Date Thrive assessed: 02/17/24 I am a: Patient What is your living situation today?: I have a steady place to live Within the past 12 months, did the food you bought not last and you didn't have the money to get more?: Never true Within the past 12 months, did you worry whether your food would run out before you got money to buy more?: Never true Do you have trouble paying for medicines?: No Do you have trouble getting transportation to medical appointments?: No Do you have trouble paying your heating and electricity bill?: No Do you have trouble taking care of your child, family member or friend?: No Do you have trouble with day-to-day activities such as bathing, preparing meals, shopping, managing finances, etc.?: No Are you currently unemployed and looking for a job?: No Are you interested in more education?: No Please select the resources that you would like help with: None Currently or been in a relationship where the following occur: No concerns reported THRIVE Score: 0 AUDIT C Alcohol Use Questionnaire (AUDIT-C) 1. How often do you have a drink containing alcohol?: 2-4 times a month 2. How many drinks containing alcohol do you have on a typical day when you are drinking?: 1 or 2 3. How often do you have six or more drinks on one occasion?: Never Total Score: 2 Score Reviewed/Action Taken: Yes WYATT-7 AMB Questionnaire WYATT-7 Date WYATT - 7 assessed: 02/17/24 Feeling nervous, anxious, or on edge: 0 = Not at all Not being able to stop or control worryin = Not at all Worrying too much about different things: 0 = Not at all Trouble relaxin = Not at all Being so restless that it is hard to sit still: 0 = Not at all Becoming easily annoyed or irritable: 0 = Not at all Feeling afraid as if something awful might happen: 0 = Not at all Total WYATT-7 score (0-4 normal; 5-9 mild; 10-14 moderate; 15-21 severe): 0 Source: Developed by Drs. José Miguel Fischer, Katya Green, Kin Doan and colleagues, with an educational willi from [employer]. WYATT-7 Assessment Billing WYATT-7 Assessment Tool: WYATT-7 Assessment 31603 Review of Systems Const Denies chills and Denies fever(s) ENT Denies epistaxis and Denies nasal discharge Card Denies chest pain Resp Denies chest congestion, Denies cough and Denies hemoptysis GI Denies diarrhea and Denies nausea Neuro Reports no additional complaints Psych Reports no additional complaints Endo Reports no additional complaints Physical exam (Primary Care) Vital Signs: Last Vital Signs Pulse 52 02/17/24 08:41 BP 122/82 02/17/24 08:41 Pulse Ox 98 02/17/24 08:41 Oxygen Delivery Method Room Air 02/17/24 08:41 BMI result Body Mass Index 34.0 Tobacco/Smoking Status: Tobacco use Status Tobacco use date assessed 02/17/24 02/17/24 08:45 Patient Tobacco Use Status Former Tobacco user 02/17/24 08:45 Tobacco use type Cigarette 02/17/24 08:45 e-Cigarette/Vaping Use Never Used 02/17/24 08:45 PHQ-9: PHQ-9 Score PHQ-9: Total score 0 02/17/24 09:17 Depression Screening Interpretation: Negative Thrive Assessment: Date of Thrive Assessment Date Thrive assessed 02/17/24 02/17/24 08:45 Currently or been in a relationship where the following occur: No concerns reported Const General: cooperative, comfortable and no acute distress Orientation/consciousness: patient oriented x3 HENMT Head: Yes normocephalic Eyes General: appearance normal, both eyes and all related structures Neck Neck: Yes supple Resp Effort & Inspection: normal respiratory effort, no cough and no stridor Cardio Rhythm: regular rhythm Heart sounds: S1 normal heart sound present and S2 normal heart sound present Skin General skin exam: turgor normal Full body images: 2 1. Tinea corporis patch right larger size of 4 x 4 inches than left 2. Neuro General: patient oriented x3, tone normal and moves all extremities Extrem Right lower extremity: no edema Left lower extremity: no edema Assessment and Plan Assessment & Plan (1) Lipid disorder: Code(s): E78.9 - Disorder of lipoprotein metabolism, unspecified (2) Tinea corporis: Code(s): B35.4 - Tinea corporis (3) Elevated fasting blood sugar: Code(s): R73.01 - Impaired fasting glucose (4) Alcoholic peripheral neuropathy: Code(s): G62.1 - Alcoholic polyneuropathy (5) Obesity due to excess calories: Code(s): E66.09 - Other obesity due to excess calories Qualifiers: Body mass index: BMI 33.0-33.9 Obesity classification: adult class 1 (BMI 30 - 34.9) Serious obesity comorbidity presence: with serious comorbidity Qualified Code(s): E66.09 - Other obesity due to excess calories; Z68.33 - Body mass index [BMI] 33.0-33.9, adult (6) Hypertension, essential: Code(s): I10 - Essential (primary) hypertension (7) On warfarin therapy: Code(s): 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 He is using rhto-kji-eqphoht antifungal cream which is not helping I have sent Lotrisone cream patient may use it 2 times a day until rash is resolved. BMI is elevated need to lose weight He has appointment in May for physical exam. Medications: New 2 clotrimazole-betamethasone 1-0.05 % 1 appl topical BID 45 grams 1RF 30 days Coding Level of Care Code Est Pt Level 4 (08840) Complex EM visit Add On G2211 Diagnoses Lipid disorder E78.9 Tinea corporis B35.4 Elevated fasting blood sugar R73.01 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 Class 1 obesity due to excess calories with serious comorbidity and body mass index (BMI) of 33.0 to 33.9 in adult E66.09; Z68.33 Body mass index: BMI 33.0-33.9 Obesity classification: adult class 1 (BMI 30 - 34.9) Serious obesity comorbidity presence: with serious comorbidity Hypertension, essential I10 On warfarin therapy Z79.01 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
== END 2024-02-17 09:18 | disposition home or self-care (01) ==
PROVIDERS: PCP Internal Medicine; Visit Provider Internal Medicine
DX: E78.9 Disorder of lipoprotein metabolism, unspecified (principal); G62.1 Alcoholic polyneuropathy; I63.40 Cerebral infarction due to embolism of unspecified cerebral artery; B35.4 Tinea corporis; R73.01 Impaired fasting glucose; E66.09 Other obesity due to excess calories; Z68.33 Body mass index [BMI] 33.0-33.9, adult; I10 Essential (primary) hypertension; Z79.01 Long term (current) use of anticoagulants
CPT/HCPCS: 99214; G2211

== ENCOUNTER 2024-02-17 10:16 | Outpatient (AMB) | payer MEDICARE, SELFPAY ==
--- NOTE | 2024-02-17 10:33 | MHC.OFFVISCO ---
Intake Intake Visit Reasons: Anticoagulation Allergies hydrochlorothiazide Allergy (Unknown, Verified 02/17/24 10:27) muscle stiffness Medication List - Last Reconciled 02/17/24 by Aleah Trevino RN atenolol-chlorthalidone 50-25 mg 1 tab PO DAILY atorvastatin 40 mg PO BEDTIME clotrimazole-betamethasone 1-0.05 % 1 appl topical BID 30 days warfarin See Protocol one to two tablets based on INR level PO daily; dosing to be adjusted as instructed by Anticoagulation Clinic Nursing Note INR: 2.5- in therapeutic range of 2-3 Medications and supplements reviewed- no changes No changes in health, diet, medications, or supplements, Denies any signs and symptoms of bleeding or bruising or clotting. Bleeding, bruising, clotting discussed Nutritional guidance given - include greens in weekly diet Dose: 5mg x 1. 7.5mg x 6 F/U INR: pt req 5 weeks Patient and spouse verbalizes understanding of instructions given Anti-Coag Initial Assessment Social Hx Patient Tobacco Use Status: Former Tobacco user Tobacco use type: Cigarette alcohol intake: current Alcohol intake frequency: a few times a week Cardiovascular Hx: HTN and Other Blood Disorder Hx: Hyperlipidemia Hx: Prostate and Other Neurological Hx: Epilepsy/Seizures and Stroke/TIA Cancer HX: No Psych. 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
[2024-02-17 10:34] LABS: Prothrombin Time Whole Bld POC 30.8 sec (11.1-13.5); ~PT, ~INR - Anti Coag Clinic 2.6 (0.9-1.1)
== END 2024-02-17 10:40 | disposition home or self-care (01) ==
LOC: HO.ACS 10:16
PROVIDERS: PCP Internal Medicine; Visit Provider Internal Medicine
DX: Z79.01 Long term (current) use of anticoagulants (principal)

== ENCOUNTER → 2024-02-17 10:16 | Outpatient (BNVA) | payer MEDICARE, SELFPAY | PROVIDERS: PCP Internal Medicine; Visit Provider Internal Medicine | DX: Z86.73 Personal history of transient ischemic attack (TIA), and cerebral infarction without residual deficits (principal); Z79.01 Long term (current) use of anticoagulants; Z51.81 Encounter for therapeutic drug level monitoring | CPT/HCPCS: 85610; 99211 ==

== ENCOUNTER 2024-03-22 08:58 | Outpatient (AMB) | payer MEDICARE, SELFPAY ==
[2024-03-22 09:11] LABS: Prothrombin Time Whole Bld POC 37.4 sec (11.1-13.5); ~PT, ~INR - Anti Coag Clinic 3.1 (0.9-1.1)
--- NOTE | 2024-03-22 09:20 | MHC.OFFVISCO ---
Intake Intake Visit Reasons: Anticoagulation Allergies hydrochlorothiazide Allergy (Unknown, Verified 03/22/24 09:05) muscle stiffness Medication List - Last Reconciled 03/22/24 by Cherie Gallegos RN atenolol-chlorthalidone 50-25 mg 1 tab PO DAILY atorvastatin 40 mg PO BEDTIME clotrimazole-betamethasone 1-0.05 % 1 appl topical BID 30 days warfarin See Protocol one to two tablets based on INR level PO daily; dosing to be adjusted as instructed by Anticoagulation Clinic Nursing Note INR: 3.1 almost therapeutic range Medications and supplements reviewed- s/p wedding has ETOH and greens No changes in health, medications, or supplements, Denies any signs and symptoms of bleeding or bruising or clotting. Bleeding, bruising, clotting discussed Nutritional guidance given - keep eating a balance of fruits and vegetables Dose: [id number] x 1 day/ 7.5mg x 6 days F/U INR: 1month Patient verbalizes understanding of instructions given Anti-Coag Initial Assessment Social Hx Patient Tobacco Use Status: Former Tobacco user Tobacco use type: Cigarette alcohol intake: current Alcohol intake frequency: a few times a week Cardiovascular Hx: HTN and Other Blood Disorder Hx: Hyperlipidemia Hx: Prostate and Other Neurological Hx: Epilepsy/Seizures and Stroke/TIA Cancer HX: No Psych. Illness/Depression: No Coding Level of Care Code Est Patient Level 1 Diagnoses Current use of anticoagulant therapy Z79.01 Results AMB INR Fingerstick AMB INR Fingerstick 3.1 Last Edit by Cherie Gallegos RN on 03/22/24 09:13 manual entry Assessment & Plan Assessment & Plan (1) Current use of anticoagulant therapy: Code(s): Z79.01 - jail (current) use of anticoagulants Category: Medical
== END 2024-03-22 09:23 | disposition home or self-care (01) ==
LOC: HO.ACS 08:58
PROVIDERS: PCP Internal Medicine; Visit Provider Internal Medicine
DX: Z79.01 Long term (current) use of anticoagulants (principal)

== ENCOUNTER → 2024-03-22 08:58 | Outpatient (BNVA) | payer MEDICARE, SELFPAY | PROVIDERS: PCP Internal Medicine; Visit Provider Internal Medicine | DX: Z86.73 Personal history of transient ischemic attack (TIA), and cerebral infarction without residual deficits (principal); Z79.01 Long term (current) use of anticoagulants; Z51.81 Encounter for therapeutic drug level monitoring | CPT/HCPCS: 85610; 99211 ==

== ENCOUNTER 2024-04-26 09:26 | Outpatient (AMB) | payer MEDICARE, SELFPAY ==
--- NOTE | 2024-04-26 09:31 | MHC.OFFVISCO ---
Intake Intake Visit Reasons: Anticoagulation Allergies hydrochlorothiazide Allergy (Unknown, Verified 04/26/24 09:27) muscle stiffness Medication List - Last Reconciled 04/26/24 by Aleah Trevino RN atenolol-chlorthalidone 50-25 mg 1 tab PO DAILY atorvastatin 40 mg PO BEDTIME clotrimazole-betamethasone 1-0.05 % 1 appl topical BID 30 days warfarin See Protocol one to two tablets based on INR level PO daily; dosing to be adjusted as instructed by Anticoagulation Clinic Nursing Note INR: 2.8- in therapeutic range of 2-3 Medications and supplements reviewed No changes in health, diet, medications, or supplements, Denies any signs and symptoms of bleeding or bruising or clotting. Bleeding, bruising, clotting discussed Nutritional guidance given Dose: 5mg x 1, 7.5mg x 6 F/U INR: pt req 5 weeks Patient verbalizes understanding of instructions given Anti-Coag Initial Assessment Social Hx Patient Tobacco Use Status: Former Tobacco user Tobacco use type: Cigarette alcohol intake: current Alcohol intake frequency: a few times a week Cardiovascular Hx: HTN and Other Blood Disorder Hx: Hyperlipidemia Hx: Prostate and Other Neurological Hx: Epilepsy/Seizures and Stroke/TIA Cancer HX: No Psych. Illness/Depression: No Coding Level of Care Code Est Patient Level 1 Diagnoses Current use of anticoagulant therapy Z79.01 Assessment & Plan Assessment & Plan (1) Current use of anticoagulant therapy: Code(s): Z79.01 - senior care (current) use of anticoagulants Category: Medical
[2024-04-26 09:33] LABS: Prothrombin Time Whole Bld POC 33.1 sec (11.1-13.5); ~PT, ~INR - Anti Coag Clinic 2.8 (0.9-1.1)
== END 2024-04-26 09:40 | disposition home or self-care (01) ==
LOC: HO.ACS 09:26
PROVIDERS: PCP Internal Medicine; Visit Provider Internal Medicine
DX: Z79.01 Long term (current) use of anticoagulants (principal)

== ENCOUNTER → 2024-04-26 09:26 | Outpatient (BNVA) | payer MEDICARE, SELFPAY | PROVIDERS: PCP Internal Medicine; Visit Provider Internal Medicine | DX: Z86.73 Personal history of transient ischemic attack (TIA), and cerebral infarction without residual deficits (principal); Z79.01 Long term (current) use of anticoagulants; Z51.81 Encounter for therapeutic drug level monitoring | CPT/HCPCS: 85610; 99211 ==

== ENCOUNTER 2024-05-17 10:27 | Outpatient (AMB) | payer MEDICARE, SELFPAY ==
[2024-05-17 10:30] VITALS: BP 118/86; PULSE 73; O2SAT 99; BMI 34.3
--- NOTE | 2024-05-17 10:30 | A.OFFPC_ITS ---
Vital Signs 05/17/24 10:30 Height 6 ft Weight 253 lb 2 oz BMI 34.3 BP 118/86 Blood Pressure Location Rt brachial Position Sitting Pulse 73 Pulse Source Pulse Oximeter Pulse Oximetry (%) 99 Oxygen Delivery Method Room Air Intake Visit Reasons: Annual PE Allergies hydrochlorothiazide Allergy (Unknown, Verified 05/17/24 10:31) muscle stiffness Medication List - Last Reconciled 05/17/24 by Ronal Marino MD atenolol-chlorthalidone 50-25 mg 1 tab PO DAILY atorvastatin 40 mg PO BEDTIME clotrimazole-betamethasone 1-0.05 % 1 appl topical BID 30 days warfarin See Protocol one to two tablets based on INR level PO daily; dosing to be adjusted as instructed by Anticoagulation Clinic Tobacco use date assessed: 05/17/24 Fall risk assessment: No Falls in past year Last assessed Fall Risk: 05/17/24 Dental Screening Dental Screen Date: 05/17/24 Did you have a dental visit in the last 12 months?: Yes Did you have a dental problem in the last 6 months where you did not have access to dental care?: No Was dental information given to patient?: Patient has dentist HPI Annual PE HPI Details Chief Complaint physical exam Health Maintenance - Blood tests planned for next visit to update lab results since last January. - Discussion on the continuation or adju stment of warfarin with neurology after stroke. - Advice on reducing nocturnal fluid int demarcus to manage urinary symptoms. - He had a colonoscopy December of this [address] [facility], next will be 2025 - obesity Assessment and Plan 69-year-old male with a history of strok e presenting for a follow-up visit and evaluation of urinary symptoms and yearly physical exam. He continues on warfarin and expresses concerns regarding medication management post-stroke. He reports nocturia impacting quality of sleep, suggestive of a possible enlarged prostate. A comprehensive physical exam did not reveal acute abnormalities, and there were no new neurology or cardiology concerns raised. 1. Stroke The patient is currently on warfarin following a stroke. Discussion centered on the need for evaluation by neurology to determine whether to continue or adjust the warfarin treatment. An appointment with neurology will be scheduled to assess the need for ongoing anticoagulation versus alternate therapies.Patient had loop recorder which showed, no atrial ventricular arrhythmia was recorded as a cause of stroke 2. Longstanding Bladder Issues The patient has experienced frequent nighttime urination for years. A urination- modifying medication Flomax will be prescribed to help manage symptoms, with the expectation to review its effectiveness during the next scheduled visit. 3. Enlarged Prostate The patient reports nocturia, which may be indicative of benign prostatic hyperplasia. A new medication will be initiated to help alleviate urinary symptoms, and its effectiveness will be assessed in three months' time. Recommendations to reduce evening fluid intake have been provided. 4- obesity, patient is having difficulty losing weight 5- hypertension blood pressure is stable continue medications Patient Instructions - Schedule and attend the neurology appo intment for a review of anticoagulation therapy. - Adhere to the new medication regimen f or urinary symptoms and report any issues. - Reduce fluid intake several hours befo re bedtime to lessen nocturia. - Conduct blood tests before the next ap pointment as advised. - Return in three months for follow-up a nd further evaluation of symptoms. - Continue current medications, includin g warfarin, unless otherwise directed by neurology. [facility] Medical History BPH (benign prostatic hyperplasia) CVA (cerebral vascular accident) Hypertension, essential Surgical History History of esophagogastroduodenoscopy (EGD) Hx of colonoscopy History of total right knee replacement Family History Father Stomach cancer Paternal Grandfather Stomach cancer Social History Household Members: Spouse Housing: House Alcohol intake: current Alcohol intake frequency: a few times a week Patient Tobacco Use Status: Former Tobacco user Tobacco use type: Cigarette Years Smoked: 30 +/- e-Cigarette/Vaping Use: Never Used Substance Use Type: Marijuana service: No Current occupational status: employed and retired 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, 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 Current occupational exposures/hazards: No Cognitive needs: No Hearing needs: No Vision needs: No Questionnaire Thrive Questionnaire Date Thrive assessed: 05/17/24 I am a: Patient What is your living situation today?: I have a steady place to live Within the past 12 months, did the food you bought not last and you didn't have the money to get more?: Never true Within the past 12 months, did you worry whether your food would run out before you got money to buy more?: Never true Do you have trouble paying for medicines?: No Do you have trouble getting transportation to medical appointments?: No Do you have trouble paying your heating and electricity bill?: No Do you have trouble taking care of your child, family member or friend?: No Do you have trouble with day-to-day activities such as bathing, preparing meals, shopping, managing finances, etc.?: No Are you currently unemployed and looking for a job?: No Are you interested in more education?: No Please select the resources that you would like help with: None Currently or been in a relationship where the following occur: No concerns reported THRIVE Score: 0 AUDIT C Alcohol Use Questionnaire (AUDIT-C) 1. How often do you have a drink containing alcohol?: 2-4 times a month 2. How many drinks containing alcohol do you have on a typical day when you are drinking?: 1 or 2 3. How often do you have six or more drinks on one occasion?: Never Total Score: 2 Score Reviewed/Action Taken: Yes WYATT-7 AMB Questionnaire WYATT-7 Date WYATT - 7 assessed: 02/17/24 Source: Developed by Drs. José Miguel Fischer, Katya Green, Kin Doan and colleagues, with an educational willi from [employer]. Review of Systems Const Denies chills, Denies fever(s) and Denies headache(s) Eyes Denies blurry vision ENT Denies headache(s), Denies nasal discharge, Denies nasal obstruction, Denies odynophagia and Denies sinus pain Card Denies chest pain at rest and Denies chest pain with activity Resp Denies cough and Denies hemoptysis GI Denies diarrhea, Denies odynophagia, Denies vomiting and Denies hematemesis Reports as per HPI Musc Denies abnormal gait Skin/Breast Reports as per HPI Neuro Denies Neuro-related abnormal movements, Denies Abnormal speech present, Denies abnormal gait and Denies headache(s) Psych Denies mood swings and Denies paranoia Endo Reports as per HPI Reddy/Lymph Reports as per HPI Aller/Immun Reports as per HPI Physical exam (Primary Care) Vital Signs: Last Vital Signs Pulse 73 05/17/24 10:30 BP 118/86 05/17/24 10:30 Pulse Ox 99 05/17/24 10:30 Oxygen Delivery Method Room Air 05/17/24 10:30 BMI result Body Mass Index 34.3 Tobacco/Smoking Status: Tobacco use Status Tobacco use date assessed 05/17/24 05/17/24 10:39 Patient Tobacco Use Status Former Tobacco user 05/17/24 10:39 Tobacco use type Cigarette 05/17/24 10:39 e-Cigarette/Vaping Use Never Used 05/17/24 10:39 Thrive Assessment: Date of Thrive Assessment Date Thrive assessed 05/17/24 05/17/24 10:39 Currently or been in a relationship where the following occur: No concerns reported Const General: cooperative, comfortable and no acute distress Orientation/consciousness: patient oriented x3 HENMT Head: Yes normocephalic and Yes atraumatic Eyes General: appearance normal, both eyes and all related structures Pupils: Equal, round and reactive pupils present EOM: EOMs intact bilaterally Neck Neck: Yes supple and No lymphadenopathy Thyroid: Thyroid normal Lymphatic: no lymphadenopathy noted Resp Effort & Inspection: normal respiratory effort and able to speak in complete sentences Auscultation: clear to auscultation bilaterally Cardio Heart sounds: S1 normal heart sound present and S2 normal heart sound present GI Palpation (GI): Soft to palpation and nontender Auscultation: normal bowel sounds General: Yes no CVA tenderness Back/Spine/Pelvis Back: no CVA tenderness Skin General skin exam: elasticity normal and turgor normal Neuro General: patient oriented x3 and gait normal Cranial nerves: Yes Equal, round and reactive pupils present Speech: No Abnormal speech present Extrem General: Yes normal exam except as noted and No edema Coding Level of Care Code Est Pt Level 3 (73959) Est Pt Prev Care >65y(10917) Diagnoses Encounter for general adult medical examination with abnormal findings Z00.01 Lipid disorder E78.9 Elevated fasting blood sugar R73.01 Class 1 obesity due to excess calories with serious comorbidity and body mass index (BMI) of 33.0 to 33.9 in adult E66.09; Z68.33 Obesity classification: adult class 1 (BMI 30 - 34.9) Serious obesity comorbidity presence: with serious comorbidity Body mass index: BMI 33.0-33.9 Enlarged RV (right ventricle) I51.7 On warfarin therapy Z79.01 Hypertension, essential I10 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 History of CVA (cerebrovascular accident) Z86.73 Assessment & Plan Assessment & Plan (1) Encounter for general adult medical examination with abnormal findings: Code(s): Z00.01 - Encounter for general adult medical examination with abnormal findings Category: Medical (2) Lipid disorder: Code(s): E78.9 - Disorder of lipoprotein metabolism, unspecified Category: Medical (3) Elevated fasting blood sugar: Code(s): R73.01 - Impaired fasting glucose Category: Medical (4) Obesity due to excess calories: Code(s): E66.09 - Other obesity due to excess calories Category: Medical Qualifiers: Obesity classification: adult class 1 (BMI 30 - 34.9) Serious obesity comorbidity presence: with serious comorbidity Body mass index: BMI 33.0-33.9 Qualified Code(s): E66.09 - Other obesity due to excess calories; Z68.33 - Body mass index [BMI] 33.0-33.9, adult (5) Enlarged RV (right ventricle): Code(s): I51.7 - Cardiomegaly Category: Medical (6) On warfarin therapy: Code(s): 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 - Discussion on the continuation or adjustment of warfarin with neurology after stroke. - Advice on reducing nocturnal fluid intake to manage urinary symptoms. - He had a colonoscopy December of this [address] [facility], next will be 2025 - obesity Assessment and Plan 69-year-old male with a history of stroke presenting for a follow-up visit and evaluation of urinary symptoms and yearly physical exam. He continues on war farin and expresses concerns regarding medication management post-stroke. He reports nocturia impacting quality of sleep, suggestive of a possible enlarged prostate. A comprehensive physical exam did not reveal acute abnormalities, and there were no new neurology or cardiology concerns raised. 1. Stroke The patient is currently on warfarin following a stroke. Discussion centered on the need for evaluation by neurology to determine whether to continue or adjust the warfarin treatment. An appointment with neurology will be scheduled to assess the need for ongoing anticoagulation versus alternate therapies.Patient had loop recorder which showed, no atrial ventricular arrhythmia was recorded as a cause of stroke 2. Longstanding Bladder Issues The patient has experienced frequent nighttime urination for years. A urination- modifying medication Flomax will be prescribed to help manage symptoms, with the expectation to review its effectiveness during the next scheduled visit. 3. Enlarged Prostate The patient reports nocturia, which may be indicative of benign prostatic hyperplasia. A new medication will be initiated to help alleviate urinary symptoms, and its effectiveness will be assessed in three months' time. Recommendations to reduce evening fluid intake have been provided. 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 - Adhere to the new medication regimen for urinary symptoms and report any issues. - Reduce fluid intake several hours before bedtime to lessen nocturia. - Conduct blood tests before the next appointment as advised. - Return in three months for follow-up and further evaluation of symptoms. - Continue current medications, including warfarin, unless otherwise directed by neurology. 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01 - Encounter for general adult medical examination with abnormal findings, Z68.33 - Body mass index [BMI] 33.0-33.9, adult, Z79.01 - 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 Panel Today E66.09 - Other obesity due to excess calories, E78.9 - Disorder of lipoprotein metabolism, unspecified, I10 - Essential (primary) hypertension, Z68.33 - Body mass index [BMI] 33.0-33.9, adult Referrals Neurology Referral Z86.73 - Personal history of transient ischemic attack (TIA), and cerebral infarction without residual deficits Medications: New tamsulosin (Flomax) 0.4 mg PO BEDTIME 90 caps 0RF
== END 2024-05-17 11:03 | disposition home or self-care (01) ==
PROVIDERS: PCP Internal Medicine; Visit Provider Internal Medicine
DX: Z00.00 Encounter for general adult medical examination without abnormal findings (principal); E78.9 Disorder of lipoprotein metabolism, unspecified; G62.1 Alcoholic polyneuropathy; R35.1 Nocturia; R73.01 Impaired fasting glucose; E66.09 Other obesity due to excess calories; Z68.33 Body mass index [BMI] 33.0-33.9, adult; I51.7 Cardiomegaly; Z79.01 Long term (current) use of anticoagulants; I10 Essential (primary) hypertension; Z86.73 Personal history of transient ischemic attack (TIA), and cerebral infarction without residual deficits

== ENCOUNTER → 2024-05-17 10:27 | Outpatient (BNVA) | payer MEDICARE, SELFPAY | PROVIDERS: PCP Internal Medicine; Visit Provider Internal Medicine | DX: Z00.01 Encounter for general adult medical examination with abnormal findings (principal); E78.9 Disorder of lipoprotein metabolism, unspecified; R73.01 Impaired fasting glucose; E66.09 Other obesity due to excess calories; Z68.33 Body mass index [BMI] 33.0-33.9, adult; I51.7 Cardiomegaly; I10 Essential (primary) hypertension; G62.1 Alcoholic polyneuropathy; Z79.01 Long term (current) use of anticoagulants; Z86.73 Personal history of transient ischemic attack (TIA), and cerebral infarction without residual deficits | CPT/HCPCS: 99212; 99397 ==

== ENCOUNTER 2024-05-31 09:26 | Outpatient (AMB) | payer MEDICARE, SELFPAY ==
[2024-05-31 10:00] LABS: Prothrombin Time Whole Bld POC 35.1 sec (11.1-13.5); ~PT, ~INR - Anti Coag Clinic 2.9 (0.9-1.1)
--- NOTE | 2024-05-31 10:09 | MHC.OFFVISCO ---
Intake Intake Visit Reasons: Anticoagulation Allergies hydrochlorothiazide Allergy (Unknown, Verified 05/31/24 09:54) muscle stiffness Medication List - Last Reconciled 05/31/24 by Freda Baker RN atenolol-chlorthalidone 50-25 mg 1 tab PO DAILY atorvastatin 40 mg PO BEDTIME clotrimazole-betamethasone 1-0.05 % 1 appl topical BID 30 days tamsulosin (Flomax) 0.4 mg PO BEDTIME warfarin See Protocol one to two tablets based on INR level PO daily; dosing to be adjusted as instructed by Anticoagulation Clinic Nursing Note INR: 2.9 in therapeutic range of 2-3 Medications and supplements reviewed No changes in health, diet, medications, or supplements, Denies any signs and symptoms of bleeding or bruising or clotting. Bleeding, bruising, clotting discussed Nutritional guidance given Dose: 7.5mg X 6 days and 5mg X 1 day F/U INR: 5 weeks at pt's request Patient verbalizes understanding of instructions given Anti-Coag Initial Assessment Social Hx Patient Tobacco Use Status: Former Tobacco user Tobacco use type: Cigarette alcohol intake: current Alcohol intake frequency: a few times a week Cardiovascular Hx: HTN and Other Blood Disorder Hx: Hyperlipidemia Hx: Prostate and Other Neurological Hx: Epilepsy/Seizures and Stroke/TIA Cancer HX: No Psych. Illness/Depression: No Coding Level of Care Code Est Patient Level 1 Diagnoses Current use of anticoagulant therapy Z79.01 Results AMB INR Fingerstick AMB INR Fingerstick 2.9 Last Edit by Freda Baker RN on 05/31/24 10:01 interface delay Assessment & Plan Assessment & Plan (1) Current use of anticoagulant therapy: Code(s): Z79.01 - [facility] (current) use of anticoagulants Category: Medical
== END 2024-05-31 10:13 | disposition home or self-care (01) ==
LOC: HO.ACS 09:26
PROVIDERS: PCP Internal Medicine; Visit Provider Internal Medicine
DX: Z79.01 Long term (current) use of anticoagulants (principal)

== ENCOUNTER → 2024-05-31 09:26 | Outpatient (BNVA) | payer MEDICARE, SELFPAY | PROVIDERS: PCP Internal Medicine; Visit Provider Internal Medicine | DX: Z86.73 Personal history of transient ischemic attack (TIA), and cerebral infarction without residual deficits (principal); Z79.01 Long term (current) use of anticoagulants; Z51.81 Encounter for therapeutic drug level monitoring | CPT/HCPCS: 85610; 99211 ==

== ENCOUNTER 2024-06-13 15:25 | Outpatient (REF) | payer MEDICARE, SELFPAY ==
[2024-06-13 16:49] LABS: Erythrocyte Sedimentation Rate 3 MM/HR (0-15)
[2024-06-14 03:51] LABS: Syphilis Screen Nonreactive (Nonreactive)
[2024-06-14 15:09] LABS: Cardiolipin IgG Ab 14.3 GPL-U/mL; Cardiolipin IgM Ab >112.0 MPL-U/mL
[2024-06-14 17:43] LABS: Lyme Abs Screen <0.90 index
[2024-06-17 00:53] LABS: DRVVT Confirmation Negative (Negative); Hexagonal Phase Neutralization Negative (Negative); PTT (LAC) Screen 42 sec (<=40)
[2024-06-17 21:44] LABS: Anti-Thrombin III Activity 103 % normal (80-135)
[2024-06-18 16:43] LABS: Factor V Leiden NEGATIVE
== END 2024-06-13 15:26 | disposition home or self-care (01) ==
LOC: HO.LAB 15:25
PROVIDERS: PCP Internal Medicine; Visit Provider Psychiatry & Neurology Neurology
DX: I63.50 Cerebral infarction due to unspecified occlusion or stenosis of unspecified cerebral artery (principal); I63.40 Cerebral infarction due to embolism of unspecified cerebral artery
CPT/HCPCS: 36415; 81241; 85300; 85597; 85598; 85613; 85652; 85730; 86147; 86617; 86618; 86780

== ENCOUNTER 2024-06-29 11:11 | Outpatient (AMB) | payer MEDICARE, SELFPAY ==
--- NOTE | 2024-06-29 11:28 | MHC.OFFVISCO ---
Intake Intake Visit Reasons: Anticoagulation Allergies hydrochlorothiazide Allergy (Unknown, Verified 06/29/24 11:17) muscle stiffness Medication List - Last Reconciled 06/29/24 by Aleah Trevino RN atenolol-chlorthalidone 50-25 mg 1 tab PO DAILY atorvastatin 40 mg PO BEDTIME clindamycin HCl 150 mg PO QID clotrimazole-betamethasone 1-0.05 % 1 appl topical BID 30 days tamsulosin (Flomax) 0.4 mg PO BEDTIME warfarin See Protocol one to two tablets based on INR level PO daily; dosing to be adjusted as instructed by Anticoagulation Clinic Nursing Note INR: 2.0- in therapeutic range of 2-3 Medications and supplements reviewed- finished course of antibiotics a couple of weeks ago per spouse take 4 clindamycin capsules prior to dental- no interaction with warfarin per [facility] No changes in health, diet, medications, or supplements, Denies any signs and symptoms of bleeding or bruising or clotting. Bleeding, bruising, clotting discussed Nutritional guidance given - avoid greens when restarting warfarin Dose: per dentist- pt holding warfarin yesterday and today, restart when ok with dentist- take 10mg day one if ok with dentist then cont reg dosing F/U INR: 07/05/24 Patient verbalizes understanding of instructions given Anti-Coag Initial Assessment Social Hx Patient Tobacco Use Status: Former Tobacco user Tobacco use type: Cigarette alcohol intake: current Alcohol intake frequency: a few times a week Cardiovascular Hx: HTN and Other Blood Disorder Hx: Hyperlipidemia Hx: Prostate and Other Neurological Hx: Epilepsy/Seizures and Stroke/TIA Cancer HX: No Psych. Illness/Depression: No Coding Level of Care Code Est Patient Level 1 Diagnoses Current use of anticoagulant therapy Z79.01 Results AMB INR Fingerstick AMB INR Fingerstick 2.0 Last Edit by Aleah Trevino RN on 06/29/24 11:33 interface delay Assessment & Plan Assessment & Plan (1) Current use of anticoagulant therapy: Code(s): Z79.01 - shelter (current) use of anticoagulants Category: Medical Medications: New clindamycin HCl takes four capsules prior to dental proc/cleaning 150 mg PO ONCE PRN
[2024-06-30 08:00] LABS: Prothrombin Time Whole Bld POC 23.4 sec (11.1-13.5)
== END 2024-06-29 11:43 | disposition home or self-care (01) ==
LOC: HO.ACS 11:11
PROVIDERS: PCP Internal Medicine; Visit Provider Internal Medicine
DX: Z79.01 Long term (current) use of anticoagulants (principal)

== ENCOUNTER → 2024-06-29 11:11 | Outpatient (BNVA) | payer MEDICARE, SELFPAY | PROVIDERS: PCP Internal Medicine; Visit Provider Internal Medicine | DX: Z86.73 Personal history of transient ischemic attack (TIA), and cerebral infarction without residual deficits (principal); Z79.01 Long term (current) use of anticoagulants; Z51.81 Encounter for therapeutic drug level monitoring | CPT/HCPCS: 85610; 99211 ==

== ENCOUNTER 2024-07-05 09:25 | Outpatient (AMB) | payer MEDICARE, SELFPAY ==
[2024-07-05 09:46] LABS: Prothrombin Time Whole Bld POC 18.8 sec (11.1-13.5); ~PT, ~INR - Anti Coag Clinic 1.6 (0.9-1.1)
--- NOTE | 2024-07-05 09:49 | MHC.OFFVISCO ---
Intake Intake Visit Reasons: Anticoagulation Allergies hydrochlorothiazide Allergy (Unknown, Verified 07/05/24 09:33) muscle stiffness Medication List - Last Reconciled 07/05/24 by Freda Baker RN atenolol-chlorthalidone 50-25 mg 1 tab PO DAILY atorvastatin 40 mg PO BEDTIME clindamycin HCl 150 mg PO QID clindamycin HCl 150 mg PO ONCE PRN clotrimazole-betamethasone 1-0.05 % 1 appl topical BID 30 days tamsulosin (Flomax) 0.4 mg PO BEDTIME warfarin See Protocol one to two tablets based on INR level PO daily; dosing to be adjusted as instructed by Anticoagulation Clinic Nursing Note INR: 1.6?out of therapeutic range of 2-3 Medications and supplements reviewed Patient status: s/p 1 tooth extraction on 06/29/24. Is on Clindamycin but this has no effect on INR. Warfarin held the 2 days before the procedure and the day of extraction so total of 3 days. When he restarted warfarin on the , he took 10mg as directed. Medications or supplements: no other changes Diet: usual diet for pt Denies any signs and symptoms of bleeding or clotting or unusual bruising Bleeding, bruising, clotting discussed Nutritional guidance given: to avoid greens for 2 days Dose: 10mg today (7.5mg), then 7.5mg daily until retest. F/U INR Date : 07/13/24?? Patient verbalizing understanding of instructions given. Anti-Coag Initial Assessment Social Hx Patient Tobacco Use Status: Former Tobacco user Tobacco use type: Cigarette alcohol intake: current Alcohol intake frequency: a few times a week Cardiovascular Hx: HTN and Other Blood Disorder Hx: Hyperlipidemia Hx: Prostate and Other Neurological Hx: Epilepsy/Seizures and Stroke/TIA Cancer HX: No Psych. 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
== END 2024-07-05 09:55 | disposition home or self-care (01) ==
LOC: HO.ACS 09:25
PROVIDERS: PCP Internal Medicine; Visit Provider Internal Medicine
DX: Z79.01 Long term (current) use of anticoagulants (principal)

== ENCOUNTER → 2024-07-05 09:25 | Outpatient (BNVA) | payer MEDICARE, SELFPAY | PROVIDERS: PCP Internal Medicine; Visit Provider Internal Medicine | DX: Z86.73 Personal history of transient ischemic attack (TIA), and cerebral infarction without residual deficits (principal); Z79.01 Long term (current) use of anticoagulants; Z51.81 Encounter for therapeutic drug level monitoring | CPT/HCPCS: 85610; 99211 ==

== ENCOUNTER 2024-07-13 09:24 | Outpatient (AMB) | payer MEDICARE, SELFPAY ==
[2024-07-13 09:55] LABS: Prothrombin Time Whole Bld POC 26.4 sec (11.1-13.5); ~PT, ~INR - Anti Coag Clinic 2.2 (0.9-1.1)
--- NOTE | 2024-07-13 10:02 | MHC.OFFVISCO ---
Intake Intake Visit Reasons: Anticoagulation Allergies hydrochlorothiazide Allergy (Unknown, Verified 07/13/24 09:49) muscle stiffness Medication List - Last Reconciled 07/13/24 by Shayy Hopkins RN atenolol-chlorthalidone 50-25 mg 1 tab PO DAILY atorvastatin 40 mg PO BEDTIME clindamycin HCl 150 mg PO QID clindamycin HCl 150 mg PO ONCE PRN clotrimazole-betamethasone 1-0.05 % 1 appl topical BID 30 days tamsulosin (Flomax) 0.4 mg PO BEDTIME warfarin See Protocol one to two tablets based on INR level PO daily; dosing to be adjusted as instructed by Anticoagulation Clinic Nursing Note NO CP,SOB,DIET/MED CHANGES,FALLS OR SX OF BLEEDING. PT.IS DONE WITH ANTIBIOTICS AFTER EXTRACTION ON 06/30. CONTINUE PREVIOUS DOSING AND FOLLOW-UP IN 5 WEEKS. GOOD UNDERSTANDING OF DOSING INSTR. Anti-Coag Initial Assessment Social Hx Patient Tobacco Use Status: Former Tobacco user Tobacco use type: Cigarette alcohol intake: current Alcohol intake frequency: a few times a week Cardiovascular Hx: HTN and Other Blood Disorder Hx: Hyperlipidemia Hx: Prostate and Other Neurological Hx: Epilepsy/Seizures and Stroke/TIA Cancer HX: No Psych. 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
== END 2024-07-13 10:04 | disposition home or self-care (01) ==
LOC: HO.ACS 09:24
PROVIDERS: PCP Internal Medicine; Visit Provider Internal Medicine
DX: Z79.01 Long term (current) use of anticoagulants (principal)

== ENCOUNTER 2024-08-08 08:30 | Outpatient (REF) | payer MEDICARE, SELFPAY ==
[2024-08-08 10:21] LABS: MANUAL DIFF FLAG NO
[2024-08-08 10:35] LABS: Basophils Percent Auto 0.6 % (0-2); Eosinophils Absolute Auto 0.2 X10*3/uL (0.0-0.4); Eosinophils Percent Auto 3.6 % (0-4); Hematocrit 49.4 % (42.0-52.0); Hemoglobin 16.2 g/dl (14.0-18.0); Imm Gran Abs Auto 0.01 X10*3/uL (0.00-0.03); Imm Gran Pct Auto 0.2 % (0.0-0.4); Lymphocytes Absolute Auto 2.1 X10*3/uL (1.2-4.9); Lymphocytes Percent Auto 34.2 % (20-40); Mean Corpuscular HGB Conc 32.8 g/dl (31.0-36.0); Mean Corpuscular Hemoglobin 29.5 pg (27.0-33.0); Mean Platelet Volume 11.7 fL (9.4-12.4); Monocytes Absolute Auto 0.5 X10*3/uL (0.1-1.2); Monocytes Percent Auto 8.6 % (2-11); Neutrophils Absolute Auto 3.3 x10*3/uL (2.0-8.3); Neutrophils Percent Auto 52.8 % (45-73); Platelet Count 195 X10*3/uL (160-400); Red Blood Count 5.49 X10*6/uL (4.60-5.80); Red Cell Distribution Width 12.5 % (11.0-16.0); White Blood Count 6.2 X10*3/uL (4.8-10.8)
[2024-08-08 11:18] LABS: Alanine Aminotransferase 24 U/L (0-40); Alkaline Phosphatase 52 U/L (39-117); Anion Gap 12 (12-20); Aspartate Amino Transferase 28 U/L (5-37); Bilirubin Total 0.8 mg/dL (0.0-1.0); Blood Urea Nitrogen 12 mg/dL (9-16); Calcium 9.5 mg/dL (8.4-10.2); Carbon Dioxide 32 mmol/L (22-29); Chloride 104 mmol/L (96-108); Estimated Glomerular Filt Rate > 60; Glucose Random 148 mg/dL (60-115); Potassium 4.1 mmol/L (3.3-5.1); Sodium 144 mmol/L (135-145); TSH reflex Free T4 1.92 uIU/mL (0.32-4.0); Total Protein 7.1 g/dL (6.5-8.0)
[2024-08-10 01:48] LABS: LDL Cholesterol Direct 80 mg/dL (<100)
== END 2024-08-08 08:31 | disposition home or self-care (01) ==
LOC: HO.HMGCLDS 08:30
PROVIDERS: PCP Internal Medicine; Visit Provider Internal Medicine
DX: Z00.01 Encounter for general adult medical examination with abnormal findings (principal); E78.9 Disorder of lipoprotein metabolism, unspecified; R73.01 Impaired fasting glucose; E66.09 Other obesity due to excess calories; Z68.33 Body mass index [BMI] 33.0-33.9, adult; I51.7 Cardiomegaly; Z79.01 Long term (current) use of anticoagulants; I10 Essential (primary) hypertension; Z86.73 Personal history of transient ischemic attack (TIA), and cerebral infarction without residual deficits; G62.1 Alcoholic polyneuropathy
CPT/HCPCS: 36415; 80053; 83721; 84443; 85025

== ENCOUNTER 2024-08-15 09:23 | Outpatient (AMB) | payer MEDICARE, SELFPAY ==
[2024-08-15 09:35] LABS: Prothrombin Time Whole Bld POC 34.6 sec (11.1-13.5); ~PT, ~INR - Anti Coag Clinic 2.9 (0.9-1.1)
--- NOTE | 2024-08-15 09:50 | MHC.OFFVISCO ---
Intake Intake Visit Reasons: Anticoagulation Allergies hydrochlorothiazide Allergy (Unknown, Verified 08/15/24 09:24) muscle stiffness Medication List - Last Reconciled 08/15/24 by Freda Baker RN atenolol-chlorthalidone 50-25 mg 1 tab PO DAILY atorvastatin 40 mg PO BEDTIME clindamycin HCl 150 mg PO QID clindamycin HCl 150 mg PO ONCE PRN clotrimazole-betamethasone 1-0.05 % 1 appl topical BID 30 days tamsulosin (Flomax) 0.4 mg PO BEDTIME warfarin See Protocol one to two tablets based on INR level PO daily; dosing to be adjusted as instructed by Anticoagulation Clinic Nursing Note Pt to ACS accompanied by INR: 2.9 in therapeutic range of 2-3 Medications and supplements reviewed No changes in health, diet, medications, or supplements, Pt states he saw his neurologist about a month or so ago and had some blood testing that showed he needed to stay on warfarin. Lab work reviewed and pt was positive for antiphospholipid antibodies. Denies any signs and symptoms of bleeding or bruising or clotting. Bleeding, bruising, clotting discussed Nutritional guidance given to have a serving of greens today Dose: same dose of 7.5mg X 6 days and 5mg X 1 day (Mon) F/U INR: 5 weeks per pt request Patient verbalizes understanding of instructions given Anti-Coag Initial Assessment Social Hx Patient Tobacco Use Status: Former Tobacco user Tobacco use type: Cigarette alcohol intake: current Alcohol intake frequency: a few times a week Cardiovascular Hx: HTN and Other Blood Disorder Hx: Hyperlipidemia Hx: Prostate and Other Neurological Hx: Epilepsy/Seizures and Stroke/TIA Cancer HX: No Psych. 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
== END 2024-08-15 09:54 | disposition home or self-care (01) ==
LOC: HO.ACS 09:23
PROVIDERS: PCP Internal Medicine; Visit Provider Internal Medicine
DX: Z79.01 Long term (current) use of anticoagulants (principal)

== ENCOUNTER → 2024-08-15 09:23 | Outpatient (BNVA) | payer MEDICARE, SELFPAY | PROVIDERS: PCP Internal Medicine; Visit Provider Internal Medicine | DX: Z86.73 Personal history of transient ischemic attack (TIA), and cerebral infarction without residual deficits (principal); Z79.01 Long term (current) use of anticoagulants; Z51.81 Encounter for therapeutic drug level monitoring | CPT/HCPCS: 85610; 99211 ==

== ENCOUNTER 2024-08-17 09:43 | Outpatient (AMB) | payer MEDICARE, SELFPAY ==
--- NOTE | 2024-08-17 09:41 | A.OFFPC_ITS ---
Vital Signs 08/17/24 09:45 Height 6 ft Weight 257 lb BMI 34.9 BP 112/80 Blood Pressure Location Lt brachial Respiration 16 Pulse 87 Pulse Source Pulse Oximeter Temp 98.3 F Temp Source Oral Pulse Oximetry (%) 98 Oxygen Delivery Method Room Air Intake Visit Reasons: 3 months f/up Allergies hydrochlorothiazide Allergy (Unknown, Verified 08/17/24 09:41) muscle stiffness Medication List - Last Reconciled 08/17/24 by Ronal Marino MD atenolol-chlorthalidone 50-25 mg 1 tab PO DAILY atorvastatin 40 mg PO BEDTIME tamsulosin (Flomax) 0.4 mg PO BEDTIME warfarin See Protocol one to two tablets based on INR level PO daily; dosing to be adjusted as instructed by Anticoagulation Clinic Tobacco use date assessed: 08/17/24 Fall risk assessment: No Falls in past year Last assessed Fall Risk: 08/17/24 Dental Screening Dental Screen Date: 08/17/24 Did you have a dental visit in the last 12 months?: Yes Did you have a dental problem in the last 6 months where you did not have access to dental care?: No Was dental information given to patient?: Patient has dentist HPI 3 months f/up HPI Details Regular follow-up appointment - The patient is a 69-year-old male pres enting with benign prostatic hyperplasia. - Reports frequent nocturnal urination w ithout difficulty initiating urination, managed with Flomax with limited effectiveness. - Opted to suspend Flomax treatment temp orarily to evaluate changes in symptoms. - History of well-controlled hypertensio n managed with Atenolol and Chlorthalidone. - Hyperlipidemia is treated with Atorvas tatin - Under anticoagulation therapy with War farin, with stable INR levels. History of CVA - Reports history of right knee replacem ent and existing pain in the left knee indicative of osteoarthritis. Problem List - Benign Prostatic Hyperplasia - Hypertension - Hyperlipidemia - Anticoagulation Therapy - Osteoarthrosis of the Right Knee (stat us post-replacement) - Osteoarthrosis of the Left Knee Patient Instructions - Discontinue Flomax upon finishing the current supply and monitor urinary symp toms. Patient would like to stop - Continue current hypertension and hype rlipidemia medication as prescribed. - Monitor INR levels regularly for antic oagulation stability. - Target weight reduction through calori e intake management and continue low- impact exercises such as cycling to accommodate knee pain. - Return for follow-up in 4 months to re assess symptoms and medication efficacy, particularly concerning the prostate concerns. - Seek medical attention if urination di fficulties worsen or nocturia increases significantly. Review of Systems - General: No fever no chills - Neurological: No headaches no dizziness - Ear nose throat: No sore throat no hearing difficulty no ear pain - Cardiovascular: No syncope, no chest pain, no palpitations - Gastrointestinal: No nausea vomiting or diarrhea - Endocrine: No polyuria polydipsia no heat intolerance - Genitourinary: No dysuria , no blood in urine Physical Exam General: No acute distress HEENT: No acute findings Neck: Supple Respiratory system: Able to talk in full sentences, no audible wheeze cardiovascular: S1-S2 regular in rate and rhythm, blood pressure 112/80 Gastrointestinal: No pain Extremities: No new findings, no swelling of ankles 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 awake oriented x3 motor sensory intact Skin: Normal turgor PFSH Medical History Antiphospholipid antibody positive BPH (benign prostatic hyperplasia) CVA (cerebral vascular accident) Hypertension, essential Surgical History History of esophagogastroduodenoscopy (EGD) Hx of colonoscopy History of total right knee replacement Family History Father Stomach cancer Paternal Grandfather Stomach cancer Social History Household Members: Spouse Housing: House Alcohol intake: current Alcohol intake frequency: a few times a week Patient Tobacco Use Status: Former Tobacco user Tobacco use type: Cigarette Years Smoked: 30 +/- e-Cigarette/Vaping Use: Never Used Substance Use Type: Marijuana service: No Current occupational status: employed and retired 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 1. Little interest or pleasure in doing things: not at all 2. Feeling down, depressed, or hopeless: not at all 3. Trouble falling or staying asleep, or sleeping too much: not at all 4. Feeling tired or having little energy: not at all 5. Poor appetite or overeating: not at all 6. Feeling bad about yourself - or that you are a failure or have let yourself or your family down: not at all 7. Trouble concentrating on things, such as reading the newspaper or watching television: not at all 8. Moving or speaking so slowly that other people could have noticed. Or the opposite - being so fidgety or restless that you have been moving around a lot more than usual: not at all 9. Thoughts that you would be better off or of hurting yourself in some way: not at all Total score: 0 Depression Screening Interpretation: Negative Depression Screening Done: Yes 24703 - PHQ-9 Billing: Yes Source: Developed by Drs. José Miguel Fischer, Katya Green, Kin Doan and colleagues, with an educational willi from [employer]. Thrive Questionnaire Date Thrive assessed: 08/10/24 I am a: Patient What is your living situation today?: I have a steady place to live Within the past 12 months, did the food you bought not last and you didn't have the money to get more?: Never true Within the past 12 months, did you worry whether your food would run out before you got money to buy more?: Never true Do you have trouble paying for medicines?: No Do you have trouble getting transportation to medical appointments?: No Do you have trouble paying your heating and electricity bill?: No Do you have trouble taking care of your child, family member or friend?: No Do you have trouble with day-to-day activities such as bathing, preparing meals, shopping, managing finances, etc.?: No Are you currently unemployed and looking for a job?: No Are you interested in more education?: No Please select the resources that you would like help with: None Currently or been in a relationship where the following occur: No concerns reported THRIVE Score: 0 AUDIT C Alcohol Use Questionnaire (AUDIT-C) 1. How often do you have a drink containing alcohol?: 2-4 times a month 2. How many drinks containing alcohol do you have on a typical day when you are drinking?: 1 or 2 3. How often do you have six or more drinks on one occasion?: Never Total Score: 2 WYATT-7 AMB Questionnaire WYATT-7 Date WYATT - 7 assessed: 08/17/24 Feeling nervous, anxious, or on edge: 0 = Not at all Not being able to stop or control worryin = Not at all Worrying too much about different things: 0 = Not at all Trouble relaxin = Not at all Being so restless that it is hard to sit still: 0 = Not at all Becoming easily annoyed or irritable: 0 = Not at all Feeling afraid as if something awful might happen: 0 = Not at all Total WYATT-7 score (0-4 normal; 5-9 mild; 10-14 moderate; 15-21 severe): 0 Source: Developed by Drs. José Miguel Fischer, Katya Green, Kin Doan and colleagues, with an educational willi from [employer]. Physical exam (Primary Care) Vital Signs: Last Vital Signs Temp 98.3 F 08/17/24 09:45 Pulse 87 08/17/24 09:45 Resp 16 08/17/24 09:45 BP 112/80 08/17/24 09:45 Pulse Ox 98 08/17/24 09:45 Oxygen Delivery Method Room Air 08/17/24 09:45 BMI result Body Mass Index 34.9 Tobacco/Smoking Status: Tobacco use Status Tobacco use date assessed 08/17/24 08/17/24 09:42 Patient Tobacco Use Status Former Tobacco user 08/17/24 09:42 Tobacco use type Cigarette 08/17/24 09:42 e-Cigarette/Vaping Use Never Used 08/17/24 09:42 Depression Screening Interpretation: Negative Thrive Assessment: Date of Thrive Assessment Date Thrive assessed 08/10/24 08/17/24 09:42 Currently or been in a relationship where the following occur: No concerns reported Coding Level of Care Code Est Pt Level 4 (93436) Complex EM visit Add On G2211 Diagnoses Hypertension, essential I10 Lipid disorder E78.9 Class 1 obesity due to excess calories with serious comorbidity and body mass index (BMI) of 33.0 to 33.9 in adult E66.09; Z68.33 Body mass index: BMI 33.0-33.9 Obesity classification: adult class 1 (BMI 30 - 34.9) Serious obesity comorbidity presence: with serious comorbidity Elevated fasting blood sugar R73.01 Frequency of urination R35.0 On warfarin therapy Z79.01 Seizures R56.9 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 History of CVA (cerebrovascular accident) Z86.73 Additional Codes PHQ-9 - 33153 - PHQ-9 Billing: Yes ([id number]) Assessment & Plan Assessment & Plan (1) Hypertension, essential: Code(s): I10 - Essential (primary) hypertension Category: Medical (2) Lipid disorder: Code(s): E78.9 - Disorder of lipoprotein metabolism, unspecified Category: Medical (3) Obesity due to excess calories: Code(s): E66.09 - Other obesity due to excess calories Category: Medical Qualifiers: Body mass index: BMI 33.0-33.9 Obesity classification: adult class 1 (BMI 30 - 34.9) Serious obesity comorbidity presence: with serious comorbidity Qualified Code(s): E66.09 - Other obesity due to excess calories; Z68.33 - Body mass index [BMI] 33.0-33.9, adult (4) Elevated fasting blood sugar: Code(s): R73.01 - Impaired fasting glucose Category: Medical (5) Frequency of urination: Code(s): R35.0 - Frequency of micturition Category: Medical (6) On warfarin therapy: Code(s): Z79.01 - group home (current) use of anticoagulants Category: Medical (7) Seizures: Code(s): R56.9 - Unspecified convulsions Category: Medical (8) Alcoholic peripheral neuropathy: Code(s): G62.1 - Alcoholic polyneuropathy Category: Medical (9) History of CVA (cerebrovascular accident): Code(s): Z86.73 - Personal history of transient ischemic attack (TIA), and cerebral infarction without residual deficits Category: Medical Plan Regular follow-up appointment - The patient is a 69-year-old male presenting with benign prostatic hyperplasia. - Reports frequent nocturnal urination without difficulty initiating urination, managed with Flomax with limited effectiveness. - Opted to suspend Flomax treatment temporarily to evaluate changes in symptoms. - History of well-controlled hypertension managed with Atenolol and Chlorthalidone. - Hyperlipidemia is treated with Atorvastatin - Under anticoagulation therapy with Warfarin, with stable INR levels. History of CVA - Reports history of right knee replacement and existing pain in the left knee indicative of osteoarthritis. - patient has stopped drinking alcohol, however have mild alcoholic neuropathy - history of CVA and history of seizure stable, established with the Neurology Problem List - Benign Prostatic Hyperplasia - Hypertension - Hyperlipidemia - Anticoagulation Therapy - Osteoarthrosis of the Right Knee (status post-replacement) - Osteoarthrosis of the Left Knee Patient Instructions - Discontinue Flomax upon finishing the current supply and monitor urinary symptoms. Patient would like to stop - Continue current hypertension and hyperlipidemia medication as prescribed. - Monitor INR levels regularly for anticoagulation stability. - Target weight reduction through calorie intake management and continue low- impact exercises such as cycling to accommodate knee pain. - Return for follow-up in 4 months to reassess symptoms and medication efficacy, particularly concerning the prostate concerns. - Seek medical attention if urination difficulties worsen or nocturia increases significantly. 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 Panel 4 Months E66.09 - Other obesity due to excess calories, E78.9 - Disorder of lipoprotein metabolism, unspecified, G62.1 - Alcoholic polyneuropathy, I10 - Essential (primary) hypertension, R35.0 - Frequency of micturition, R56.9 - Unspecified convulsions, R73.01 - Impaired fasting glucose, Z68.33 - Body mass index [BMI] 33.0-33.9, adult, Z79.01 - group home (current) use of anticoagulants, Z86.73 - Personal history of transient is chemic attack (TIA), and cerebral infarction without residual deficits Medications: On Hold tamsulosin (Flomax) Hold Comment: Doctor's Order 0.4 mg PO BEDTIME 90 caps 0RF
[2024-08-17 09:45] VITALS: BP 112/80; PULSE 87; RESP 16; TEMP 36.8; O2SAT 98; BMI 34.9
== END 2024-08-17 10:00 | disposition home or self-care (01) ==
PROVIDERS: PCP Internal Medicine; Visit Provider Internal Medicine
DX: I10 Essential (primary) hypertension (principal); Z68.33 Body mass index [BMI] 33.0-33.9, adult; R56.9 Unspecified convulsions; G62.1 Alcoholic polyneuropathy; E78.9 Disorder of lipoprotein metabolism, unspecified; E66.09 Other obesity due to excess calories; R73.01 Impaired fasting glucose; R35.0 Frequency of micturition; Z79.01 Long term (current) use of anticoagulants; Z86.73 Personal history of transient ischemic attack (TIA), and cerebral infarction without residual deficits

== ENCOUNTER → 2024-08-17 09:43 | Outpatient (BNVA) | payer MEDICARE, SELFPAY | PROVIDERS: PCP Internal Medicine; Visit Provider Internal Medicine | DX: I10 Essential (primary) hypertension (principal); E78.9 Disorder of lipoprotein metabolism, unspecified; E66.09 Other obesity due to excess calories; Z68.33 Body mass index [BMI] 33.0-33.9, adult; R73.01 Impaired fasting glucose; R35.0 Frequency of micturition; R56.9 Unspecified convulsions; G62.1 Alcoholic polyneuropathy; Z79.01 Long term (current) use of anticoagulants; Z86.73 Personal history of transient ischemic attack (TIA), and cerebral infarction without residual deficits | CPT/HCPCS: 96127; 99212 ==

== ENCOUNTER 2024-09-19 09:25 | Outpatient (AMB) | payer MEDICARE, SELFPAY ==
[2024-09-19 09:41] LABS: Prothrombin Time Whole Bld POC 38.6 sec (11.1-13.5); ~PT, ~INR - Anti Coag Clinic 3.2 (0.9-1.1)
--- NOTE | 2024-09-19 09:50 | MHC.OFFVISCO ---
Intake Intake Visit Reasons: Anticoagulation Allergies hydrochlorothiazide Allergy (Unknown, Verified 09/19/24 09:30) muscle stiffness Medication List - Last Reconciled 09/19/24 by Freda Baker RN atenolol-chlorthalidone 50-25 mg 1 tab PO DAILY atorvastatin 40 mg PO BEDTIME warfarin See Protocol one to two tablets based on INR level PO daily; dosing to be adjusted as instructed by Anticoagulation Clinic Nursing Note INR: 3.2 out of therapeutic range of 2-3 Medications and supplements reviewed Patient status: well Medications or supplements: stopped tamsulosin because it didn't help Diet: usual diet for pt Denies any signs and symptoms of bleeding or clotting or unusual bruising Bleeding, bruising, clotting discussed Nutritional guidance given: to have a serving of greens today Dose: 7.5mg X 6 days and 5mg X 1 day (Thu) F/U INR Date : 5 weeks per pt request?? Patient verbalizing understanding of instructions given. Anti-Coag Initial Assessment Social Hx Patient Tobacco Use Status: Former Tobacco user Tobacco use type: Cigarette alcohol intake: current Alcohol intake frequency: a few times a week Cardiovascular Hx: HTN and Other Blood Disorder Hx: Hyperlipidemia Hx: Prostate and Other Neurological Hx: Epilepsy/Seizures and Stroke/TIA Cancer HX: No Psych. Illness/Depression: No Questionnaires HAS-BLED Does the patient had uncontrolled Hypertension?: Yes Does the patient have renal disease?: No Does the patient have liver disease?: No Does the patient have a history of stroke?: No Has the patient had major bleeding or predisposition to bleeding?: No Does the patient have labile INRs?: No Is the patient over 65 years of age?: Yes Is the patient on medications that gives them a predisposition to bleeding?: Yes Does the patient use alcohol?: Yes HAS-BLED Score: 4 CHADSVASC Age: 66-74 Gender: Male Does the patient have a history of CHF?: No Does the patient have a history of Hypertension?: Yes Does the patient have a history of Stroke/TIA/Thromboembolism?: Yes Does the patient have a history of Vascular Disease (prior MA, PAD or aortic plaque)?: No Does the patient have a history of Diabetes?: No CHADS VACS Score: 4 Lori Prediction Score Rsk VTE Active Cancer: No Previous VTE, excluding superficial vein thrombosis: No Reduced mobility: No Already known Thrombophilic Condition: Yes With-in last month Trauma and/or Surgery: No Elderly 70 year or older: Yes Heart and/or Respiratory Failure: No Acute Myocardial infarction and/or Ischemic Stroke: No Acute Infection and/or Rheumatologic Disorder: No Obesity (BMI 30 or greater): Yes Ongoing Hormonal Treatment: No Score: 5 Lori Score less than 4; Low Risk of VTE Lori Score 4 or greater; High Risk of VTE Coding Level of Care Code Est Patient Level 1 Diagnoses Current use of anticoagulant therapy Z79.01 Assessment & Plan Assessment & Plan (1) Current use of anticoagulant therapy: 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
== END 2024-09-19 10:02 | disposition home or self-care (01) ==
LOC: HO.ACS 09:25
PROVIDERS: PCP Internal Medicine; Visit Provider Internal Medicine Medical Oncology
DX: Z79.01 Long term (current) use of anticoagulants (principal)

== ENCOUNTER → 2024-09-19 09:25 | Outpatient (BNVA) | payer MEDICARE, SELFPAY | PROVIDERS: PCP Internal Medicine; Visit Provider Internal Medicine Medical Oncology | DX: Z86.73 Personal history of transient ischemic attack (TIA), and cerebral infarction without residual deficits (principal); Z51.81 Encounter for therapeutic drug level monitoring; Z79.01 Long term (current) use of anticoagulants | CPT/HCPCS: 85610; 99211 ==

== ENCOUNTER 2024-10-24 09:41 | Outpatient (AMB) | payer MEDICARE, SELFPAY ==
[2024-10-24 09:50] LABS: ~PT, ~INR - Anti Coag Clinic 2.3 (0.9-1.1)
--- NOTE | 2024-10-24 09:58 | MHC.OFFVISCO ---
Intake Intake Visit Reasons: Anticoagulation Allergies hydrochlorothiazide Allergy (Unknown, Verified 10/24/24 09:41) muscle stiffness Medication List - Last Reconciled 10/24/24 by Freda Baker RN atenolol-chlorthalidone 50-25 mg 1 tab PO DAILY atorvastatin 40 mg PO BEDTIME warfarin See Protocol one to two tablets based on INR level PO daily; dosing to be adjusted as instructed by Anticoagulation Clinic Nursing Note INR: 2.3 in therapeutic range of 2-3 Medications and supplements reviewed No changes in health, diet, medications, or supplements, Denies any signs and symptoms of bleeding or bruising or clotting. Bleeding, bruising, clotting discussed Nutritional guidance given Dose: 7.5mg X 5 days and 5mg X 1 day F/U INR: 4 weeks Patient verbalizes understanding of instructions given Anti-Coag Initial Assessment Social Hx Patient Tobacco Use Status: Former Tobacco user Tobacco use type: Cigarette alcohol intake: current Alcohol intake frequency: a few times a week Cardiovascular Hx: HTN and Other Blood Disorder Hx: Hyperlipidemia Hx: Prostate and Other Neurological Hx: Epilepsy/Seizures and Stroke/TIA Cancer HX: No Psych. Illness/Depression: No Coding Level of Care Code Est Patient Level 1 Diagnoses Current use of anticoagulant therapy Z79.01 Results AMB INR Fingerstick AMB INR Fingerstick 2.3 Last Edit by Freda Baker RN on 10/24/24 09:51 interface delay Assessment & Plan Assessment & Plan (1) Current use of anticoagulant therapy: Code(s): Z79.01 - nursing home (current) use of anticoagulants Category: Medical
== END 2024-10-24 09:59 | disposition home or self-care (01) ==
LOC: HO.ACS 09:41
PROVIDERS: PCP Internal Medicine; Visit Provider Internal Medicine Medical Oncology
DX: Z79.01 Long term (current) use of anticoagulants (principal)

== ENCOUNTER → 2024-10-24 09:41 | Outpatient (BNVA) | payer MEDICARE, SELFPAY | PROVIDERS: PCP Internal Medicine; Visit Provider Internal Medicine Medical Oncology | DX: Z86.73 Personal history of transient ischemic attack (TIA), and cerebral infarction without residual deficits (principal); Z79.01 Long term (current) use of anticoagulants; Z51.81 Encounter for therapeutic drug level monitoring | CPT/HCPCS: 85610; 99211 ==

== ENCOUNTER 2024-11-28 08:00 | Outpatient (AMB) | payer MEDICARE, SELFPAY ==
[2024-11-28 08:07] LABS: Prothrombin Time Whole Bld POC 22.1 sec (11.1-13.5); ~PT, ~INR - Anti Coag Clinic 1.8 (0.9-1.1)
--- NOTE | 2024-11-28 08:15 | MHC.OFFVISCO ---
Intake Intake Visit Reasons: Anticoagulation Allergies hydrochlorothiazide Allergy (Unknown, Verified 11/28/24 08:02) muscle stiffness Medication List - Last Reconciled 11/28/24 by Freda Baker RN atenolol-chlorthalidone 50-25 mg 1 tab PO DAILY atorvastatin 40 mg PO BEDTIME warfarin See Protocol one to two tablets based on INR level PO daily; dosing to be adjusted as instructed by Anticoagulation Clinic Nursing Note INR 1.8?out of therapeutic range of 2.0-3.0 Pt is having a dental implant today, 2 posts. Pt held warfarin X 2 days per dentist Medications and supplements reviewed Patient status: well Medications or supplements: no changes Diet: usual diet for pt Denies any signs and symptoms of bleeding or clotting or unusual bruising Bleeding, bruising, clotting discussed Nutritional guidance given: to avoid greens this week Dose: if able to restart warfarin today, pt instructed to take 7.5mg then 10 mg X 2 days then resume usual dose of 7.5mg X 6 days and 5mg X 1 day F/U INR Date: 10 days?? Patient verbalizing understanding of instructions given. Anti-Coag Initial Assessment Social Hx Patient Tobacco Use Status: Former Tobacco user Tobacco use type: Cigarette alcohol intake: current Alcohol intake frequency: a few times a week Cardiovascular Hx: HTN and Other Blood Disorder Hx: Hyperlipidemia Hx: Prostate and Other Neurological Hx: Epilepsy/Seizures and Stroke/TIA Cancer HX: No Psych. Illness/Depression: No Coding Level of Care Code Est Patient Level 1 Diagnoses Current use of anticoagulant therapy Z79.01 Assessment & Plan Assessment & Plan (1) Current use of anticoagulant therapy: Code(s): Z79.01 - assisted (current) use of anticoagulants Category: Medical
== END 2024-11-28 08:19 | disposition home or self-care (01) ==
LOC: HO.ACS 08:00
PROVIDERS: PCP Internal Medicine; Visit Provider Internal Medicine Medical Oncology
DX: Z79.01 Long term (current) use of anticoagulants (principal)

== ENCOUNTER → 2024-11-28 08:00 | Outpatient (BNVA) | payer MEDICARE, SELFPAY | PROVIDERS: PCP Internal Medicine; Visit Provider Internal Medicine Medical Oncology | DX: Z86.73 Personal history of transient ischemic attack (TIA), and cerebral infarction without residual deficits (principal); Z79.01 Long term (current) use of anticoagulants; Z51.81 Encounter for therapeutic drug level monitoring | CPT/HCPCS: 85610; 99211 ==

== ENCOUNTER 2024-12-08 10:12 | Outpatient (AMB) | payer MEDICARE, SELFPAY ==
--- NOTE | 2024-12-08 10:26 | MHC.OFFVISCO ---
Intake Intake Visit Reasons: Anticoagulation Allergies hydrochlorothiazide Allergy (Unknown, Verified 12/08/24 10:12) muscle stiffness Medication List - Last Reconciled 12/08/24 by Cherie Gallegso RN atenolol-chlorthalidone 50-25 mg 1 tab PO DAILY atorvastatin 40 mg PO BEDTIME clindamycin HCl 300 mg PO TID warfarin See Protocol one to two tablets based on INR level PO daily; dosing to be adjusted as instructed by Anticoagulation Clinic Nursing Note INR: 2.2 in therapeutic range Medications and supplements reviewed S/P Dental implant last week- with warfarin hold and anbx - healing and doing well, still has semi soft foods while healing Denies any signs and symptoms of bleeding or bruising or clotting. Bleeding, bruising, clotting discussed Nutritional guidance given- avoid greens 3 more days then resume usual diet Dose: same 5mg thursday/ 7.5mg x 6 days F/U INR: 1 month per pt request atient verbalizes understanding of instructions given Anti-Coag Initial Assessment Social Hx Patient Tobacco Use Status: Former Tobacco user Tobacco use type: Cigarette alcohol intake: current Alcohol intake frequency: a few times a week Cardiovascular Hx: HTN and Other Blood Disorder Hx: Hyperlipidemia Hx: Prostate and Other Neurological Hx: Epilepsy/Seizures and Stroke/TIA Cancer HX: No Psych. Illness/Depression: No Coding Level of Care Code Est Patient Level 1 Diagnoses Current use of anticoagulant therapy Z79.01 Results AMB INR Fingerstick AMB INR Fingerstick 2.2 Last Edit by Cherie Gallegos RN on 12/08/24 10:22 MANUAL ENTRY Assessment & Plan Assessment & Plan (1) Current use of anticoagulant therapy: Code(s): Z79.01 - long term (current) use of anticoagulants Category: Medical
[2024-12-08 10:33] LABS: Prothrombin Time Whole Bld POC 26.8 sec (11.1-13.5); ~PT, ~INR - Anti Coag Clinic 2.2 (0.9-1.1)
== END 2024-12-08 10:50 | disposition home or self-care (01) ==
LOC: HO.ACS 10:12
PROVIDERS: PCP Internal Medicine; Visit Provider Internal Medicine Medical Oncology
DX: Z79.01 Long term (current) use of anticoagulants (principal)

== ENCOUNTER → 2024-12-08 10:12 | Outpatient (BNVA) | payer MEDICARE, SELFPAY | PROVIDERS: PCP Internal Medicine; Visit Provider Internal Medicine Medical Oncology | DX: Z79.01 Long term (current) use of anticoagulants (principal) | CPT/HCPCS: 85610; 99211 ==

== ENCOUNTER 2024-12-20 08:56 | Outpatient (AMB) | payer MEDICARE, SELFPAY ==
[2024-12-20 08:59] VITALS: BP 132/90; PULSE 92; TEMP 36.8; O2SAT 96; BMI 33.4
--- NOTE | 2024-12-20 08:59 | MHC.PC.OV ---
Vital Signs 12/20/24 08:59 Height 6 ft Weight 246 lb 2 oz BMI 33.4 BP 132/90 H Blood Pressure Location Rt brachial Position Sitting Pulse 92 Pulse Source Pulse Oximeter Temp 98.2 F Temp Source Oral Pulse Oximetry (%) 96 Oxygen Delivery Method Room Air Intake Visit Reasons: 4m follow up Projects Manager Required: No Allergies hydrochlorothiazide Allergy (Unknown, Verified 12/20/24 09:03) muscle stiffness Medication List - Last Reconciled 12/20/24 by Ronal Marino MD atenolol-chlorthalidone 50-25 mg 1 tab PO DAILY atorvastatin 40 mg PO BEDTIME clindamycin HCl 300 mg PO TID [id number]-GO 3.5-10,000-1 mg/mL-unit/mL-% 4 drps otic (ear) left Q8H 7 days warfarin See Protocol one to two tablets based on INR level PO daily; dosing to be adjusted as instructed by Anticoagulation Clinic Tobacco use date assessed: 12/20/24 Fall risk assessment: No Falls in past year Last assessed Fall Risk: 12/20/24 Dental Screening Dental Screen Date: 08/17/24 Did you have a dental visit in the last 12 months?: Yes Did you have a dental problem in the last 6 months where you did not have access to dental care?: No Was dental information given to patient?: Patient has dentist HPI 4m follow up HPI Details History - The patient is a 69-year-old male presenting with a need for follow-up on chronic conditions and evaluation of hearing difficulties. - Has been experiencing nocturia twice per night after discontinuing Flomax, with no significant change in symptoms post-medication. - Has a known history of difficulty with hearing and a feeling of wax buildup in the ears. He is using earwax removal drops, but there is still a sensation of needing further cleaning and fatiguing. He reports waxing worse with swimming activities, causing further blockage and hearing difficulty on the left side. - He is monitoring blood pressure irregularly at home, with recent measurements reported around 130s/90s. He acknowledges stress related to family dynamics potentially affecting blood pressure readings. 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 - Reports living in a shared household with a stepson undergoing a divorce, contributing to heightened stress levels. - Recreational swimming noted, which exacerbates ear wax issues. Family History: - Father had stomach cancer. - Grandfather had stomach cancer. - No known family history of prostate or ear issues. Problem List - Hypertension - Hyperlipidemia - Chronic anticoagulation therapy for TIA - Cerumen impaction and hearing difficulties - stress at home - BMI elevated at 33.4 Patient Instructions - Monitor blood pressure at home regularly and document readings to discuss in future appointments. - Undergo ear irrigation for left ear today - sending ear drops for swimmer's ear right side - Schedule follow-up appointment in four months and complete a fasting blood test prior to that visit. Review of Systems - General: No fever no chills - Neurological: No headaches no dizziness - Ear nose throat: No sore throat no hearing difficulty no ear pain - Cardiovascular: No syncope, no chest pain, no palpitations - Gastrointestinal: No nausea vomiting or diarrhea - Endocrine: No polyuria polydipsia no heat intolerance - Genitourinary: No dysuria , no blood in urine Physical Exam General: No acute distress HEENT: Cloudy tympanic membrane, left ear filled with wax, right ear slightly inflamed Neck: Supple Respiratory system: Able to talk in full sentences, no audible wheeze Cardiovascular: S1-S2 regular in rate and rhythm Gastrointestinal: No pain Extremities: No new findings MANAGER DIESEL: Alert awake oriented x3 motor sensory intact Skin: Normal turgor PFSH Medical History Antiphospholipid antibody positive BPH (benign prostatic hyperplasia) CVA (cerebral vascular accident) Hypertension, essential Surgical History History of esophagogastroduodenoscopy (EGD) Hx of colonoscopy History of total right knee replacement Family History Father Stomach cancer Paternal Grandfather Stomach cancer Social History Household Members: Spouse Housing: House Alcohol intake: current Alcohol intake frequency: a few times a week Patient Tobacco Use Status: Former Tobacco user Tobacco use type: Cigarette Years Smoked: 30 +/- e-Cigarette/Vaping Use: Never Used Substance Use Type: Marijuana service: No Current occupational status: employed and retired 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 1. Little interest or pleasure in doing things: not at all 2. Feeling down, depressed, or hopeless: not at all 3. Trouble falling or staying asleep, or sleeping too much: not at all 4. Feeling tired or having little energy: not at all 5. Poor appetite or overeating: not at all 6. Feeling bad about yourself - or that you are a failure or have let yourself or your family down: not at all 7. Trouble concentrating on things, such as reading the newspaper or watching television: not at all 8. Moving or speaking so slowly that other people could have noticed. Or the opposite - being so fidgety or restless that you have been moving around a lot more than usual: not at all 9. Thoughts that you would be better off or of hurting yourself in some way: not at all Total score: 0 Depression Screening Interpretation: Negative Depression Screening Done: Yes 16638 - PHQ-9 Billing: Yes Source: Developed by Drs. José Miguel Fischer, Katya Green, Kin Doan and colleagues, with an educational willi from [employer]. Thrive Questionnaire Date Thrive assessed: 08/10/24 I am a: Patient What is your living situation today?: I have a steady place to live Within the past 12 months, did the food you bought not last and you didn't have the money to get more?: Never true Within the past 12 months, did you worry whether your food would run out before you got money to buy more?: Never true Do you have trouble paying for medicines?: No Do you have trouble getting transportation to medical appointments?: No Do you have trouble paying your heating and electricity bill?: No Do you have trouble taking care of your child, family member or friend?: No Do you have trouble with day-to-day activities such as bathing, preparing meals, shopping, managing finances, etc.?: No Are you currently unemployed and looking for a job?: No Are you interested in more education?: No Please select the resources that you would like help with: None Currently or been in a relationship where the following occur: No concerns reported THRIVE Score: 0 AUDIT C Alcohol Use Questionnaire (AUDIT-C) 1. How often do you have a drink containing alcohol?: 2-3 times a week 2. How many drinks containing alcohol do you have on a typical day when you are drinking?: 1 or 2 3. How often do you have six or more drinks on one occasion?: Never Total Score: 3 WYATT-7 AMB Questionnaire WYATT-7 Date WYATT - 7 assessed: 08/17/24 Feeling nervous, anxious, or on edge: 0 = Not at all Not being able to stop or control worryin = Not at all Worrying too much about different things: 0 = Not at all Trouble relaxin = Not at all Being so restless that it is hard to sit still: 0 = Not at all Becoming easily annoyed or irritable: 0 = Not at all Feeling afraid as if something awful might happen: 0 = Not at all Total WYATT-7 score (0-4 normal; 5-9 mild; 10-14 moderate; 15-21 severe): 0 Source: Developed by Drs. José Miguel Fischer, Katya Green, Kin Doan and colleagues, with an educational willi from [employer]. Physical exam (Primary Care) Vital Signs: Last Vital Signs Temp 98.2 F 12/20/24 08:59 Pulse 92 12/20/24 08:59 BP 132/90 H 12/20/24 08:59 Pulse Ox 96 12/20/24 08:59 Oxygen Delivery Method Room Air 12/20/24 08:59 BMI result Body Mass Index 33.4 Tobacco/Smoking Status: Tobacco use Status Tobacco use date assessed 12/20/24 12/20/24 09:06 Patient Tobacco Use Status Former Tobacco user 12/20/24 09:06 Tobacco use type Cigarette 12/20/24 09:06 e-Cigarette/Vaping Use Never Used 12/20/24 09:06 PHQ-9: PHQ-9 Score PHQ-9: Total score 0 12/20/24 09:23 Depression Screening Interpretation: Negative Thrive Assessment: Date of Thrive Assessment Date Thrive assessed 08/10/24 12/20/24 09:06 Currently or been in a relationship where the following occur: No concerns reported Office Procedures Cerumen Removal From which ear canal was the cerumen removed: left Removal: irrigation Notes: patient tolerated procedure well, no complications and ear canal clear [id number] Irrigation/Lavage Coding Level of Care Code Est Pt Level 4 (76399) Complex EM visit Add On G2211 Diagnoses Hypertension, essential I10 Lipid disorder E78.9 Class 1 obesity due to excess calories with serious comorbidity and body mass index (BMI) of 33.0 to 33.9 in adult E66.09; Z68.33 Body mass index: BMI 33.0-33.9 Obesity classification: adult class 1 (BMI 30 - 34.9) Serious obesity comorbidity presence: with serious comorbidity Elevated fasting blood sugar R73.01 On warfarin therapy Z79.01 Seizures R56.9 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 History of CVA (cerebrovascular accident) Z86.73 CPT Codes Office Procedure - CPT: 08898-Dzk Irrigation/Lavage ([id number]) Additional Codes PHQ-9 - 05787 - PHQ-9 Billing: Yes ([id number]) Assessment & Plan Assessment & Plan (1) Hypertension, essential: Code(s): I10 - Essential (primary) hypertension Category: Medical (2) Lipid disorder: Code(s): E78.9 - Disorder of lipoprotein metabolism, unspecified Category: Medical (3) Obesity due to excess calories: Code(s): E66.09 - Other obesity due to excess calories Category: Medical Qualifiers: Body mass index: BMI 33.0-33.9 Obesity classification: adult class 1 (BMI 30 - 34.9) Serious obesity comorbidity presence: with serious comorbidity Qualified Code(s): E66.09 - Other obesity due to excess calories; Z68.33 - Body mass index [BMI] 33.0-33.9, adult (4) Elevated fasting blood sugar: Code(s): R73.01 - Impaired fasting glucose Category: Medical (5) On warfarin therapy: Code(s): 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 - Has been experiencing nocturia twice per night after discontinuing Flomax, with no significant change in symptoms post-medication. - Has a known history of difficulty with hearing and a feeling of wax buildup in the ears. He is using earwax removal drops, but there is still a sensation of needing further cleaning and fatiguing. He reports waxing worse with swimming activities, causing further blockage and hearing difficulty on the left side. - He is monitoring blood pressure irregularly at home, with recent measurements reported around 130s/90s. He acknowledges stress related to family dynamics potentially affecting blood pressure readings. 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 - Reports living in a shared household with a stepson undergoing a divorce, contributing to heightened stress levels. - Recreational swimming noted, which exacerbates ear wax issues. Family History: - Father had stomach cancer. - Grandfather had stomach cancer. - No known family history of prostate or ear issues. Problem List - Hypertension - Hyperlipidemia - Chronic anticoagulation therapy for TIA - Cerumen impaction and hearing difficulties - stress at home - BMI elevated at 33.4 Patient Instructions - Monitor blood pressure at home regularly and document readings to discuss in future appointments. - Undergo ear irrigation for left ear today - sending ear drops for swimmer's ear right side - Schedule follow-up appointment in four months and complete a fasting blood test prior to that visit. Medications: New [id number]-lpsmjedmr-FE 3.5-10,000-1 mg/mL-unit/mL-% 4 drps otic (ear) left Q8H 10 mL 0RF 7 days
== END 2024-12-20 09:43 | disposition home or self-care (01) ==
LOC: HO.HMCC 08:57
PROVIDERS: PCP Internal Medicine; Visit Provider Internal Medicine
DX: I10 Essential (primary) hypertension (principal); E78.9 Disorder of lipoprotein metabolism, unspecified; E66.09 Other obesity due to excess calories; Z68.33 Body mass index [BMI] 33.0-33.9, adult; R73.01 Impaired fasting glucose; Z79.01 Long term (current) use of anticoagulants; R56.9 Unspecified convulsions; G62.1 Alcoholic polyneuropathy; Z86.73 Personal history of transient ischemic attack (TIA), and cerebral infarction without residual deficits; H61.22 Impacted cerumen, left ear

== ENCOUNTER → 2024-12-20 08:56 | Outpatient (BNVA) | payer MEDICARE, SELFPAY | PROVIDERS: PCP Internal Medicine; Visit Provider Internal Medicine | DX: I10 Essential (primary) hypertension (principal); E78.9 Disorder of lipoprotein metabolism, unspecified; E66.09 Other obesity due to excess calories; Z68.33 Body mass index [BMI] 33.0-33.9, adult; R73.01 Impaired fasting glucose; R56.9 Unspecified convulsions; G62.1 Alcoholic polyneuropathy; H61.22 Impacted cerumen, left ear; Z86.73 Personal history of transient ischemic attack (TIA), and cerebral infarction without residual deficits; Z79.01 Long term (current) use of anticoagulants; Z13.31 Encounter for screening for depression | CPT/HCPCS: 69209; 96127; 99212 ==

== ENCOUNTER 2025-01-12 09:33 | Outpatient (AMB) | payer MEDICARE, SELFPAY ==
[2025-01-12 09:51] LABS: Prothrombin Time Whole Bld POC 44.5 sec (11.1-13.5); ~PT, ~INR - Anti Coag Clinic 3.7 (0.9-1.1)
--- NOTE | 2025-01-12 10:04 | MHC.OFFVISCO ---
Intake Intake Visit Reasons: Anticoagulation Allergies hydrochlorothiazide Allergy (Unknown, Verified 01/12/25 09:45) muscle stiffness Medication List - Last Reconciled 01/12/25 by Shayy Hopkins RN atenolol-chlorthalidone 50-25 mg 1 tab PO DAILY atorvastatin 40 mg PO BEDTIME ciprofloxacin-dexamethasone 0.3-0.1 % 4 drps otic (ears) BID 7 days clindamycin HCl 300 mg PO TID [id number]-hpmdbxrhi-TD 3.5-10,000-1 mg/mL-unit/mL-% 4 drps otic (ear) left Q8H 7 days warfarin See Protocol one to two tablets based on INR level PO daily; dosing to be adjusted as instructed by Anticoagulation Clinic Nursing Note PT.STATES THAT HE HAS HAD MINIMAL GREENS AND HAS HAD A BIT MORE ETOH THAN USUAL. NO CP,SOB,MED CHANGES OR SX OF BLEEDING. DECREASE WARFARIN TO 2.5MGM TODAY AND FOLLOW-UP IN 3 WEEKS(PT.REQUEST). WILL BE SURE TO HAVE DARK GREENS TODAY AND MORE FREQ. IF HAVING MORE SEASONAL FRUITS AND TOMATOES. GOOD UNDERSTANDING OF DOSING INSTR. Anti-Coag Initial Assessment Social Hx Patient Tobacco Use Status: Former Tobacco user Tobacco use type: Cigarette alcohol intake: current Alcohol intake frequency: a few times a week Cardiovascular Hx: HTN and Other Blood Disorder Hx: Hyperlipidemia Hx: Prostate and Other Neurological Hx: Epilepsy/Seizures and Stroke/TIA Cancer HX: No Psych. 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
== END 2025-01-12 10:08 | disposition home or self-care (01) ==
LOC: HO.ACS 09:33
PROVIDERS: PCP Internal Medicine; Visit Provider Internal Medicine Medical Oncology
DX: Z79.01 Long term (current) use of anticoagulants (principal)

== ENCOUNTER → 2025-01-12 09:33 | Outpatient (BNVA) | payer MEDICARE, SELFPAY | PROVIDERS: PCP Internal Medicine; Visit Provider Internal Medicine Medical Oncology | DX: Z86.73 Personal history of transient ischemic attack (TIA), and cerebral infarction without residual deficits (principal); Z79.01 Long term (current) use of anticoagulants; Z51.81 Encounter for therapeutic drug level monitoring | CPT/HCPCS: 85610; 99211 ==

== ENCOUNTER 2025-02-02 09:29 | Outpatient (AMB) | payer MEDICARE, SELFPAY ==
[2025-02-02 09:44] LABS: Prothrombin Time Whole Bld POC 34.1 sec (11.1-13.5); ~PT, ~INR - Anti Coag Clinic 2.8 (0.9-1.1)
--- NOTE | 2025-02-02 09:51 | MHC.OFFVISCO ---
Intake Intake Visit Reasons: Anticoagulation Allergies hydrochlorothiazide Allergy (Unknown, Verified 02/02/25 09:37) muscle stiffness Medication List - Last Reconciled 02/02/25 by Cherie Gallegos RN atenolol-chlorthalidone 50-25 mg 1 tab PO DAILY atorvastatin 40 mg PO BEDTIME warfarin See Protocol one to two tablets based on INR level PO daily; dosing to be adjusted as instructed by Anticoagulation Clinic Nursing Note INR: 2.8 in therapeutic range Medications and supplements reviewed No changes in health, diet, medications, or supplements, Denies any signs and symptoms of bleeding or bruising or clotting. Bleeding, bruising, clotting discussed Nutritional guidance given Dose: keep same [id number] x 1 day/ 7.5mg x 6 days F/U INR: 1 month Patient verbalizes understanding of instructions given Anti-Coag Initial Assessment Social Hx Patient Tobacco Use Status: Former Tobacco user Tobacco use type: Cigarette alcohol intake: current Alcohol intake frequency: a few times a week Cardiovascular Hx: HTN and Other Blood Disorder Hx: Hyperlipidemia Hx: Prostate and Other Neurological Hx: Epilepsy/Seizures and Stroke/TIA Cancer HX: No Psych. 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
== END 2025-02-02 09:52 | disposition home or self-care (01) ==
LOC: HO.ACS 09:29
PROVIDERS: PCP Internal Medicine; Visit Provider Internal Medicine Medical Oncology
DX: Z79.01 Long term (current) use of anticoagulants (principal)

== ENCOUNTER → 2025-02-02 09:29 | Outpatient (BNVA) | payer MEDICARE, SELFPAY | PROVIDERS: PCP Internal Medicine; Visit Provider Internal Medicine Medical Oncology | DX: Z86.73 Personal history of transient ischemic attack (TIA), and cerebral infarction without residual deficits (principal); Z79.01 Long term (current) use of anticoagulants; Z51.81 Encounter for therapeutic drug level monitoring | CPT/HCPCS: 85610; 99211 ==

== ENCOUNTER 2025-03-02 08:01 | Outpatient (REF) | payer MEDICARE, SELFPAY ==
[2025-03-02 10:41] LABS: Alanine Aminotransferase 28 U/L (0-40); Albumin Level 4.5 g/dL (3.5-5.0); Alkaline Phosphatase 55 U/L (39-117); Anion Gap 10 (12-20); Aspartate Amino Transferase 28 U/L (5-37); Blood Urea Nitrogen 22 mg/dL (9-16); Calcium 9.5 mg/dL (8.4-10.2); Carbon Dioxide 30 mmol/L (22-29); Chloride 105 mmol/L (96-108); Estimated Glomerular Filt Rate > 60; Potassium 3.7 mmol/L (3.3-5.1); Sodium 141 mmol/L (135-145); Total Protein 7.0 g/dL (6.5-8.0)
[2025-03-02 11:19] LABS: Prostate Specific Antigen 1.84 ng/mL (<0.05-4.0)
== END 2025-03-02 08:02 | disposition home or self-care (01) ==
LOC: HO.HMGCLDS 08:01
PROVIDERS: PCP Internal Medicine; Visit Provider Internal Medicine
DX: I10 Essential (primary) hypertension (principal); E78.9 Disorder of lipoprotein metabolism, unspecified; R73.01 Impaired fasting glucose; R35.0 Frequency of micturition; R56.9 Unspecified convulsions; G62.1 Alcoholic polyneuropathy; E66.09 Other obesity due to excess calories; Z12.5 Encounter for screening for malignant neoplasm of prostate; Z79.01 Long term (current) use of anticoagulants; Z86.73 Personal history of transient ischemic attack (TIA), and cerebral infarction without residual deficits; Z68.33 Body mass index [BMI] 33.0-33.9, adult; Z87.891 Personal history of nicotine dependence
CPT/HCPCS: 36415; 80053; 84153; 99211

== ENCOUNTER 2025-03-09 09:30 | Outpatient (AMB) | payer MEDICARE, SELFPAY ==
--- NOTE | 2025-03-09 09:56 | MHC.OFFVISCO ---
Intake Intake Visit Reasons: Anticoagulation Allergies hydrochlorothiazide Allergy (Unknown, Verified 03/09/25 09:44) muscle stiffness Medication List - Last Reconciled 03/09/25 by Cherie Gallegos RN atenolol-chlorthalidone 50-25 mg 1 tab PO DAILY atorvastatin 40 mg PO BEDTIME 90 days warfarin 5 - 10 mg (1 - 2 x 5 mg) PO DAILY 30 days Nursing Note INR: 3.7 OUT OF therapeutic range Medications and supplements reviewed- pt was on antbx x 2 for procedures pt also ate more tomatoes and carrots recently both can raise the INR in large amts plus had a few beers recently Denies any signs and symptoms of bleeding or bruising or clotting. Bleeding, bruising, clotting discussed Nutritional guidance given - increase greens when eating more tomatoes and having other foods and beverages that can raise the INR Dose: decrease today's dose to 5mg and eat your spinach, then resume usual dose 5mg mon/ 7.5mg x 6 days F/U INR: 4 weeks per pt request Patient and verbalizes understanding of instructions given Anti-Coag Initial Assessment Social Hx Patient Tobacco Use Status: Former Tobacco user Tobacco use type: Cigarette alcohol intake: current Alcohol intake frequency: a few times a week Cardiovascular Hx: HTN and Other Blood Disorder Hx: Hyperlipidemia Hx: Prostate and Other Neurological Hx: Epilepsy/Seizures and Stroke/TIA Cancer HX: No Psych. 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
[2025-03-09 10:24] LABS: Prothrombin Time Whole Bld POC 44.5 sec (11.1-13.5); ~PT, ~INR - Anti Coag Clinic 3.7 (0.9-1.1)
== END 2025-03-09 10:01 | disposition home or self-care (01) ==
LOC: HO.ACS 09:30
PROVIDERS: PCP Internal Medicine; Visit Provider Internal Medicine Medical Oncology
DX: Z79.01 Long term (current) use of anticoagulants (principal)

== ENCOUNTER → 2025-03-09 09:30 | Outpatient (BNVA) | payer MEDICARE, SELFPAY | PROVIDERS: PCP Internal Medicine; Visit Provider Internal Medicine Medical Oncology | DX: Z86.73 Personal history of transient ischemic attack (TIA), and cerebral infarction without residual deficits (principal); Z79.01 Long term (current) use of anticoagulants; Z51.81 Encounter for therapeutic drug level monitoring | CPT/HCPCS: 85610; 99211 ==

== ENCOUNTER → 2025-03-30 08:43 | Outpatient (BNVA) | payer MEDICARE, SELFPAY | PROVIDERS: PCP Internal Medicine | DX: Z01.30 Encounter for examination of blood pressure without abnormal findings (principal); I10 Essential (primary) hypertension | CPT/HCPCS: 99211 ==

== ENCOUNTER 2025-04-06 09:33 | Outpatient (AMB) | payer MEDICARE, SELFPAY ==
[2025-04-06 09:40] LABS: Prothrombin Time Whole Bld POC 28.0 sec (11.1-13.5); ~PT, ~INR - Anti Coag Clinic 2.3 (0.9-1.1)
--- NOTE | 2025-04-06 09:47 | MHC.OFFVISCO ---
Intake Intake Visit Reasons: Anticoagulation Allergies hydrochlorothiazide Allergy (Unknown, Verified 04/06/25 09:33) muscle stiffness Medication List - Last Reconciled 04/06/25 by Freda Baker RN atenolol-chlorthalidone 50-25 mg 1 tab PO DAILY atorvastatin 40 mg PO BEDTIME 90 days warfarin 5 - 10 mg See Protocol PO DAILY 30 days Nursing Note INR: 2.3 in therapeutic range of 2-3 Medications and supplements reviewed No changes in health, diet, medications, or supplements, Denies any signs and symptoms of bleeding or bruising or clotting. Bleeding, bruising, clotting discussed Nutritional guidance given Dose: 7.5mg X 6 days and 5mg X 1 day (mon) F/U INR: 4 weeks Patient verbalizes understanding of instructions given Anti-Coag Initial Assessment Social Hx Patient Tobacco Use Status: Former Tobacco user Tobacco use type: Cigarette alcohol intake: current Alcohol intake frequency: a few times a week Cardiovascular Hx: HTN and Other Blood Disorder Hx: Hyperlipidemia Hx: Prostate and Other Neurological Hx: Epilepsy/Seizures and Stroke/TIA Cancer HX: No Psych. 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
== END 2025-04-06 09:52 | disposition home or self-care (01) ==
LOC: HO.ACS 09:33
PROVIDERS: PCP Internal Medicine; Visit Provider Internal Medicine Medical Oncology
DX: Z79.01 Long term (current) use of anticoagulants (principal)

== ENCOUNTER → 2025-04-06 09:33 | Outpatient (BNVA) | payer MEDICARE, SELFPAY | PROVIDERS: PCP Internal Medicine; Visit Provider Internal Medicine Medical Oncology | DX: Z79.01 Long term (current) use of anticoagulants (principal) | CPT/HCPCS: 85610; 99211 ==

== ENCOUNTER 2025-05-09 09:29 | Outpatient (AMB) | payer MEDICARE, SELFPAY ==
[2025-05-09 09:45] LABS: Prothrombin Time Whole Bld POC 29.5 sec (11.1-13.5); ~PT, ~INR - Anti Coag Clinic 2.5 (0.9-1.1)
--- NOTE | 2025-05-09 09:51 | MHC.OFFVISCO ---
Intake Intake Visit Reasons: Anticoagulation Allergies hydrochlorothiazide Allergy (Unknown, Verified 05/09/25 09:40) muscle stiffness Medication List - Last Reconciled 05/09/25 by Cherie Gallegos RN amoxicillin 2,000 mg PO ONCE atenolol-chlorthalidone 50-25 mg 1 tab PO DAILY atorvastatin 40 mg PO BEDTIME 90 days warfarin 5 - 10 mg See Protocol PO DAILY 30 days Nursing Note INR: 2.5 in therapeutic range Medications and supplements reviewed No changes in health, diet, medications, or supplements, Denies any signs and symptoms of bleeding or bruising or clotting. Bleeding, bruising, clotting discussed Nutritional guidance given Dose: 5MG X 1 DAY/ 7.5MG X 6 DAYS F/U INR: 5 WEEKS Patient verbalizes understanding of instructions given Anti-Coag Initial Assessment Social Hx Patient Tobacco Use Status: Former Tobacco user Tobacco use type: Cigarette alcohol intake: current Alcohol intake frequency: a few times a week Cardiovascular Hx: HTN and Other Blood Disorder Hx: Hyperlipidemia Hx: Prostate and Other Neurological Hx: Epilepsy/Seizures and Stroke/TIA Cancer HX: No Psych. Illness/Depression: No Coding Level of Care Code Est Patient Level 1 Diagnoses Current use of anticoagulant therapy Z79.01 Results AMB INR Fingerstick AMB INR Fingerstick 2.5 Last Edit by Cherie Gallegos RN on 05/09/25 09:48 Assessment & Plan Assessment & Plan (1) Current use of anticoagulant therapy: Code(s): Z79.01 - correction (current) use of anticoagulants Category: Medical
== END 2025-05-09 09:54 | disposition home or self-care (01) ==
LOC: HO.ACS 09:29
PROVIDERS: PCP Internal Medicine; Visit Provider Internal Medicine Medical Oncology
DX: Z79.01 Long term (current) use of anticoagulants (principal)

== ENCOUNTER → 2025-05-09 09:29 | Outpatient (BNVA) | payer MEDICARE, SELFPAY | PROVIDERS: PCP Internal Medicine; Visit Provider Internal Medicine Medical Oncology | DX: Z86.73 Personal history of transient ischemic attack (TIA), and cerebral infarction without residual deficits (principal); Z79.01 Long term (current) use of anticoagulants; Z51.81 Encounter for therapeutic drug level monitoring | CPT/HCPCS: 85610; 99211 ==

== ENCOUNTER 2025-06-13 09:30 | Outpatient (AMB) | payer MEDICARE, SELFPAY ==
[2025-06-13 09:41] LABS: Prothrombin Time Whole Bld POC 30.7 sec (11.1-13.5); ~PT, ~INR - Anti Coag Clinic 2.6 (0.9-1.1)
--- NOTE | 2025-06-13 09:52 | MHC.OFFVISCO ---
Intake Intake Visit Reasons: Anticoagulation Allergies hydrochlorothiazide Allergy (Unknown, Verified 06/13/25 09:43) muscle stiffness Medication List - Last Reconciled 06/13/25 by Freda Baker RN amoxicillin 2,000 mg PO ONCE atenolol-chlorthalidone 50-25 mg 1 tab PO DAILY atorvastatin 40 mg PO BEDTIME 90 days warfarin 5 - 10 mg See Protocol PO DAILY 30 days Nursing Note INR: 2.6 in therapeutic range of 2-3 Medications and supplements reviewed No changes in health, diet, medications, or supplements, Denies any signs and symptoms of bleeding or bruising or clotting. Bleeding, bruising, clotting discussed Nutritional guidance given Dose: 7.5mg X 6 days and 5mg X 1 day (Mon) F/U INR: 5 weeks Patient verbalizes understanding of instructions given Anti-Coag Initial Assessment Social Hx Patient Tobacco Use Status: Former Tobacco user Tobacco use type: Cigarette alcohol intake: current Alcohol intake frequency: a few times a week Cardiovascular Hx: HTN and Other Blood Disorder Hx: Hyperlipidemia Hx: Prostate and Other Neurological Hx: Epilepsy/Seizures and Stroke/TIA Cancer HX: No Psych. 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
== END 2025-06-13 09:53 | disposition home or self-care (01) ==
LOC: HO.ACS 09:30
PROVIDERS: PCP Internal Medicine; Visit Provider Internal Medicine Medical Oncology
DX: Z79.01 Long term (current) use of anticoagulants (principal)

== ENCOUNTER → 2025-06-13 09:30 | Outpatient (BNVA) | payer MEDICARE, SELFPAY | PROVIDERS: PCP Internal Medicine; Visit Provider Internal Medicine Medical Oncology | DX: I63.9 Cerebral infarction, unspecified (principal); Z51.81 Encounter for therapeutic drug level monitoring; Z79.01 Long term (current) use of anticoagulants | CPT/HCPCS: 85610; 99211 ==